=== PATIENT | female | born 1960 | race Caucasian/White ===

== ENCOUNTER 2018-05-24 06:18 | Day surgery (SDC) | payer OTHER ==
[2018-05-24] MEDS ORDERED: Ringers Lactate 1,000 ML IV ONE (06:52)
[2018-05-24] MEDS ORDERED: FENTANYL CITR 100 MCG/2 ML ONE (06:55)
[2018-05-24] MEDS ORDERED: LIDOCAINE 2% MPF 5 ML VIAL ONE (06:56)
[2018-05-24] MEDS ORDERED: MIDAZOLAM HCL 2 MG/2 ML INJ ONE (06:56)
[2018-05-24] MEDS ORDERED: PROPOFOL 200 MG/20 ML VIAL IV ONE (06:56)
[2018-05-24] MEDS ORDERED: NA CHLORIDE 0.9% 2,000 ML ONE (07:20)
[2018-05-24] MEDS ORDERED: LIDOCAINE 1% W/EPI 1:100,000 MDV 50 ML VIAL ONE (07:28)
[2018-05-24] MEDS ORDERED: KETOROLAC 30 MG/ML INJ ONE (08:12)
[2018-05-24 09:48] VITALS: BP 125/74; TEMP 97.8; O2SAT 99
--- NOTE | 2018-05-24 18:54 | OP ---
Date of Procedure: 05/24/2018 Surgeon: Debbie Garcia MD Preoperative Diagnoses: Postcoital bleeding and pelvic pain. Postoperative Diagnoses: Postcoital bleeding and pelvic pain, and stage II cystocele or anterior wal l prolapse with uterine prolapse. Anesthesia: LMA with paracervical block. Specimens: Endometrial curettings. Complications: None. Drains: None. Condition: The patient is stable. Findings: Uterine cavity empty, lining thin. POP-Q -1, 0, -2, 5, moderate, 7, -2, -2, -3. On recto vaginal exam, the posterior cul-de-sac appeared to be full and this is in between the uterus and the rectum. Description Of Procedure: After informed consent was verified, the patient was taken back to the OR, placed in a supine fashion on the operating table. After MAC was given, she was placed in a dorsal lithotomy position. Pelvic exam was performed. Uterus was found to be anteflexed, small. Please re tanner to the POP-Q above for the prolapse exam. Rectovaginal exam was performed. The anterior lip was grasped with 2 Allis clamps. A paracervical block was given in the usual fashion with 1% lidocaine mixed with 1:100,000 epinephrine, 5 cc at each location using a Betadine prep. The cervix was preppe d. Diagnostic SlimLine hysteroscope was used to enter the cervical canal. There was cervical stenos is, so I had to pull the scope back and dilate in order to get effective entry into the canal. After the canal was entered, the hysteroscope was directed into the uterine cavity. The cavity was e mpty. Both tubal ostia were well visualized. Lining was atrophic. The scope was pulled out. Endom etrial curettings were performed after dilating to a 15-[place]. A very scant amount of endometrium w as obtained, which was consistent with the findings on the exam. After the Allises were removed, ins trument, needle, and sponge counts were done and were correct at the end of the case. Then, a rectov aginal finger was done and exam as above. EBL was minimal. The patient was recovered from anesthesi a in the OR and taken to PACU in stable condition. She will follow up with me in 1 week and we will have a discussion on her further treatment plan. SHERIF Voice ID: [id number] Report ID: [id number]
== END 2018-05-24 09:12 | disposition home or self-care (01) ==
LOC: OR 06:18
PROVIDERS: ATTEND Obstetrics & Gynecology
PROC: 0UJD8ZZ Inspection of Uterus and Cervix, Via Natural or Artificial Opening Endoscopic (ICD-10-PCS; 2018-05-24)
PROC: 0UDB7ZX Extraction of Endometrium, Via Natural or Artificial Opening, Diagnostic (ICD-10-PCS; principal; 2018-05-24 07:30)
DX: N93.0 Postcoital and contact bleeding (principal); R10.2 Pelvic and perineal pain; N81.2 Incomplete uterovaginal prolapse; Z98.51 Tubal ligation status; Z83.3 Family history of diabetes mellitus; Z82.49 Family history of ischemic heart disease and other diseases of the circulatory system; Z82.3 Family history of stroke
CPT/HCPCS: 81025; 88305; J2250; J2704; J3010; J7030

== ENCOUNTER 2018-07-12 06:23 | Day surgery (SDC) | payer OTHER ==
[2018-07-06 12:08] LABS: Absolute Lymphocytes (CBC) 1.8 K/uL (0.7-4.9); Absolute Monocytes 0.4 K/uL (0.1-1.3); Absolute Neutrophil 2.8 K/uL (1.8-8.0); Basophils % 0.9 % (0-1.3); Hematocrit 37.5 % (36.0-45.0); Lymphocytes % 32.4 % (15.3-44.8); MPV 9.3 fL (7.6-11.3); Monocytes % 8.1 % (3.3-12.3); RBC Red Blood Cell Count 4.24 M/uL (3.86-4.86)
[2018-07-06 12:16] LABS: Urine Appearance CLEAR; Urine Bilirubin NEGATIVE (NEG); Urine Blood NEGATIVE (NEG); Urine Color YELLOW; Urine Glucose NEGATIVE (NEG); Urine Protein NEGATIVE (NEG); Urine Urobilinogen 0.2 mg/dL (0.2-1.0); Urine pH 6.5 (5.0-7.0)
[2018-07-06 12:18] LABS: Urine Microscopic Reflex NO UMIC
[2018-07-12] MEDS ORDERED: Ringers Lactate 1,000 ML IV ONE ×3 (06:49→11:25)
[2018-07-12] MEDS ORDERED: SCOPOLAMINE HYDROBROMIDE PATCH TD ONE (06:49)
[2018-07-12] MEDS ORDERED: PROPOFOL 200 MG/20 ML VIAL IV ONE (07:05)
[2018-07-12] MEDS ORDERED: ROCURONIUM 50 MG/5 ML VIAL IV ONE ×2 (07:06→09:01)
[2018-07-12] MEDS ORDERED: LIDOCAINE 2% MPF 5 ML VIAL ONE (07:07)
[2018-07-12] MEDS ORDERED: GLYCOPYRROLATE 0.2 MG/ML SYR ONE (07:07)
[2018-07-12] MEDS ORDERED: FENTANYL CITR 250 MCG/5 ML ONE (07:08)
[2018-07-12] MEDS ORDERED: MIDAZOLAM HCL 2 MG/2 ML INJ ONE (07:09)
[2018-07-12] MEDS ORDERED: ONDANSETRON 4 MG/2 ML VIAL ONE ×2 (07:10→10:53)
[2018-07-12] MEDS ORDERED: DEXAMETHASONE 10 MG/ML VIAL ONE (07:11)
[2018-07-12] MEDS: CEFAZOLIN 2GM (PREMIX IV) 2 GM/50 ML BAG ONE ×2 (07:17→08:00)
[2018-07-12] MEDS: NA CHLORIDE 0.9% 1,000 ML ONE ×2 (07:17→08:00)
[2018-07-12] MEDS ORDERED: FAMOTIDINE 20 MG/2 ML VIAL IV ONE (08:30)
[2018-07-12] MEDS ORDERED: EPHEDRINE SULF 50 MG/ML VIAL ONE (09:02)
--- NOTE | 2018-07-12 10:02 | P.OP ---
Sky Diver: Debbie Garcia (Intra-op consulte) Preoperative diagnosis: Small Bowel Adhesions Postoperative diagnosis: Small Bowel Adhesions Primary procedure: Laparoscopic Adhesiolysis <30 min Anesthesia: GETA Estimated blood loss: <1cc Specimen: None Findings: Thin and thick adhesions from small bowel to anterior abdominal wall Complications: None Transferred to: Other (Patient remained in OR for completion of Dr. Garcia case) Condition: Good
[2018-07-12] MEDS ORDERED: MORPHINE 10 MG/ML VIAL ONE (10:06)
[2018-07-12] MEDS ORDERED: FENTANYL CITR 100 MCG/2 ML ONE (10:13)
[2018-07-12] MEDS ORDERED: CEFAZOLIN 1GM (PREMIX IV) 1 GM/50 ML BAG ONE (10:48)
[2018-07-12] MEDS ORDERED: NEOSTIGMINE 1 MG/ML -5 ML SYRINGE ONE (10:53)
--- NOTE | 2018-07-12 12:04 | OP ---
Date of Procedure: 07/12/2018 Surgeon: Fercho Vera MD, This is an intraoperative consult from Dr. Debbie Garcia for intraabdominal adhesiolysis. Preoperative Diagnosis: Small bowel adhesions. Postoperative Diagnosis: Small bowel adhesions. Procedure Performed: Laparoscopic adhesiolysis, less than 30 minutes. Anesthesia: General endotracheal. Estimated Blood Loss: Less than 1 cc. Specimen: None. Findings: Thick and thin adhesions of the small bowel to the anterior abdominal wall predominantly i n the lower pelvic area. Complications: None. Disposition: The patient remained in the operating room for the completion of the case per Dr. Jensen lynn in good condition. Please see Dr. Garcia's note for full details regarding her operation as I am a simple intraoperative consultation. Procedure In Detail: Dr. Garcia was completing her aspect of the case when she noted significant t hick adhesions to the anterior abdominal wall concerning for either a hernia or significant adhesions to the anterior abdominal wall. Therefore, an intraoperative consult was obtained by myself per Dr. Garcia's request. I inspected the abdominal wall laparoscopically and found that there were thick adhesions from the mid to distal small bowel to the anterior abdominal wall. The thin alveolar adhe sions were taken down using both sharp dissection as well as LigaSure device with gentle traction. T he small bowel adhesions were taken down laparoscopically without any injury to small bowel evident, and the small bowel was inspected at the end of the procedure. I therefore completed my aspect of th e operation. Dr. Garcia assisted me for this portion. I then returned the control back to Dr. Ana zapata in its entirety and completed the this aspect of the case. Please see Dr. Garcia's note for full details regarding her aspect of the operation. All counts were correct at the end of my aspect of the operation. Thank for this consult. SANG/AMY Voice ID: [id number] Report ID: [id number]
[2018-07-12] MEDS ORDERED: KETOROLAC 30 MG/ML INJ ONE (12:11)
[2018-07-12] MEDS ORDERED: MEPERIDINE HCL 25 MG/0.5 ML ONE (12:28)
[2018-07-12] MEDS ORDERED: HYDROCODONE/APAP 5/325 MG TAB ONE (13:39)
[2018-07-12 14:27] VITALS: BP 119/81; TEMP 98; O2SAT 97
--- NOTE | 2018-07-23 03:14 | OP ---
Date of Procedure: 07/12/2018 Surgeon: Debbie Garcia MD Vapor Coater: Naima Thornton. Preoperative Diagnosis: Pelvic pain, deep dyspareunia, postcoital bleeding. Postoperative Diagnosis: Pelvic pain, deep dyspareunia, postcoital bleeding and intra-abdominal adhe sions of the left tube and ovary as well as small bowel, large bowel, and omentum. Procedures Performed: Diagnostic laparoscopy with extensive lysis of adhesions, which took more than 50% of the case, total laparoscopic hysterectomy, bilateral salpingo-oophorectomy, then uterosacral suspension, colpopexy, cystoscopy. Anesthesia: General endotracheal. Vapor Coater Consulting Surgeon: Fercho Vera MD. Please refer to his note for his part of the surgery and the procedure. Specimens: Uterus, bilateral tubes, and ovaries. Complications: No complications. Drains: No drains. Condition: Stable. Indications: The patient is a 58-year-old with presenting symptoms of pelvic pain, deep dyspareunia and postcoital bleeding. She was investigated. Ultrasound did not show any adnexal masses. Endomet rial sampling did not show any atypia or malignancy. Her Pap smear had. DICTATION ENDS HERE TONG/AMY Voice ID: [id number] Report ID: [id number]
--- NOTE | 2018-07-23 03:29 | OP ---
Date of Procedure: 07/12/2018 Surgeon: Debbie Garcia MD Assembler 1St Shift: Naima Thornton. Preoperative Diagnoses: 1.Pelvic pain. 2.Deep dyspareunia and postcoital bleeding, lateral cystocele, stage II. Postoperative Diagnoses: 1.Postcoital bleeding. 2.Pelvic pain. 3.Deep dyspareunia. 4.Uterine prolapse with anterior wall prolapse, which was mostly an apical defect and did not have a ny further anterior wall prolapse after fixing the apex. 5.Extensive bowel adhesions. Specimens: Uterus, bilateral tubes and ovaries. Procedures Performed: 1.Total laparoscopic hysterectomy and bilateral salpingo-oophorectomy. 2.Extensive lysis of small bowel, sigmoid, left tube and ovarian adhesions, which took more than 50% of the case. 3.Uterosacral ligament suspension, colpopexy and cystoscopy. 4.There was a periumbilical hernia possibly, which was also repaired. Estimated Blood Loss: Minimal. Complications: No complications. Drains: None. Condition: Stable. Findings: Extensive bowel adhesions of the small bowel to the anterior abdominal wall, especially in the right lower quadrant in the midline and to the left of the periumbilical area. The sigmoid adhe sions were significant to the left ovary and tube, completely masking the left lateral wall. Then, t here were sigmoid adhesions to the uterus. There is significant uterine prolapse, which after correc tion did not reveal any anterior wall defects. Indications For Procedure: The patient is a 58-year-old, who presented with pelvic pain and deep dys pareunia. She also reported postcoital bleeding. Her Pap smears were negative. Her transvaginal ul trasound did not show any adnexal masses and on endometrial sampling, there was no endometrial atypia or malignancy. I did discuss after negative GI workup and genitourinary symptoms, the patient was c omplaining of mostly vaginal vault symptoms and the pain symptoms. She is through menopause without any periods. Her POP-Q is as follows -1, -1, -4, 4 cm, moderate 7, -2, -2- 5. On examination, uterus was retroflexed with some nodularity in the posterior cul-de-sac. No adnexal masses were noted. So consented the patient for hysterectomy, bilateral salpingo-oophorectomy, possible endometriosis ex cision if found, cystoscopy and for the prolapse, uterosacral ligament suspension, colpopexy, and if there was still an anterior defect present, then I would do an anterior repair as well as a perineorr haphy as needed. She had an appendectomy in 1990 and abdominoplasty earlier this year. She also had a tubal ligation as the other intraabdominal surgery besides the above 2. So, anticipating this plan was to make a colon praumbilical incision to get into the abdominal cavity. Description Of Procedure: After informed consent was verified, 2 g of Ancef were given. The patient was taken back to the OR, placed in supine fashion on the operating table. After general anesthesia was given, she was placed in a dorsal lithotomy position. Arms were tucked by the side, positioning checked and pelvic exam performed. POP-Q as follows: -2, -1, -3, 4 cm moderate, 7, -2, -2 and -4. After replacing the uterus back in its place at the apex, there was not a significant anterior wall bulge and so plan was to perform an uterosacral suspension, colpopexy, then figure if there is any an terior pair or perineorrhaphy. Abdomen, vulva, vagina, and perineum were prepped and draped in a sterile fashion. Villar was placed to drain the bladder and attached to cysto tubing to an LR bag, emptied 300 for retrograde filling. This was left on the floor for drainage. VCare large was introduced into place and fixed. This area was draped. A 1 cm infra supraumbilical incision was made with a scalpel using the open laparoscopy technique. F ascia was incised, especially since there was an abdominoplasty. There was a curvilinear incision ma sami in the supraumbilical area and once the fascia was incised in the midline, the edges were tagged. Peritoneal cavity was entered. Peritoneum bluntly entered with the finger and then S retractors surendra alex to introduce the sound, the site of entry was checked and was unremarkable. However, just immedi ately inferior to the entry, there were several adhesions, especially there were dense adhesions of t he small bowel to the anterior abdominal wall in 1 particular location from the umbilicus to the righ t lower quadrant. These were plastered to the abdominal wall, possibly a hernia at some point becaus e I could not see a plane between this and the bowel. There were significant other adhesions, omental adhesions, small bowel adhesions and laterally sigmoi d adhesions. So, placed a 5 mm left lower quadrant port and then started to take down the adhesions just inferior to the umbilicus in a systematic fashion using sharp scissors. Then, once this was greg ar enough and using the suprapubic incision, the adhesions were also taken down using the technique t o make windows and taken down sharply, cauterizing with the bipolar as needed. If there was bleeding , but mostly this did not need to be done. The suprapubic area was cleaned up, then a 10 mm suprapub ic incision was made and by using the 10 mm scope through the suprapubic incision, the adhesions were taken down in the right lower quadrant as well. All the adhesions were taken down just leaving the small bowel loops to the anterior abdominal wall where they appeared to be adherent to the abdominal wall or possibly herniated through the abdominal wall defect due to the abdominoplasty that was done, could not recognize the site of the open appendectomy, incision or scar, so I decided to call Dr. Williams lara for consultation and he decided to take down the adhesions from [place] for the small bowel and I assisted him on this. Please refer to his dictation. Once these adhesions were taken down, I proce eded with the rest of my surgery. Then, attention was directed to the left lower quadrant where the sigmoid was adherent. I opened up the lateral wall. The natural attachment of the sigmoid was taken down working my way down towards the left tube and ovary. Once I got to the left tube and ovary and space was made here, the tube had to be dissected and pulled out of the adhesions. The lateral inci diego was made in the broad ligament to open up the structures here, then once opened up, the round li gament was distal. The medial leaf of the broad ligament was dissected; however, I could not see in the medial aspect of the broad ligament since the sigmoid colon was plastered to the left lateral wal l. So came down to the sigmoid, all the way down to the cul-de-sac, adhesions were here and started taking down the adhesions from the cul-de-sac all the way to the left uterosacral ligament. Once I g ot here with sharp dissection with scissors, then went back again to the IP ligament here. After devorah ing the natural attachment of the colon down, I was able to see the IP ligament. This was picked up and retracted laterally. The ovary was from the adhesions with sharp and cautery dissectio n. Once this was slit laterally, then the sigmoid colon was dissected from the medial leaf of the br oad ligament by creating small windows and taking adhesions down sharply carefully protecting the ure ter in the process by retracting and dissecting it laterally. Once all the way to the lateral wall w as dissected to the level of the left lateral aspect of the left uterosacral, then the entire sigmoid was retracted inferiorly and medially. The natural anatomy was restored by taking down these adhesi ons. There were omental adhesions that were present that were also taken down and this area to separ ate the sigmoid and the omentum was retracted superiorly. The small bowel was pushed up into the upp er abdominal cavity as well with the bag. Then, after all was done and setup, both ureters were visu alized from the pelvic brim to the ureteric tunnel and had no anatomic distortion. So, the plan was to use the LigaSure to start the hysterectomy. The round ligaments were taken down. The peritoneum in the anterior aspect was opened up to raise th e bladder flap all the way to the opposite side. Then, the round ligament on the right side was take n down. The utero-ovarian ligament was taken down. The dissected ovary was left alone. The posteri or broad ligament was taken down to the left uterosacral here. Dissection was performed to clearly s eparate the ureter from the lateral aspect of the uterosacral ligament, isolating the vessels. The b road ligament was taken down and the vessels were cleaned up. Then on the opposite side, similar dis section was performed to take down the tube. The utero-ovarian ligament, mesosalpinx, round ligament was taken down, anterior broad ligament was connected to complete the bladder flap and posteriorly t he broad ligament was taken down to the right uterosacral to open up the broad ligament. This was sk eletonized to isolate the vessels. Once this was done, the bladder flap was dissected. Attention was paid to the bladder flap. The cervix was large and there was cystic change, so I had t o make an incision on top of the VCare cup and sharp and cautery dissection were performed to retract about the bladder inferiorly about 3 cm from the area of the future colpotomy. Once this was done a nd the cup was cleared up, monopolar hook blade was used to create windows on the medial aspect of th e vessels on the right side. Then bipolar basket tip was used to cauterize the vessels, both ascendi ng and descending branches. Then, the LigaSure was used to cauterize and cut. Once this was done, t he vessels were . The cardinal ligaments were taken down as well all the way to the uterosa cral ligament on the right side. Then on the left side, similar dissection was performed. Everythin g was after cautery and cutting. Then, the cardinal ligaments were taken down. The suppor ts were taken down. The anterior midline vaginal wall was well exposed, about 4 cm. Then, once the colpotomy was performed, the monopolar hook blade in a circumferential fashion, the specimen was deta ched and this was pulled out through the vagina. A vaginal occluder bulb was placed here to retain t he pneumoperitoneum. Then, attention was directed to the adnexa and the left ovary and tube were dis sected, removed, and the right ovary and tube were removed as well. These were retrieved through the vagina as well as the suprapubic ports. Once they were all retrieved, thorough irrigation and sucti on were performed. There was excellent hemostasis at both sides. Then, vaginal closure was performe d with the help of a simple 0 Vicryl stitch at the left angle, then a simple 0 Vicryl suture placed a t the right angle, the tail of which was used to continuously run the vaginal cuff. Once this was cl osed, the suture was tied to the lateral left suture. Then, I took 0 PDS and the uterosacral ligamen t was plicated first on the left side from lateral to medial. Two sutures were taken running continu ous, then the posterior vaginal wall was taken and then the anterior vaginal wall and the suture was held on as hemostats. A similar suture was placed on the other side, did not go quite as high, but t he uterosacral ligament could be identified in its distal aspect. I started the suture and 2 sutures through the ligament, 1 through the rectovaginal septum, 1 through the anterior precervical fascia. All these were taken and the suture tied down without any similar lead. The other suture was also t ied down. There was excellent support at the apex. The camera was taken out. Cystoscopy was performed after removing the Villar with a 30-degree lens, n ormal saline and a 17-[place] sheath. There were normal strong jets of urine from both ureteric orifi ruth. No evidence of any trauma to the bladder. So at this point, the catheter was replaced. Vagina l exam was performed. There was excellent support. The point C was at -7 and point BA was -2 to -3, so vaginal occluder bulb was removed due to this exam and left out. Then back in, thoroughly examined all the pedicles. There was excellent hemostasis. After thorough irrigation and suction, the trocars were removed under direct vision. All the areas of dissection of the bowel, omentum were all checked and they were hemostatic. After all the trocars were removed, gas was deflated. Lois was removed. The fascia here was well exposed all the way down and sutures with 0 PDS were placed with 2 [id number] and these were ti ed down. Then the Villar was removed. Instrument, needle, and sponge counts were done and were corre ct at the end of the case. The suprapubic incision of the fascia was unable to be closed, but a deep stitch was placed. All the skin incisions were closed with the help of interrupted 4-0 Vicryl sutur es. The patient tolerated the procedure well. She will follow up with me in 1 week. SHERIF Voice ID: [id number] Report ID: [id number]
== END 2018-07-12 14:18 | disposition home or self-care (01) ==
LOC: OR 06:23
PROVIDERS: ATTEND Obstetrics & Gynecology
PROC: 0UT24ZZ Resection of Bilateral Ovaries, Percutaneous Endoscopic Approach (ICD-10-PCS; 2018-07-12)
PROC: 0UT74ZZ Resection of Bilateral Fallopian Tubes, Percutaneous Endoscopic Approach (ICD-10-PCS; 2018-07-12)
PROC: 0USG4ZZ Reposition Vagina, Percutaneous Endoscopic Approach (ICD-10-PCS; 2018-07-12)
PROC: 0DNN4ZZ Release Sigmoid Colon, Percutaneous Endoscopic Approach (ICD-10-PCS; 2018-07-12)
PROC: 0DN84ZZ Release Small Intestine, Percutaneous Endoscopic Approach (ICD-10-PCS; 2018-07-12)
PROC: 0DNW4ZZ Release Peritoneum, Percutaneous Endoscopic Approach (ICD-10-PCS; 2018-07-12)
PROC: 0UT94ZZ Resection of Uterus, Percutaneous Endoscopic Approach (ICD-10-PCS; principal; 2018-07-12 07:30)
DX: D25.9 Leiomyoma of uterus, unspecified (principal); N72 Inflammatory disease of cervix uteri; N94.6 Dysmenorrhea, unspecified; N93.0 Postcoital and contact bleeding; R10.2 Pelvic and perineal pain; N81.4 Uterovaginal prolapse, unspecified; K66.0 Peritoneal adhesions (postprocedural) (postinfection); K42.9 Umbilical hernia without obstruction or gangrene; N94.12 Deep dyspareunia; K44.9 Diaphragmatic hernia without obstruction or gangrene
CPT/HCPCS: 36415; 81003; 85025; 86850; 86900; 86901; 88305; 88307; J0690; J1100; J2175; J2250; J2405; J2704; J2710; J3010; J7030

== ENCOUNTER 2019-01-15 06:33 | Day surgery (SDC) | payer OTHER ==
[2019-01-14 13:57] LABS: Absolute Lymphocytes (CBC) 1.8 K/uL (0.7-4.9); Basophils % 1.1 % (0-1.3); Eosinophils % 6.8 % (0-4.4); Hematocrit 39.6 % (36.0-45.0); Lymphocytes % 32.3 % (15.3-44.8); MPV 8.8 fL (7.6-11.3); Monocytes % 6.9 % (3.3-12.3); RBC Red Blood Cell Count 4.48 M/uL (3.86-4.86)
[2019-01-14 14:11] LABS: Potassium 4.2 mmol/L (3.5-5.1)
--- NOTE | 2019-01-14 14:23 | RAD REPORT ---
EXAM DESCRIPTION: RAD - Chest Pa And Lat (2 Views) - 01/14/2019 1:49 pm CLINICAL HISTORY: Preop chest, pending cardiac catheterization COMPARISON: July 2013 TECHNIQUE: PA and lateral views of the chest were obtained. FINDINGS: The lungs are clear of failure, infiltrate or mass. Lung markings are mildly prominent but not clearly different from comparison. Heart size is normal and central vasculature is within norm al limits. No pleural effusion or pneumothorax seen. No acute bone finding. Degenerative and scolio tic changes to the spine are stable. No aortic abnormality. IMPRESSION: No acute cardiopulmonary process. No significant change from comparison.
[2019-01-14 14:55] LABS: Protime INR 0.94
--- OUTSIDE RECORDS SUMMARY | 2019-01-15 06:36 | XMS REPORT ---
:1960 [facility] Address [address] [place] [address] Dr. Sanchez [address] [place] [id number] Care Team Providers Name Role Phone Unavailable Unavailable Unavailable Problems This patient has no known problems. Allergies, Adverse Reactions, Alerts This patient has no known allergies or adverse reactions. Medications This patient has no known medications. Encounters Start End Encounter Admission Attending Care Care Encounter Date/Time Date/Time Type Type Clinicians Facility Department ID 2018-11-14 2018-11-14 Outpatient [id number] 07:40:00 07:40:00
[2019-01-15] MEDS ORDERED: HEPA 1000U/500MLS 1,000 UNIT/500 ML BAG IV ONE (06:52)
[2019-01-15] MEDS ORDERED: LIDOCAINE 1% MPF 30 ML VIAL ONE (06:52)
[2019-01-15] MEDS ORDERED: NA CHLORIDE 0.9% 500 ML ONE (06:57)
[2019-01-15] MEDS ORDERED: MIDAZOLAM HCL 2 MG/2 ML INJ ONE ×3 (07:35→07:56)
[2019-01-15] MEDS ORDERED: NITROGLYCERIN/D5W 0 MG/0 ML BTL IV ONE (07:36)
[2019-01-15] MEDS ORDERED: FENTANYL CITR 100 MCG/2 ML ONE (07:36)
[2019-01-15] MEDS ORDERED: ATROPINE SULF 1 MG/10 ML SYR IV ONE (07:36)
[2019-01-15] MEDS ORDERED: NITROGLYCERIN 100 MCG/ML SYR (for cath lab use only) IV ONE (07:36)
[2019-01-15] MEDS ORDERED: NA CHLORIDE 0.9% 0 ML ONE (07:36)
[2019-01-15] MEDS ORDERED: FLUMAZENIL 0.1 MG/ML (5 mL VIAL) IV ONE (07:55)
--- NOTE | 2019-01-15 12:16 | OP ---
Surgeon: Dwaine March MD Operator Bearer Systems: Dolores Reynolds. The patient was admitted for heart catheterization as an outpatient today, 01/15/2019. Procedure: Left heart catheterization. Selective coronary arteriogram. Indication: Unstable angina. Procedure In Detail: The patient received a total of 4 mg of Versed and 25 of fentanyl for sedation. She was prepped and draped in the routine sterile fashion. A 6-Angolan sheath introduced in the rig ht common femoral artery successfully. Angio-Seal was used to close the case. Coronary arteriograph y was done using 6-Angolan Balta catheter, left and right respectively. She had about a 30% stenosi s in the LAD right at the diagonal takeoff. The diagonal OM circumflex and RCA were normal. She was right dominant. There were no complications. Blood Loss: 5 cc. Final Diagnoses: Mild coronary artery disease. Plan: Plan is for medical therapy including statins. Anesthesia: Total conscious sedation was 30 minutes. RIAN/AMY Voice ID: [id number] Report ID: [id number]
[2019-01-16 18:42] VITALS: BP 110/72; TEMP 97.2; O2SAT 98
== END 2019-01-15 10:10 | disposition home health service (06) ==
LOC: CCL 06:33
PROC: B201YZZ Plain Radiography of Multiple Coronary Arteries using Other Contrast (ICD-10-PCS; principal; 2019-01-15)
DX: I25.110 Atherosclerotic heart disease of native coronary artery with unstable angina pectoris (principal); I10 Essential (primary) hypertension; E78.6 Lipoprotein deficiency; G47.30 Sleep apnea, unspecified; Z87.891 Personal history of nicotine dependence; Z82.49 Family history of ischemic heart disease and other diseases of the circulatory system
CPT/HCPCS: 36415; 71046; 80048; 85025; 85610; 85730; 93454; C1760; C1893; J0583; J2250; J3010

== ENCOUNTER 2019-03-17 14:58 | Emergency (ER) | payer OTHER ==
--- OUTSIDE RECORDS SUMMARY | 2019-03-17 15:02 | XMS REPORT ---
:1960 [facility] [address] [place] [address] Dr. Sanchez [address] [place] [id number] Care Team Providers Name Role Phone Unavailable Unavailable Unavailable Problems This patient has no known problems. Allergies, Adverse Reactions, Alerts This patient has no known allergies or adverse reactions. Medications This patient has no known medications. Encounters Start End Encounter Admission Attending Care Care Encounter Date/Time Date/Time Type Type Clinicians Facility Department ID 2018-11-14 2018-11-14 Outpatient [facility] [id number] 07:40:00 07:40:00
--- OUTSIDE RECORDS SUMMARY | 2019-03-17 15:02 | XMS REPORT | Summary of Care ---
:1960 Author Organization [facility] Address [address] [place] [id number]- Encounter HQ Mamadou(FIN) [id number] Date(s): 11/14/18 - 11/14/[address] [address]- Discharge Disposition: Home or Self Care Attending Physician: Rashi Franklin MD Referring Physician: Rashi Franklin MD Vital Signs Most recent to oldest 1 2 3 [Reference Range]: Height 162.56 cm 162.56 cm (11/14/18 8:09 AM) (10/26/18 10:57 AM) Blood Pressure [90-140/60-90 119/84 mmHg 117/82 mmHg 121/82 mmHg mmHg] (11/14/18 1:00 PM) (11/14/18 12:45 PM) (11/14/18 12:30 PM) Respiratory Rate [14-20 BRMIN] 16 BRMIN 13 BRMIN 20 BRMIN (11/14/18 1:00 PM) *LOW* (11/14/18 12:30 PM) (11/14/18 12:45 PM) Weight 77.004 kg 79.091 kg (11/14/18 8:09 AM) (10/26/18 10:57 AM) Body Mass Index 29.14 m2 29.93 m2 (11/14/18 8:09 AM) (10/26/18 10:57 AM) Problem List Condition Effective Dates Status Health Status Informant GERD (gastroesophageal reflux Active disease)(Confirmed) Sleep apnea(Confirmed) Active Allergies, Adverse Reactions, Alerts No Known Medication Allergies Medications acetaminophen (ANES) Route: IV, Drug form: INJ, ONCE, Stop date: 11/14/18 11:01:00 CDT Start Date: 11/14/18 Stop Date: 11/14/18 Status: CompletedAdrenevive Adrenevive, 2 capsules, PO, Daily, Refill(s) 0 Start Date: 10/26/18 Status: OrderedANES albuterol 0.083% inhalation solution 2.49 mg, 3 mL, Route: NEB, Drug form: SOLN, Q20Min, Dosing Weight 77.004, kg, PRN Wheezing, Priority: STAT, Start date: 11/14/18 11:53:00 CDT, Duration: 30 day, Stop date: 12/14/18 11:52:00 CDT Notes: SEE RT DOCUMENTATION (Same as: Proventil) Start Date: 11/14/18 Stop Date: 11/14/18 Status: DiscontinuedANES diphenhydrAMINE 12.5 mg, 0.25 mL, Route: IVP, Drug form: INJ, Q6H, Dosing Weight 77.004, kg, PRN Itching, Start date: 11/14/18 11:53:00 CDT, Duration: 30 day, Stop date: 11:52:00 CDT Notes: (Same as: Benadryl) Start Date: 11/14/18 Stop Date: 11/14/18 Status: DiscontinuedANES flumazenil 0.2 mg, 2 mL, Route: IVP, Drug form: INJ, PRN, Dosing Weight 77.004, kg, PRN Benzodiazepine Reversal, Initial dose, Start date: 11/14/18 11:53:00 CDT, Duration: 30 day, Stop date: 12/14/18 11:52:00 CDT Notes: (Same as: Romazicon) Start Date: 11/14/18 Stop Date: 11/14/18 Status: DiscontinuedANES hydrALAZINE 10 mg, 0.5 mL, Route: IVP, Drug form: INJ, Q20Min, Dosing Weight 77.004, kg, PRN Elevated BP, Start date: 11/14/18 11:53:00 CDT, Duration: 2 doses or times, Stop date: Limited # of times Notes: (Same as: Apresoline)Push over 5 minutes Start Date: 11/14/18 Stop Date: 11/14/18 Status: DiscontinuedANES HYDROmorphone 0.5 mg, 0.25 mL, Route: IVP, Drug form: INJ, Q5Min, Dosing Weight 77.004, kg, PRN Pain Score 7-10, Start date: 11/14/18 11:53:00 CDT, Duration: 4 doses or times, Stop date: Limited # of times Notes: Same as Dilaudid Start Date: 11/14/18 Stop Date: 11/14/18 Status: DiscontinuedANES morphine Sulfate 2 mg, 0.5 mL, Route: IVP, Drug form: SOLN, Q5Min, Dosing Weight 77.004, kg, PRN Pain Score 4-6, Start date: 11/14/18 11:53:00 CDT, Duration: 5 doses or times, Stop date: Limited # of times Notes: (Same as:MORPhine Sulfate) Start Date: 11/14/18 Stop Date: 11/14/18 Status: DiscontinuedANES naloxone 0.4 mg, 1 mL, Route: IVP, Drug form: INJ, Q2MIN, Dosing Weight 77.004, kg, PRN Narcotic Reversal, Start date: 11/14/18 11:53:00 CDT, Duration: 8 doses or times , Stop date: Limited # of times Notes: Same as Narcan Start Date: 11/14/18 Stop Date: 11/14/18 Status: DiscontinuedANES ondansetron 4 mg, 2 mL, Route: IVP, Drug form: INJ, ONCE, Dosing Weight 77.004, kg, PRN Nausea & Vomiting, Start date: 11/14/18 11:53:00 CDT Notes: (Same as: Anne) MEDICATION WASTE Product Size: 4 mgProduct Wasted: ___ mg Start Date: 11/14/18 Stop Date: 11/14/18 Status: DiscontinuedANES racepinephrine 11.25 mg, 0.5 mL, Route: NEB, Drug Form: SOLN, Dosing Weight 77.004, kg, PRN, PRN Shortness of breath, Start date: 11/14/18 11:53:00 CDT, Duration: 30 day, Stop date: 12/14/18 11:52:00 CDT Notes: (racepinephrine *2.25% inh 0.5ml SOLN) (Same as:S2) Start Date: 11/14/18 Stop Date: 11/14/18 Status: DiscontinuedcefOXitin (ANES) Route: IV, Drug form: INJ, ONCE, Stop date: 11/14/18 10:56:00 CDT Start Date: 11/14/18 Stop Date: 11/14/18 Status: CompletedEstrol pellets Estrol pellets, 4 mg=, frequency unknown, Refill(s) 0 Start Date: 10/26/18 Status: OrderedfentaNYL (ANES) Route: IV, Drug form: INJ, ONCE, Stop date: 11/14/18 10:56:00 CDT Start Date: 11/14/18 Stop Date: 11/14/18 Status: CompletedFerrochel Ferrochel, one tablet, PO, Daily, Refill(s) 0 Start Date: 10/26/18 Status: Orderedglycopyrrolate (ANES) Route: IV, Drug form: INJ, ONCE, Stop date: 11/14/18 12:00:00 CDT Start Date: 11/14/18 Stop Date: 11/14/18 Status: Completedheparin 5,000 unit, 1 mL, Route: SUB-Q, Drug form: INJ, ONCALL, Start date: 11/14/18 6: 00:00 CDT, Duration: 1 doses or times Notes: porcine heparin Start Date: 11/14/18 Stop Date: 11/14/18 Status: CompletedK-force K-force, one capsule, PO, Daily, Refill(s) 0 Start Date: 10/26/18 Status: OrderedketOROLAC (ANES) IV, ONCE Start Date: 11/14/18 Stop Date: 11/14/18 Status: CompletedLactated Ringers Injection IV (ANES) 1000 mL Route: IV, Total Volume: 1,000, Start date: 11/14/18 10:12:00 CDT, Stop date: 11:12:00 CDT Start Date: 11/14/18 Stop Date: 11/14/18 Status: Completedlidocaine (ANES) Route: IV, Drug form: INJ, ONCE, Stop date: 11/14/18 10:56:00 CDT Start Date: 11/14/18 Stop Date: 11/14/18 Status: CompletedMagnesium Magnesium, one tablet, PO, Daily, Refill(s) 0 Start Date: 10/26/18 Status: OrderedMefoxin + Sodium Chloride 0.9% IV 100 mL 2 gm, Route: IVPB, ONCALL, Start date: 11/14/18 6:00:00 CDT, Duration: 1 doses or times, ABX Indication: Surgical Prophylaxis Notes: (Same As: Mefoxin) MEDICATION WASTE Product Size: 2000 mgProduct Wasted: ___ mg Start Date: 11/14/18 Stop Date: 11/14/18 Status: Discontinuedmidazolam (ANES) Route: IV, Drug form: SOLN, ONCE, Stop date: 11/14/18 11:01:00 CDT Start Date: 11/14/18 Stop Date: 11/14/18 Status: Completedmultivitamin one tablet, PO, Daily, 0 Refill(s) Start Date: 10/26/18 Stop Date: 11/14/18 Status: Discontinuedneostigmine (ANES) Route: IV, Drug form: INJ, ONCE, Stop date: 11/14/18 12:00:00 CDT Start Date: 11/14/18 Stop Date: 11/14/18 Status: Completedondansetron (ANES) Route: IV, Drug form: INJ, ONCE, Stop date: 11/14/18 11:57:00 CDT Start Date: 11/14/18 Stop Date: 11/14/18 Status: CompletedPepcid 20 mg, Route: IV, ONCE, Dosing Weight 77.004, kg, Start date: 11/14/18 9:35:00 CDT, Stop date: 11/14/18 9:35:00 CDT Start Date: 11/14/18 Stop Date: 11/14/18 Status: CompletedPrilosec 40 mg oral delayed release capsule 40 mg=1 cap, PO, Daily, # 30 cap, 0 Refill(s) Start Date: 10/26/18 Stop Date: 11/14/18 Status: Discontinuedprogesterone 150 mg, PO, Daily, 0 Refill(s) Start Date: 10/26/18 Status: Orderedpropofol (ANES) Route: IV, Drug form: INJ, ONCE, Stop date: 11/14/18 10:56:00 CDT Start Date: 11/14/18 Stop Date: 11/14/18 Status: CompletedReglan 10 mg, Route: IV, ONCE, Dosing Weight 77.004, kg, Start date: 11/14/18 9:36:00 CDT, Stop date: 11/14/18 9:36:00 CDT Start Date: 11/14/18 Stop Date: 11/14/18 Status: Completedrocuronium (ANES) Route: IV, Drug form: INJ, ONCE, Stop date: 11/14/18 11:06:00 CDT Start Date: 11/14/18 Stop Date: 11/14/18 Status: Completedscopolamine 1 patch, Route: TOP, Drug form: ERFILM, ONCALL, Start date: 11/14/18 6:00:00 CDT , Duration: 1 doses or times Notes: "Remove old patch before application of new patch" Change patch every 72 hours (Same as: Transderm-Scop) Start Date: 11/14/18 Stop Date: 11/14/18 Status: Completedsuccinylcholine (ANES) Route: IV, Drug form: INJ, ONCE, Stop date: 11/14/18 10:56:00 CDT Start Date: 11/14/18 Stop Date: 11/14/18 Status: Completedtestosterone 100 mg, frequency unknown, 0 Refill(s) Start Date: 10/26/18 Status: Ordered Results Most recent to oldest [Reference Range]: 1 Neutrophils # [1.5-8.1 K/CMM] 2.7 K/CMM (10/26/18 11:20 AM) Lymphocytes # [1.0-5.5 K/CMM] 1.6 K/CMM (10/26/18 11:20 AM) Monocytes # [0.0-0.8 K/CMM] 0.4 K/CMM (10/26/18 11:20 AM) Eosinophils # [0.0-0.5 K/CMM] 0.5 K/CMM (10/26/18 11:20 AM) Basophils # [0.0-0.2 K/CMM] 0.1 K/CMM (10/26/18 11:20 AM) Vitamin B1 [66.5-200.0 nMol/L] 74.5 nMol/L 1 *NA* (10/26/18 AM) eGFR 88 mL/min/1.73m2 2 *NA* (10/26/18 AM) A/G Ratio [0.7-1.6] 1.1 (10/26/18 AM) Albumin Lvl [3.5-5.0 g/dL] 3.8 g/dL (10/26/18 AM) Alk Phos [39-136 unit/L] 99 unit/L (10/26/18 AM) ALT [0-65 unit/L] 25 unit/L (10/26/18 AM) AGAP [10.0-20.0 mEq/L] 11.7 mEq/L (10/26/18 AM) AST [0-37 unit/L] 17 unit/L (10/26/18 AM) B/C Ratio [6-25] 17 (10/26/18 AM) Basophils [0.0-1.0 %] 1.2 % *HI* (10/26/18 AM) BUN [7-22 mg/dL] 13 mg/dL (10/26/18 AM) Calcium Lvl [8.5-10.5 mg/dL] 9.2 mg/dL (10/26/18 AM) Chloride Lvl [95-109 mEq/L] 107 mEq/L (10/26/18 AM) CO2 [24-32 mEq/L] 28 mEq/L (10/26/18 AM) Creatinine Lvl [0.50-1.40 mg/dL] 0.76 mg/dL (10/26/18 AM) Eosinophils [0.0-4.0 %] 8.8 % *HI* (10/26/18) Globulin [2.7-4.2 g/dL] 3.6 g/dL (10/26/18 AM) Glucose Lvl [70-99 mg/dL] 90 mg/dL (10/26/18 AM) Hct [36.0-48.0 %] 39.8 % (4/12/19 11:20 AM) Hgb [12.0-16.0 g/dL] 13.2 g/dL (10/26/18 AM) Potassium Lvl [3.5-5.1 mEq/L] 4.7 mEq/L (10/26/18 AM) Lymphocytes [20.0-40.0 %] 30.7 % (10/26/18 AM) MCH [27.0-31.0 pg] 29.1 pg (10/26/18 AM) MCHC [32.0-36.0 g/dL] 33.3 g/dL (10/26/18 AM) MCV [80.0-98.0 fL] 87.5 fL (10/26/18 AM) Monocytes [2.0-12.0 %] 8.4 % (10/26/18 AM) MPV [7.4-10.4 fL] 8.5 fL (10/26/18 AM) Sodium Lvl [135-145 mEq/L] 142 mEq/L (10/26/18 AM) Platelet [133-450 K/CMM] 263 K/CMM (10/26/18 AM) Segs [45.0-75.0 %] 50.9 % (10/26/18 AM) Total Protein [6.4-8.4 g/dL] 7.4 g/dL (10/26/18 AM) RBC [4.20-5.40 M/CMM] 4.55 M/CMM (10/26/18 AM) RDW [11.5-14.5 %] 14.7 % *HI* (10/26/18 AM) Bili Total [0.2-1.3 mg/dL] 0.5 mg/dL (10/26/18 AM) WBC [3.7-10.4 K/CMM] 5.3 K/CMM (10/26/18 AM) 1Result Comment: This test was developed and its performance characteristics determined by [facility]. It has not been cleared or approved by the Food and Drug Administration. Performed At: [facility] [address] [id number] Adams Cannon MD Ph:[phone] Comment: The eGFR is calculated using the CKD-EPI formula. In most young, healthy individualsthe eGFR will be >90 mL/min/1.73m2. The eGFR declines with age. An eGFR of 60-89 may be normal insome populations, particularly the elderly, for whom the CKD-EPI formula has not been extensively validated. Use of the eGFR is not recommended in the following populations: Individuals with unstable creatinine concentrations, including patients and those with serious co-morbid conditions. Patients with extremes in muscle mass or diet. The data above are obtained from the National Kid[employer] Disease Education Program ( NKDEP) which additionally recommends that when the eGFR is used in patients with extremes of body mass index for purposesof drug dosing, the eGFR should be multiplied by the estimated BMI. Immunizations No data available for this section Procedures Procedure Date Related Diagnosis Body Site Status Appendectomy Completed Breast augmentation Completed Facelift operation Completed Miscellaneous operations1 Completed Total hysterectomy Completed 1heart cath 2016, neck surgery 2014, back surgery 2016 Social History Social History Type Response Smoking Status Former smoker; Type: Cigarettes; Exposure to Tobacco Smoke None ; Cigarette Smoking Last 365 Days No; Reg Smoking Cessation Counseling Yes entered on: 10/26/18 Assessment and Plan No data available for this section
--- OUTSIDE RECORDS SUMMARY | 2019-03-17 15:02 | XMS REPORT | Continuity of Care Document ---
:1960 Author Organization [facility] Information [place] Care Team Providers Name Role Phone [facility] Information iPowow Unavailable Unavailable Problems Problem Status Onset Classification Date Comments Source Date Reported K44.9,DIAPHRAGMATIC Active 10/10/19 [facility] HERNIA WITHOUT 19 [place] OBSTR Acute maxillary Resolved Problem 06/11/2018 [place] sinusitis [facility] Cervical adenopathy Resolved Problem 06/11/2018 [facility] Gastroesophageal Active Problem 11/16/2018 [facility] reflux disease [facility] (disorder) Sleep apnea Active Problem 11/16/2018 [facility] (finding) [facility] Medications Medication Details Route Status Patient Ordering Order Source Instructions Provider Date neostigmine Route: IV, Inactive 11/14[facility] (ANES) Drug form: 2018 [facility] INJ, ONCE, Stop date: 11/14/18 12:00:00 CDT glycopyrrolate Route: IV, Inactive 11/14[facility] (ANES) Drug form: 2018 [facility] INJ, ONCE, Stop date: 11/14/18 12:00:00 CDT ketOROLAC (ANES) IV, ONCE Inactive [facility] 2018 [facility] ondansetron Route: IV, Inactive 11/14[facility] (ANES) Drug form: 2018 [facility] INJ, ONCE, Stop date: 11/14/18 11:57:00 CDT Ondansetron 4 mg, 2 mL, Inactive 11/14[facility] Route: IVP2018 [facility] Drug form: INJ, ONCE, Dosing Weight 77.004, kg, PRN Nausea & Vomiting, Start date: 11/14/18 11:53:00 CDTNotes: (Same as: Anne) MEDICATION WASTE Product Size: 4 mg Product Wasted: ___ mg Morphine 2 mg, 0.5 mL, Inactive [facility] Route: IVP, 2018 [facility] Drug form: SOLN, Q5Min, Dosing Weight 77.004, kg, PRN Pain Score 4-6, Start date: 11/14/18 11:53:00 CDT, Duration: 5 doses or times, Stop date: Limited # of timesNotes: (Same as:MORPhine Sulfate) Hydromorphone 0.5 mg, 0.25 Inactive 11/14[facility], Route: [address] [place] [address] IVP, Drug form: INJ, Q5Min, Dosing Weight 77.004, kg, PRN Pain Score 7-10, Start date: 11/14/18 11:53:00 CDT, Duration: 4 doses or times, Stop date: Limited # of timesNotes: Same as Dilaudid Flumazenil 0.2 mg, 2 mL, Inactive 11/14[facility] Route: IVP, 2018 [facility] Drug form: INJ, PRN, Dosing Weight 77.004, kg, PRN Benzodiazepin e Reversal, Initial dose, Start date: 11/14/18 11:53:00 CDT, Duration: 30 day, Stop date: 12/14/18 11:52:00 CDTNotes: (Same as: Romazicon) Naloxone 0.4 mg, 1 mL, Inactive 11/14[facility] Route: IVP, 2018 [facility] Drug form: INJ, Q2MIN, Dosing Weight 77.004, kg, PRN Narcotic Reversal, Start date: 11/14/18 11:53:00 CDT, Duration: 8 doses or times, Stop date: Limited # of timesNotes: Same as Narcan Racepinephrine 11.25 mg, 0.5 Inactive 11/14[facility], Route: [address] [place] [address], Drug Form: SOLN, Dosing Weight 77.004, kg, PRN, PRN Shortness of breath, Start date: 11/14/18 11:53:00 CDT, Duration: 30 day, Stop date: 12/14/18 11:52:00 CDTNotes: (racepinephri ne *2.25% inh 0.5ml SOLN) (Same as:S2) Diphenhydramine 12.5 mg, 0.25 Inactive 11/14[facility] mL, Route: [address] [place] [address] IVP, Drug form: INJ, Q6H, Dosing Weight 77.004, kg, PRN Itching, Start date: 11/14/18 11:53:00 CDT, Duration: 30 day, Stop date: 12/14/18 11:52:00 CDTNotes: (Same as: Benadryl) Albuterol 0.83 2.49 mg, 3 Inactive [facility] MG/ML Inhalant mL, Route: 2018 [facility] Solution NEB, Drug form: SOLN, Q20Min, Dosing Weight 77.004, kg, PRN Wheezing, Priority: STAT, Start date: 11/14/18 11:53:00 CDT, Duration: 30 day, Stop date: 12/14/18 11:52:00 CDTNotes: SEE RT DOCUMENTATION (Same as: Proventil) Hydralazine 10 mg, 0.5 Inactive [facility] mL, Route: 2018 [facility] IVP, Drug form: INJ, Q20Min, Dosing Weight 77.004, kg, PRN Elevated BP, Start date: 11/14/18 11:53:00 CDT, Duration: 2 doses or times, Stop date: Limited # of timesNotes: (Same as: Apresoline) Push over 5 minutes rocuronium Route: IV, Inactive 11/14[facility] (ANES) Drug form: 2018 [facility] INJ, ONCE, Stop date: 11/14/18 11:06:00 CDT midazolam (ANES) Route: IV, Inactive 11/14[facility] Drug form: 2018 [facility] SOLN, ONCE, Stop date: 11/14/18 11:01:00 CDT acetaminophen Route: IV, Inactive 11/14[facility] (ANES) Drug form: 2018 [facility] INJ, ONCE, Stop date: 11/14/18 11:01:00 CDT cefOXitin (ANES) Route: IV, Inactive 11/14[facility] Drug form: 2018 [facility] INJ, ONCE, Stop date: 11/14/18 10:56:00 CDT succinylcholine Route: IV, Inactive 11/14[facility] (ANES) Drug form: 2018 [facility] INJ, ONCE, Stop date: 11/14/18 10:56:00 CDT propofol (ANES) Route: IV, Inactive 11/14[facility] Drug form: 2018 [facility] INJ, ONCE, Stop date: 11/14/18 10:56:00 CDT lidocaine (ANES) Route: IV, Inactive 11/14[facility] Drug form: 2018 [facility] INJ, ONCE, Stop date: 11/14/18 10:56:00 CDT fentaNYL (ANES) Route: IV, Inactive [facility] Drug form: [address] [place] [address] INJ, ONCE, Stop date: 11/14/18 10:56:00 CDT Lactated Ringers Route: IV, Inactive 11/14[facility] Injection IV Total Volume: [address] [place] [address] (ANES) 1000 mL 1,000, Start date: 11/14/18 10:12:00 CDT, Stop date: 11/14/18 11:12:00 CDT Reglan 10 mg, Route: Inactive 11/14[facility] IV, ONCE, 2018 [facility] Dosing Weight 77.004, kg, Start date: 11/14/18 9:36:00 CDT, Stop date: 11/14/18 9:36:00 CDT Pepcid 20 mg, Route: Inactive 11/14[facility] IV, ONCE, 2018 [facility] Dosing Weight 77.004, kg, Start date: 11/14/18 9:35:00 CDT, Stop date: 11/14/18 9:35:00 CDT heparin 5,000 unit, 1 Inactive [facility] mL, Route: [address] [place] [address] SUB-Q, Drug form: INJ, ONCALL, Start date: 11/14/18 6:00:00 CDT, Duration: 1 doses or timesNotes: porcine heparin scopolamine 1 patch, Inactive [facility] Route: TOP, 2018 [facility] Drug form: ERFILM, ONCALL, Start date: 11/14/18 6:00:00 CDT, Duration: 1 doses or timesNotes: "Remove old patch before application of new patch" Change patch every 72 hours (Same as: Transderm-Sco p) Mefoxin + Sodium 2 gm, Route: Inactive [facility] Chloride 0.9% IV IVPB, ONCALL, [address] [place] [address] 100 mL Start date: 11/14/18 6:00:00 CDT, Duration: 1 doses or times, ABX Indication: Surgical ProphylaxisNo juliocesar: (Same As: Mefoxin) MEDICATION WASTE Product Size: 2000 mg Product Wasted: ___ mg Estrol pellets Estrol Active 10/26[facility] pellets, 4 2018 mg=, frequency unknown, Refill(s) 0 Testosterone 100 mg, Active [facility] frequency 2019 [place] unknown, 0 Refill(s) multivitamin one tablet, No Longer [facility] PO, Daily, 0 Active 2018 [facility] Refill(s) Progesterone 150 mg, PO, Active [facility] Daily, 0 2019 [facility] Refill(s) Magnesium Magnesium, Active [facility] one tablet, 2018 [facility] PO, Daily, Refill(s) 0 Ferrochel Ferrochel, Active [facility] one tablet, 2018 [facility] PO, Daily, Refill(s) 0 Adrenevive Adrenevive, 2 Active [facility] capsules, PO, 2018 [facility] Daily, Refill(s) 0 K-force K-force, one Active [facility] capsule, PO, 2018 [facility] Daily, Refill(s) 0 Omeprazole 40 MG 40 mg=1 cap, No Longer [facility] Enteric Coated PO, Daily, # Active 2018 [facility] Capsule 30 cap, 0 [Prilosec] Refill(s) Bismuth TWICE DAILY ORAL Active [facility] St. Subsalicylate 2018 [facility] Docusate Sodium DAILY ORAL Active [facility] St. 2018 [facility] Doxycycline TWICE DAILY ORAL Active [facility] St. Hyclate 2018 [facility] [place] Metronidazole TWICE DAILY ORAL Active [facility] . 2018 [facility] [place] Psyllium TWICE DAILY ORAL Active [facility] St. 2018 [facility] [place] Polyethylene TWICE DAILY ORAL Active [facility]. Glycol 3350 2017 [facility] Estrogens,Conj EVERY THIRD VAGINAL Active [facility] St. Cream DAY 2018 [facility] [place] Pantoprazole TWICE DAILY ORAL Active [facility] St. 2018 [facility] [place] Allergies, Adverse Reactions, Alerts Substance Category Reaction Severity Reaction Status Date Comments Source type Reported No Known Unknown Allergy to Active [facility] Drug Substance 9 [facility] All[facility]ies [place] No Known Assertion Drug [facility] Medication allergy [facility] Allergies Immunizations No Data Provided for This Section Results Order Name Results Value Reference Date Interpretation Comments Source Range Laboratory Prothrombin 11.1 9.5 - 12.5 01/14 [facility] [address] Studies Time /2018 [facility] [place] Laboratory INR 0.94 01/14 [facility] [address] Studies International /2018 [facility] Normalized [place] Ratio Laboratory Activated 29.6 24.3 - 01/14 [facility] [address] Studies Partial 36.9 [facility] Thromboplast [place] Time Laboratory Sodium Level 142 136 - 145 01/14 [facility]. Studies [facility] [place] Laboratory Potassium 4.2 3.5 - 5.1 01/14 [facility]. Studies Level /2018 [facility] [place] Laboratory Glucose Level 90 74 - 106 01/14 [facility] [address] Studies /2018 [facility] [place] Laboratory Estimat 69 90 01/14 [facility]. Studies Glomerular /2018 [facility] Filtration [place] Rate Laboratory Creatinine 0.85 0.55 - 1.3 01/14 [facility]. Studies [facility] [place] Laboratory Chloride Level 108 98 - 107 01/14 [facility]. Studies [facility] [place] Laboratory Carbon Dioxide 30 21 - 32 01/14 [facility]. Studies Level /2018 [facility] [place] Laboratory Calcium Level 8.8 8.5 - 10.1 01/14 [facility]. Studies [facility] [place] Laboratory Blood Urea 12 7 - 18 01/14 [facility]. Studies Nitrogen /2018 [facility] [place] Laboratory White Blood 5.5 4.3 - 10.9 01/14 [facility]. Studies Count /2018 [facility] [place] Laboratory Red Cell 14.7 12.1 - 01/14 [facility]. Studies Distribution 15.2 [facility] Width [place] Laboratory Red Blood 4.48 3.86 - 01/14 [facility]. Studies Count 4.86 [facility] [place] Laboratory Platelet Count 249 152 - 406 01/14 [facility]. Studies /2018 [facility] [place] Laboratory Neutrophils % 52.9 41.7 - 07 [facility] [address] Studies 73.7 /2019 [facility] [place] Laboratory Monocytes % 6.9 3.3 - 12.3 01/14 [facility]. Studies [facility] [place] Laboratory Mean Platelet 8.8 7.6 - 11.3 01/14 [facility]. Studies Volume /2018 [facility] [place] Laboratory Mean 88.4 80 - 100 01/14 [facility]. Studies Corpuscular /2018 [facility] Volume [place] Laboratory Mean 32.8 32.0 - [address] [facility] [address] Studies Corpuscular 36.0 /2018 [facility] Hemoglobin [place] Concent Laboratory Mean 29.0 27.0 - 01/14 [facility] [address] Studies Corpuscular 35.0 /2018 [facility] Hemoglobin [place] Laboratory Lymphocytes % 32.3 15.3 - 01/14 [facility] St[facility] Studies 44.8 /2018 [facility] [place] Laboratory Hemoglobin 13.0 12.0 - 01/14 [facility] [address] Studies 15.0 /2018 [facility] [place] Laboratory Hematocrit 39.6 36.0 - 01/14 [facility] [address] Studies 45.0 /2018 [facility] [place] Laboratory Eosinophils % 6.8 0 - 4.4 01/14 [facility] [address] Studies /2018 [facility] [place] Laboratory Basophils % 1.1 0 - 1.3 01/14 [facility] [address] Studies [facility] [place] Laboratory Absolute 2.9 1.8 - 8.0 01/14 [facility] [address] Studies Neutrophil /2018 [facility] [place] Laboratory Absolute 0.4 0.1 - 1.3 01/14 [facility] [address] Studies Monocytes /2018 [facility] (CBC) [place] Laboratory Absolute 1.8 0.7 - 4.9 01/14 [facility] [address] Studies Lymphocytes /2018 [facility] (CBC) [place] Laboratory Absolute 0.4 0 - 0.5 01/14 [facility] [address] Studies Eosinophils /2018 [facility] (CBC) [place] Laboratory Absolute 0.1 0 - 0.5 01/14 [facility] [address] Studies Basophils [facility] (CBC) [place] CHEM PANEL eGFR 88 10/26 Result Comment: The [place] eGFR is calculated using the CKD-EPI formula. In most young, healthy individuals the eGFR will be >90 mL/min/1.73m2 . The eGFR declines with age. An eGFR of 60-89 may be normal in some populations, particularly the elderly, for whom the CKD-EPI formula has not been extensively validated. Use of the eGFR is not recommended in the following populations:< br/>
Shelby viduals with unstable creatinine concentration s, including patients and those with serious co-morbid conditions.<b r/>
Patie nts with extremes in muscle mass or diet.

The data above are obtained from the National Kidney Disease Education Program (NKDEP) which additionally recommends that when the eGFR is used in patients with extremes of body mass index for purposes of drug dosing, the eGFR should be multiplied by the estimated BMI. CHEM PANEL AST 17 0 - 37 04 [facility] CHEM PANEL ALT 25 0 - 65 10/26 [facility] CHEM PANEL Creatinine Lvl 0.76 0.50 - 04 [facility] 1.40 /2018 [facility] CHEM PANEL Total Protein 7.4 6.4 - 8.4 10/26 [facility] CHEM PANEL Bili Total 0.5 0.2 - 1.3 10/26 [facility] CHEM PANEL Sodium Lvl 142 135 - 145 10/26 [facility] CHEM PANEL Chloride Lvl 107 95 - 109 10/26 [facility] CHEM PANEL Potassium Lvl 4.7 3.5 - 5.1 10/26 [facility] CHEM PANEL Alk Phos 99 39 - 136 10/26 [facility] CHEM PANEL Albumin Lvl 3.8 3.5 - 5.0 10/26 [facility] CHEM PANEL Calcium Lvl 9.2 8.5 - 10.5 10/26 [facility] CHEM PANEL Glucose Lvl 90 70 - 99 10/26 [facility] CHEM PANEL BUN 13 7 - 22 10/26 [facility] CHEM PANEL CO2 28 24 - 32 10/26 [facility] CHEM PANEL B/C Ratio 17 6 - 25 10/26 [facility] CHEM PANEL A/G Ratio 1.1 0.7 - 1.6 10/26 [facility] CHEM PANEL Globulin 3.6 2.7 - 4.2 10/26 [facility] CHEM PANEL AGAP 11.7 10.0 - 04 [facility] 20.0 [facility] CHEM PANEL VITAMIN B1 74.5 66.5 - 10/26 Result [facility] (THIAMINE) 200.0 /2019 Comment: This [facility] WHOLE BLOOD test was developed and its performance characteristi cs
determ ined by [facility]. It has not been cleared or
approv ed by the Food and Drug Administratio n.
Perfor med At: [facility] [place]
[address] [place], [place] [id number]<br/ >Adams Cannon MD Ph:[phone] HEMATOLOGY MCHC 33.3 32.0 - 10/26 [facility] 36.0 /2019 [facility] HEMATOLOGY RDW 14.7 11.5 - 10/26 [facility] 14.5 [facility] HEMATOLOGY MCH 29.1 27.0 - 10/26 [facility] 31.0 [facility] HEMATOLOGY Platelet 263 133 - 450 10/26 [facility] HEMATOLOGY MPV 8.5 7.4 - 10.4 10/26 [facility] HEMATOLOGY Hgb 13.2 12.0 - 10/26 [facility] 16.0 [facility] HEMATOLOGY Hct 39.8 36.0 - 10/26 [facility] 48.0 /2018 [facility] HEMATOLOGY MCV 87.5 80.0 - 10/26 [facility] 98.0 [facility] HEMATOLOGY WBC 5.3 3.7 - 10.4 10/26 [facility] RBC 4.55 4.20 - 10/26 [facility] 5.40 /2018 [facility] HEMATOLOGY Basophils # 0.1 0.0 - 0.2 10/26 [facility] HEMATOLOGY Eosinophils # 0.5 0.0 - 0.5 10/26 [facility] Monocytes # 0.4 0.0 - 0.8 10/26 [facility] Monocytes 8.4 2.0 - 12.0 10/26 [facility] Lymphocytes 30.7 20.0 - 10/26 [facility] 40.0 [facility] HEMATOLOGY Segs 50.9 45.0 - 10/26 [facility] 75.0 /2019 [facility] Basophils 1.2 0.0 - 1.0 10/26 [facility] Lymphocytes # 1.6 1.0 - 5.5 10/26 [facility] Neutrophils # 2.7 1.5 - 8.1 10/26 [facility] Eosinophils 8.8 0.0 - 4.0 10/26 [facility] [address] [place] [address] Pathology Reports No Data Provided for This Section Diagnostic Reports Report Value Date Source Chest 2 views DX HISTORY: Coughing 10/26/2018 [facility] TECHNIQUE: PA and lateral views of the chest. COMPARISON: None available. FINDINGS: The lungs are well-inflated and clear. The aorta is partially calcified. The cardiomediastinal silhouette and pulmonary vasculature are within normal limits. 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 Minimal thoracic spondylosis is present. IMPRESSION: No radiographic evidence of acute cardiopulmonary disease. [id number] Consultation Notes No Data Provided for This Section Discharge Summaries No Data Provided for This Section History and Physicals No Data Provided for This Section Vital Signs Vital Sign Value Date Comments Source Temperature Oral (F) 97.2 F 01/15/2019 [facility] Heart Rate 72 01/15/[address] [facility] Respitory Rate 16 01/15/[address] [facility] Systolic (mm Hg) 110 01/15/[address] [facility] [place] Diastolic (mm Hg) 72 01/15/[address] [facility] Height 64 01/14/[address] [facility] [place] Weight 170.00 01/14/2019 [facility] [address] [place] Systolic (mm Hg) 119 11/14/2018 [facility] Diastolic (mm Hg) 84 11/14/2018 [facility] Respitory Rate 16 11/14/2018 [facility] Respitory Rate 13 11/14/2018 [facility] Systolic (mm Hg) 117 11/14/2018 [facility] Diastolic (mm Hg) 82 11/14/2018 [facility] Systolic (mm Hg) 121 11/14/2018 [facility] Diastolic (mm Hg) 82 11/14/2018 [facility] Respitory Rate 20 11/14/2018 [facility] BMI Calculated 29.14 11/14/2018 [facility] Weight 77.004 11/14/2018 [facility] Height 162.56 cm 11/14/2018 [facility] Height 162.56 cm 10/26/2018 [facility] BMI Calculated 29.93 10/26/2018 [facility] Weight 79.091 10/26/2018 [facility] Encounters Location Location Encounter Encounter Reason Attending ADM DC Status Source Details Type Number For Provider Date Date Visit Departed [id number] BOBBY 06/11 06/11 [facility] /2017 [facility] [id number] Rashi 11/14 11/14 [facility] /2018 [facility] [address] Departed [id number] 01/15 01/[address] [facility]2018 [facility] [place] [facility] [id number] Anthony 03/20 Active [facility] Procedures Procedure Code Date Perfomer Comments Source Chest Pa And Lat ([id number] 01/14/2019 [facility] [place]) [place] Appendectomy [id number] [facility] Breast augmentation [id number] [facility] Facelift operation [id number] [facility] Miscellaneous [id number] heart cath [facility] operations<sup>1</s 2016, neck [place] up> surgery 2014, back surgery 2017 Total hysterectomy [id number] [facility] Assessment and Plan No Data Provided for This Section Plan of Care Plan of Care Date Source No known plan of care. 01/15/2019 [facility] [place] No known plan of care. 01/15/[address] [facility] [address] Jorden Chowdhury Discharge Date 06/11/18 6:11am 06/11/2018 [facility] Instructions/Education Provided Sinusitis, Adult, [id number] Forms Provided Portal Welcome Letter Prescriptions See Medication Section Referrals LINA DRIVER M.D. Address: [address] [place] [phone] Additional Instructions/Education TAKE MEDS DIRECTED. Social History Social History Date Source No known social history. 01/15/[address] [facility] [place] Social History TypeResponse 10/26/2018 [facility] Smoking Status Former smoker; Type: Cigarettes; Exposure to Tobacco Smoke None; Cigarette Smoking Last 365 Days No; Reg Smoking Cessation Counseling Yes entered on: 10/26/18 Social History Problem Response Recorded Date/Time Onset Date Status [facility] No 06/11/2018 5:38am Not Applicable Not Applicable Smoking Status Start Date Stop Date Former smoker Family History No Data Provided for This Section Advance Directives Order Name Results Value Date Source Advance Directives Advance Directives Advance Directive Response Recorded Date/Time 01/15/2019 [facility] - Does Patient Have Living Will [place] No September 01, 2012 10:38pm Durable Power of Child Development Teacher for Health Care No September 01, 2012 10:38pm Advance Directives Advance Directives Directive Response Recorded Date/ Time 06/11/2018 [facility] Advance Directive on File [facility] No 06/11/18 5:38am Patient/Family Given Education Material R/T Directives? Y - 06/11/18...MK 06/11/18 5:51am Functional Status No Data Provided for This Section
[2019-03-17] MEDS ORDERED: DIAZEPAM 5 MG TABLET ONE (15:38)
[2019-03-17] MEDS ORDERED: FENTANYL CITR 100 MCG/2 ML ONE (15:39)
--- NOTE | 2019-03-17 15:40 | ER ---
Nurse's Notes [facility] Name: Armida Yan Age: 59 yrs Sex: Female : 1960 Arrival Date: 03/17/2019 Time: 15:01 Bed 12 Private MD: Diagnosis: Pain in right knee;Internal derangement of knee Presentation: 03/17 15:05 Presenting complaint: Patient states: A week ago I was bowling and felt something pop la1 in my right knee. Transition of care: patient was not received from another setting of care. Onset of symptoms was March 17, 2019. Risk Assessment: Do you want to hurt yourself or someone else? Patient reports no desire to harm self or others. Initial Sepsis Screen: Does the patient meet any 2 criteria? No. Patient's initial sepsis screen is negative. Does the patient have a suspected source of infection? No. Patient's initial sepsis screen is negative. Care prior to arrival: None. 15:05 Method Of Arrival: Ambulatory la1 15:05 Acuity: AKIN 4 la1 Historical: - Allergies: 15:06 No Known Allergies; la1 - PMHx: 15:06 Migraines; la1 - PSHx: 15:06 Hysterectomy; neck and back sx; Appendectomy; Tubal ligation; tummy tuck; breast la1 augmentation; Hernia repair; - Immunization history:: Adult Immunizations up to date. - Social history:: Smoking status: Patient/guardian denies using tobacco. - Ebola Screening: : No symptoms or risks identified at this time. Screenin:42 Abuse screen: Denies threats or abuse. Nutritional screening: No deficits noted. la1 Tuberculosis screening: No symptoms or risk factors identified. Fall Risk None identified. Assessment: 15:42 General: Appears in no apparent distress. Behavior is calm, cooperative. Pain: la1 Complains of pain in right knee. Neuro: Level of Consciousness is awake, alert, obeys commands. Cardiovascular: Capillary refill < 3 seconds Patient's skin is warm and dry. Respiratory: Airway is patent Respiratory effort is even, unlabored, Respiratory pattern is regular, symmetrical. Musculoskeletal: Circulation, motion, and sensation intact. Range of motion: limited in right knee. Vital Signs: 15:06 BP 125 / 81; Pulse 82; Resp 14; Temp 98.1; Pulse Ox 100% on R/A; Weight 72.57 kg; la1 Height 5 ft. 4 in. (162.56 cm); 15:06 Body Mass Index 27.46 (72.57 kg, 162.56 cm) la1 ED Course: 15:01 Patient arrived in ED. mr 15:06 Triage completed. la1 15:06 Arm band placed on left wrist. la1 15:13 Leanna Wilkins FNP-C [facility]. snw 15:14 Regino Eugene MD is Attending Physician. snw 15:27 Knee Right 3 View XRAY In Process Unspecified. EDMS 15:41 Contreras Hilton, RN is Primary Nurse. la1 15:42 Patient has correct armband on for positive identification. la1 15:59 No provider procedures requiring assistance completed. Patient did not have IV access la1 during this emergency room visit. Administered Medications: 15:41 Drug: fentaNYL (PF) 50 mcg {Note: RASS=0.} Route: IM; Site: right gluteus; la1 15:59 Follow up: Response: No adverse reaction; RASS: Alert and Calm (0) la1 15:41 Drug: Valium 5 mg Route: PO; la1 15:59 Follow up: Response: No adverse reaction la1 Outcome: 15:39 Discharge ordered by . snw 15:59 Discharged to home ambulatory. la1 15:59 Condition: stable 15:59 Discharge instructions given to patient, family, Instructed on discharge instructions, follow up and referral plans. medication usage, Demonstrated understanding of instructions, follow-up care, medications, Prescriptions given X 2. 15:59 Patient left the ED. la1 Signatures: Dispatcher [employer] EDKS Leanna Wilkins FNP-C FNP-Fiona Marline Duarte mr Contreras Hilton, RN RN la1
--- NOTE | 2019-03-17 15:41 | EDPHYS ---
Physician Documentation [facility] Name: rAmida Yan Age: 59 yrs Sex: Female : 1960 Arrival Date: 03/17/2019 Time: 15:01 Bed 12 Private MD: ED Physician Regino Eugene HPI: 03/17 15:34 This 59 yrs old Female presents to ER via Ambulatory with complaints of Knee snw Pain. 15:34 Onset: The symptoms/episode began/occurred suddenly, last week. hx of previous meniscal snw tear to right knee. The patient has not recently seen a physician. Historical: - Allergies: 15:06 No Known Allergies; la1 - PMHx: 15:06 Migraines; la1 - PSHx: 15:06 Hysterectomy; neck and back sx; Appendectomy; Tubal ligation; tummy tuck; breast la1 augmentation; Hernia repair; - Immunization history:: Adult Immunizations up to date. - Social history:: Smoking status: Patient/guardian denies using tobacco. - Ebola Screening: : No symptoms or risks identified at this time. ROS: 15:33 Constitutional: Negative for fever, chills, and weight loss, Eyes: Negative for injury, snw pain, redness, and discharge, ENT: Negative for injury, pain, and discharge, Neck: Negative for injury, pain, and swelling, Cardiovascular: Negative for chest pain, palpitations, and edema, Respiratory: Negative for shortness of breath, cough, wheezing, and pleuritic chest pain, Abdomen/GI: Negative for abdominal pain, nausea, vomiting, diarrhea, and constipation, Back: Negative for injury and pain, : Negative for injury, bleeding, discharge, and swelling, Skin: Negative for injury, rash, and discoloration, Neuro: Negative for headache, weakness, numbness, tingling, and seizure, Psych: Negative for depression, anxiety, suicide ideation, homicidal ideation, and hallucinations. 15:33 MS/extremity: Positive for injury or acute deformity, pain, feels like right knee locks and gives out intermittently. Pain radiates to ankle and hip. Exam: 15:32 Constitutional: This is a well developed, well nourished patient who is awake, alert, snw and in no acute distress. Head/Face: Normocephalic, atraumatic. Eyes: Pupils equal round and reactive to light, extra-ocular motions intact. Lids and lashes normal. Conjunctiva and sclera are non-icteric and not injected. Cornea within normal limits. Periorbital areas with no swelling, redness, or edema. ENT: Nares patent. No nasal discharge, no septal abnormalities noted. Tympanic membranes are normal and external auditory canals are clear. Oropharynx with no redness, swelling, or masses, exudates, or evidence of obstruction, uvula midline. Mucous membranes moist. Neck: Trachea midline, no thyromegaly or masses palpated, and no cervical lymphadenopathy. Supple, full range of motion without nuchal rigidity, or vertebral point tenderness. No Meningismus. Chest/axilla: Normal chest wall appearance and motion. Nontender with no deformity. No lesions are appreciated. Cardiovascular: Regular rate and rhythm with a normal S1 and S2. No gallops, murmurs, or rubs. Normal PMI, no JVD. No pulse deficits. Respiratory: Lungs have equal breath sounds bilaterally, clear to auscultation and percussion. No rales, rhonchi or wheezes noted. No increased work of breathing, no retractions or nasal flaring. Abdomen/GI: Soft, non-tender, with normal bowel sounds. No distension or tympany. No guarding or rebound. No evidence of tenderness throughout. Back: No spinal tenderness. No costovertebral tenderness. Full range of motion. Skin: Warm, dry with normal turgor. Normal color with no rashes, no lesions, and no evidence of cellulitis. Neuro: Awake and alert, GCS 15, oriented to person, place, time, and situation. Cranial nerves II-XII grossly intact. Motor strength 5/5 in all extremities. Sensory grossly intact. Cerebellar exam normal. Normal gait. Psych: Awake, alert, with orientation to person, place and time. Behavior, mood, and affect are within normal limits. 15:32 Musculoskeletal/extremity: Extremities: grossly normal except: noted in the right knee: pain, swelling, tenderness, ROM: no acute changes, Circulation is intact in all extremities. Sensation intact. Weight bearing: able to fully bear weight, feels like it gives out and locks at intervals. Vital Signs: 15:06 BP 125 / 81; Pulse 82; Resp 14; Temp 98.1; Pulse Ox 100% on R/A; Weight 72.57 kg; la1 Height 5 ft. 4 in. (162.56 cm); 15:06 Body Mass Index 27.46 (72.57 kg, 162.56 cm) la1 MDM: 15:14 Patient medically screened. snw 15:44 Data reviewed: vital signs, nurses notes. Data interpreted: Pulse oximetry: on room air snw is 100 %. Interpretation: normal. Counseling: I had a detailed discussion with the patient and/or guardian regarding: the historical points, exam findings, and any diagnostic results supporting the discharge/admit diagnosis, radiology results, the need for outpatient follow up, to return to the emergency department if symptoms worsen or persist or if there are any questions or concerns that arise at home. Special discussion: I have referred the patient to see his PCP for further evaluation of high blood pressure. Based on the history and exam findings, there is no indication for further emergent testing or inpatient evaluation. I discussed with the patient/guardian the need to see the orthopedic surgeon for further evaluation of the symptoms. I discussed with the patient/guardian the need to see the primary care provider for further evaluation of the symptoms. 03/17 15:07 Order name: Knee Right 3 View XRAY la1 03/17 15:30 Order name: Knee Immobilizer; Complete Time: 16:00 snw Administered Medications: 15:41 Drug: fentaNYL (PF) 50 mcg {Note: RASS=0.} Route: IM; Site: right gluteus; la1 15:59 Follow up: Response: No adverse reaction; RASS: Alert and Calm (0) la1 15:41 Drug: Valium 5 mg Route: PO; la1 15:59 Follow up: Response: No adverse reaction la1 Disposition: 03/18 09:23 Co-signature as Attending Physician, Regino Eugene MD I agree with the assessment and alia plan of care. Disposition: 03/17/19 15:39 Discharged to Home. Impression: Pain in right knee, Internal derangement of knee. - Condition is Stable. - Discharge Instructions: Joint Pain, How to Use a Knee Brace, Musculoskeletal Pain, Knee Pain, Cryotherapy, Heat Therapy. - Prescriptions for Tylenol- Codeine #3 300-30 mg Oral Tablet - take 2 tablets by ORAL route every 6 hours As needed; 12 tablet. orphenadrine citrate 100 mg Oral Tablet Sustained Release - take 1 tablet by ORAL route 2 times per day As needed; 20 tablet. - Medication Reconciliation Form, Thank You Letter, Antibiotic Education, Prescription Opioid Use form. - Follow up: Emergency Department; When: As needed; Reason: Worsening of condition. Follow up: Private Physician; When: As needed; Reason: Recheck today's complaints, Continuance of care, Re-evaluation by your physician. Signatures: Dispatcher [employer] EDRegino Brunson MD MD cha Therrien, Shelly, [employer]-C C[employer]-Csnw Contreras Hilton RN RN la1 Corrections: (The following items were deleted from the chart) 03/17 15:39 15:39 03/17/2019 15:39 Discharged to Home. Impression: Pain in right knee. Condition is snw Stable. Forms are Medication Reconciliation Form, Thank You Letter, Antibiotic Education, Prescription Opioid Use. Follow up: Emergency Department; When: As needed; Reason: Worsening of condition. Follow up: Private Physician; When: As needed; Reason: Recheck today's complaints, Continuance of care, Re-evaluation by your physician. snw 15:59 15:39 03/17/2019 15:39 Discharged to Home. Impression: Pain in right knee; Internal la1 derangement of knee. Condition is Stable. Forms are Medication Reconciliation Form, Thank You Letter, Antibiotic Education, Prescription Opioid Use. Follow up: Emergency Department; When: As needed; Reason: Worsening of condition. Follow up: Private Physician; When: As needed; Reason: Recheck today's complaints, Continuance of care, Re-evaluation by your physician. snw
[2019-03-17 16:27] VITALS: BP 125/81; TEMP 98.1; O2SAT 100
--- NOTE | 2019-03-17 16:45 | RAD REPORT ---
EXAM DESCRIPTION: RAD - Knee Right 3 View - 03/17/2019 3:26 pm CLINICAL HISTORY: Right knee pain status post injury FINDINGS: No dislocation. Borderline mild depression of the medial tibial plateau. Given that there does not appear to be joint effusion present this probably is not significant. However, a subtle fracture can have this appearan ce. If the patient has clinical symptoms to suggest a fracture, ligamentous or meniscal injury then M RI would be recommended
== END 2019-03-17 15:59 | disposition home or self-care (01) ==
LOC: ER 14:58
DX: M23.91 Unspecified internal derangement of right knee (principal)
CPT/HCPCS: 73562; 96372; 99283; J3010

== ENCOUNTER 2020-07-27 04:37 | Observation (INO) | payer BC ==
--- OUTSIDE RECORDS SUMMARY | 2020-07-27 04:40 | XMS REPORT | Continuity of Care Document ---
:1960 Author Organization [facility] [place] Information [employer] Care Team Providers Name Role Phone [facility] Information [employer] Unavailable Un available Problems Problem Status Onset Classification Date Comments Sourc e Date Reported K44.9,DIAPHRAGMATIC Active 10/10/19 HERNIA WITHOUT 19 [facility] Cervical Active Problem 05/25/2019 [facility] spondylosis Neuro (disorder) Gastroesophageal Active Problem 05/25/2019 [facility] reflux disease Neuro , (disorder) [facility] History of cervical Active Problem 05/25/2019 [facility] spine fusion Neuro (situation) Migraine with aura Active Problem 05/25/2019 [facility] (disorder) Neuro Sleep apnea Active Problem 05/25/2019 [facility] (finding) [facility] Thiamin deficiency Active Problem 05/25/2019 [facility] (disorder) Neuro Medications Medication Details Route Status Patient Ordering Order Source Instructions Provider Date 24 HR Divalproex 500 mg = 1 tab, Active 03/20/ [facility] Sodium 500 MG PO, Daily, # 30 2019 Ne uro Extended Release tab, 3 Tablet [Depakote] Refill(s), Pharmacy: [facility] #[id number] neostigmine Route: IV, Drug Inactive (ANES) form: INJ, 2018 [facility], Stop date: 11/14/18 12:00:00 CDT glycopyrrolate Route: IV, Drug Inactive (ANES) form: INJ, 2018 [facility] , Stop date: 11/14/18 12:00:00 CDT ketOROLAC (ANES) IV, ONCE Inactive 2018 [facility] ondansetron Route: IV, Drug Inactive (ANES) form: INJ, 2018 [facility] , Stop date: 11/14/18 11:57:00 CDT Ondansetron Notes: (Same Inactive as: Zofran) 2018 [facility] MEDICATION City WASTE Product Size: 4 mg Product Wasted: ___ mg Morphine Notes: (Same Inactive as:MORPhine 2019 [facility]drom[facility] Notes: Same as Inactive Dilaudid 2018 [facility] Flumazenil Notes: (Same Inactive as: Romazicon) 2018 [facility] Naloxone Notes: Same as Inactive Narcan 2018 [facility] Racepinephrine Notes: Inactive (racepinephrine 2018 [facility] *2.25% [facility] 0.5ml SOLN) (Same as:S2) Diphenhydramine Notes: (Same Inactive as: Benadryl) 2018 [facility] Albuterol 0.83 Notes: SEE RT Inactive MG/ML Inhalant DOCUMENTATION 2019 [facility] orial Solution (Same as: [facility] Proventil) Hydralazine Notes: (Same Inactive as: Apresoline) 2019 [facility] Push over 5 [facility] minutes rocuronium (ANES) Route: IV, Drug Inactive 11/14 form: INJ, 2018 [facility] date: 11/14/18 11:06:00 CDT midazolam (ANES) Route: IV, Drug Inactive form: SOLN, 2018 [facility] date: 11/14/18 11:01:00 CDT acetaminophen Route: IV, Drug Inactive 11/14/ M H (ANES) form: INJ, 2018 [facility] date: 11/14/18 11:01:00 CDT cefOXitin (ANES) Route: IV, Drug Inactive form: INJ, 2018 [facility] date: 11/14/18 10:56:00 CDT succinylcholine Route: IV, Drug Inactive MH (ANES) form: INJ, 2018 [facility] date: 11/14/18 10:56:00 CDT propofol (ANES) Route: IV, Drug Inactive form: INJ, 2018 [facility] date: 11/14/18 10:56:00 CDT lidocaine (ANES) Route: IV, Drug Inactive form: INJ, 2018 [facility] date: 11/14/18 10:56:00 CDT fentaNYL (ANES) Route: IV, Drug Inactive form: INJ, 2018 [facility] ONCE, Stop City date: 11/14/18 10:56:00 CDT Lactated Ringers Route: IV, Inactive Injection IV Total Volume: 2018 [facility] (ANES) 1000 mL 1,000, Start [facility] date: 11/14/18 10:12:00 CDT, Stop date: 11/14/18 11:12:00 CDT Reglan 10 mg, Route: Inactive IV, ONCE, 2018 [facility] Dosing Weight [facility] 77.004, kg, Start date: 11/14/18 9:36:00 CDT, Stop date: 11/14/18 9:36:00 CDT Pepcid 20 mg, Route: Inactive IV, ONCE, 2018 [facility] Dosing Weight [facility] 77.004, kg, Start date: 11/14/18 9:35:00 CDT, Stop date: 11/14/18 9:35:00 CDT heparin Notes: porcine Inactive heparin 2018 [facility] scopolamine Notes: "Remove Inactive old patch 2018 [facility] application of new patch" Change patch every 72 hours (Same as: Transderm-Scop) Mefoxin + Sodium Notes: (Same Inactive H Chloride 0.9% IV As: Mefoxin) 2018 [facility] 100 mL MEDICATION City WASTE Product Size: 2000 mg Product Wasted: ___ mg Estrol pellets Estrol pellets, Active M H 4 mg =, 2018 [facility] frequency [facility] unknown, Refill(s) 0 Testosterone 100 mg, Active frequency 2018 [facility] unknown, 0 [facility] Refill(s) multivitamin one tablet, PO, No Longer 04/12/ M H Daily, 0 Active 2018 [facility] Refill(s) [facility] Progesterone 150 mg, PO, Active Daily, 0 2018 [facility] Refill(s) [facility] Magnesium Magnesium, one Active tablet, PO, 2018 [facility] Daily, [facility] Refill(s) 0 Ferrochel Ferrochel, one Active tablet, PO, 2018 [facility] Daily, [facility] Refill(s) 0 Adrenevive Adrenevive, 2 Active capsules, PO, 2018 [facility] Daily, City Refill(s) 0 K-force K-force, one Active capsule, PO, 2019 [facility] Daily, City Refill(s) 0 Omeprazole 40 MG 40 mg = 1 cap, No Longer Enteric Coated PO, Daily, # 30 Active [facility] C[facility] cap, 0 [place] [Prilosec] Refill(s) Allergies, Adverse Reactions, Alerts Substance Category Reaction Severity Reaction Status Date Comments S ource type Reported No Known Assertion Drug Misch er Medication allergy Neuro Allergies Immunizations No Data Provided for This Section Results Order Name Results Value Reference Date Interpretation Comments Rebecca rce Range CHEM PANEL eGFR 88 10/26 Result Comment: The [facility] eGFR is City calculated using the CKD-EPI formula. In most [...] CHEM PANEL AST 17 0 - 37 10/26 [facility] CHEM PANEL ALT 25 0 - 65 10/26 [facility] CHEM PANEL Creatinine 0.76 0.50 - 1.40 10/26 MH Lvl [facility] CHEM PANEL Total Protein 7.4 6.4 - 8.4 10/26 [facility] CHEM PANEL Bili Total 0.5 0.2 - 1.3 10/26 [facility] CHEM PANEL Sodium Lvl 142 135 - 145 10/26 [facility] CHEM PANEL Chloride Lvl 107 95 - 109 10/26 [facility] CHEM PANEL Potassium Lvl 4.7 3.5 - 5.1 10/26 [facility] CHEM PANEL Alk Phos 99 39 - 136 10/26 [facility] CHEM PANEL Albumin Lvl 3.8 3.5 - 5.0 10/26 [facility] CHEM PANEL Calcium Lvl 9.2 8.5 - 10.5 10/26 [facility] CHEM PANEL Glucose Lvl 90 70 - 99 10/26 [facility] CHEM PANEL BUN 13 7 - 22 10/26 [facility] CHEM PANEL CO2 28 24 - 32 10/26 [facility] CHEM PANEL B/C Ratio 17 6 - 25 10/26 [facility] CHEM PANEL A/G Ratio 1.1 0.7 - 1.6 10/26 [facility] CHEM PANEL Globulin 3.6 2.7 - 4.2 10/26 [facility] CHEM PANEL AGAP 11.7 10.0 - 20.0 10/26 [facility] CHEM PANEL VITAMIN B1 74.5 66.5 - 10/26 Result (THIAMINE) 200.0 /2019 Comment: [facility] was City developed and its performance characteristi cs
determ ined by [facility]. It has not been cleared or
approv ed by the Food and Drug Administratio n.
Perfor med At: [facility] [place]
[address], [place] [id number]<br/ >Adams Cannon MD Ph:[phone] HEMATOLOGY MCHC 33.3 32.0 - 36.0 10/26 [facility] HEMATOLOGY RDW 14.7 11.5 - 14.5 10/26 [facility] HEMATOLOGY MCH 29.1 27.0 - 31.0 10/26 [facility] HEMATOLOGY Platelet 263 133 - 450 10/26 [facility] HEMATOLOGY MPV 8.5 7.4 - 10.4 10/26 [facility] HEMATOLOGY Hgb 13.2 12.0 - 16.0 10/26 [facility] HEMATOLOGY Hct 39.8 36.0 - 48.0 10/26 [facility] HEMATOLOGY MCV 87.5 80.0 - 98.0 10/26 [facility] HEMATOLOGY WBC 5.3 3.7 - 10.4 10/26 [facility] HEMATOLOGY RBC 4.55 4.20 - 5.40 10/26 [facility] HEMATOLOGY Basophils # 0.1 0.0 - 0.2 10/26 [facility] HEMATOLOGY Eosinophils # 0.5 0.0 - 0.5 10/26 [facility] HEMATOLOGY Monocytes # 0.4 0.0 - 0.8 10/26 [facility] HEMATOLOGY Monocytes 8.4 2.0 - 12.0 10/26 [facility] HEMATOLOGY Lymphocytes 30.7 20.0 - 40.0 10/26 [facility] HEMATOLOGY Segs 50.9 45.0 - 75.0 10/26 [facility] HEMATOLOGY Basophils 1.2 0.0 - 1.0 10/26 [facility] HEMATOLOGY Lymphocytes # 1.6 1.0 - 5.5 10/26 [facility] HEMATOLOGY Neutrophils # 2.7 1.5 - 8.1 10/26 [facility] HEMATOLOGY Eosinophils 8.8 0.0 - 4.0 10/26 [facility] Pathology Reports No Data Provided for This Section Diagnostic Reports Report Value Date Source Chest 2 views DX HISTORY: Coughing 10/26/2018 [facility] TECHNIQUE: PA and lateral views of the chest. COMPARISON: None available. FINDINGS: The lungs are well -inflated and clear. The aorta is partially calcified. The cardiomediastinal silhouette and pulmonary vasculature are within normal limits. 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 Minimal thoracic spondylosis is pres ent. IMPRESSION: No radiographic evidence of acute ca rdiopulmonary disease. [id number] Consultation Notes No Data Provided for This Section Discharge Summaries No Data Provided for This Section History and Physicals No Data Provided for This Section Vital Signs Vital Sign Value Date Comments Source Systolic (mm Hg) 148 04/11/2019 [facility] Kirsten ro Diastolic (mm Hg) 86 04/11/2019 [facility] Ne uro Heart Rate 68 04/11/2019 [facility] Neuro Respitory Rate 16 04/11/2019 [facility] Neuro Height 160.02 cm 04/11/2019 [facility] Neuro Weight 74.545 04/11/2019 [facility] Neuro BMI Calculated 29.11 04/11/2019 [facility] Neuro Systolic (mm Hg) 131 03/20/2019 [facility] Kirsten ro Diastolic (mm Hg) 85 03/20/2019 [facility] Ne uro Heart Rate 67 03/20/2019 [facility] Neuro Respitory Rate 16 03/20/2019 [facility] Neuro Height 162.56 cm 03/20/2019 [facility] Neuro Weight 72.727 03/20/2019 [facility] Neuro BMI Calculated 27.52 03/20/2019 [facility] Neuro Systolic (mm Hg) 119 11/14/2018 [facility] Diastolic (mm Hg) 84 11/14/2018 [facility] City Respitory Rate 16 11/14/[address] [facility] C ity Respitory Rate 13 11/14/[address] [facility]y Systolic (mm Hg) 117 11/14/2018 [facility] Diastolic (mm Hg) 82 11/14/2018 [facility] Systolic (mm Hg) 121 11/14/2018 [facility] Diastolic (mm Hg) 82 11/14/2018 [facility] Respitory Rate 20 11/14/[address] [facility]y BMI Calculated 29.14 11/14/[address] [facility] C ity Weight 77.004 11/14/[address] [facility] y Height 162.56 cm 11/14/[address] [facility] y Height 162.56 cm 10/26/[address] [facility] y BMI Calculated 29.93 10/26/[address] [facility] C ity Weight 79.091 10/26/[address] [facility] Cit y Encounters Location Location Encounter Encounter Reason Attending ADM DC Stat us Source Details Type Number For Provider Date Date Visit [facility] [id number] Rashi 11/14 11/14 [place] /2018 [facility] Outpatient [id number] Anthony 03/20 [facility] [place] [facility] Outpatient [id number] Anthony 03/20 03/21 [facility] Neurology [facility] /2018 [facility] [place] [facility] Outside [id number] 03/27 03/29 [facility] Neurology Medical /2018 [facility] [place] [facility] Outpatient [id number] Anthony 04/11 [facility] [place] [facility] Outpatient [id number] Anthony 04/11 04/12 [facility] Neurology [facility] [place] Outpatient [id number] Anthony 05/23 [facility] [place] [facility] Ambulatory [id number] Jorge 05/23 05/23 [facility] Neurology Pre-Reg [place] /2018 [facility] [place] Procedures Procedure Code Date Perfomer Comments Source Appendectomy [id number] [facility] Neuro[facility] [place] [id number] [facility] Facelift operation [id number] [facility] r Neuro,[facility] Miscellaneous [id number] heart cath [facility] operations<sup>1</s 2017, neck Neuro , up> surgery 2014, [facility] back surgery 2017 Total hysterectomy [id number] [facility] r Neuro,[facility] Assessment and Plan No Data Provided for This Section Plan of Care No Data Provided for This Section Social History Social History Date Source Social History TypeResponse 03/20/2019 [facility] Neur o Employment/School Status: Employed.1 Smoking Status Former smoker; Type: Cigarettes; Exposur e to Tobacco Smoke None; Cigarette Smoking Last 365 Days No; Reg Smoking Cessation Counseling Yes entered on: 04/11/19 1Can release Medical information Nyla Rodriguez-Spouse Social History TypeResponse 10/26/2018 [facility] Smoking Status Former smoker; Type: Cigarettes; Exposur e to Tobacco Smoke None; Cigarette Smoking Last 365 Days No; Reg Smoking Cessation Counseling Yes entered on: 10/26/18 Family History No Data Provided for This Section Advance Directives No Data Provided for This Section Functional Status No Data Provided for This Section
--- OUTSIDE RECORDS SUMMARY | 2020-07-27 04:40 | XMS REPORT | Continuity of Care Document ---
:[address] [facility] [place], [place] t Address [address] [place] [address] Care Team Providers Name Role Phone Blanco Cisneros Attending Clinician Mark Franklin Attending Clinician Problems Condition Condition Condition Status Onset Resolution Last Treating Co mments Source Name Details Category Date Date Treatment Clinician Date K44.9,DIAP Diagnosis Active 2018-11-14 Memoria HRAGMATIC 3-26 07:40:00 l HERNIA 00:00: [place] WITHOUT K44.9,DIAP 00 OBSTR HRAGMATIC HERNIA WITHOUT OBSTR Active 10/09/2018 [facility] Cervical Problem Active 2019-05-25 Mem oria spondylosi 22:52:02 l s Cervical Vicente n (disorder) spondylosi s (disorder) [facility] Active 2019-05-25 M emoria hageal 22:52:02 l reflux Ellis disease Gastroesop (disorder) hageal reflux disease (disorder) Active Problem 05/25/2019 [facility] History of Problem Active 2019-05-25 M emoria cervical 22:52:02 l spine History [place] fusion of (situation cervical ) spine fusion (situation ) Active Problem 05/25/2019 [facility] Migraine Problem Active 2019-05-25 Mem oria with aura 22:52:02 l (disorder) Migraine He rmann with aura (disorder) Active Problem 05/25/2019 [facility] Sleep Problem Active 2019-05-25 Memor ia apnea 22:52:02 l (finding) Sleep Vicente n apnea (finding) Active Problem 05/25/2019 [facility] Thiamin Problem Active 2019-05-25 Daren zain deficiency 22:52:02 l (disorder) Thiamin Her saunders deficiency (disorder) Active Problem 05/25/2019 [facility] Allergies, Adverse Reactions, Alerts Allergy Allergy Status Severity Reaction(s) Onset Inactive Treating Comm ents Source Name Type Date Date Clinician No Known No Known Active Memori a Medicati Medicati l on on Ellis Allergie Allergie s s Social History Social Habit Start Date Stop Date Quantity Comments Source Social History 2019-03-20 2019-03-20 [facility] mayte 17:10:07 17:10:07 Smoking Status Start Date Stop Date Source Social History 2018-10-26 16:15:40 2018-10-26 16:15:40 [facility] Medications Ordered Filled Start Stop Current Ordering Indication Dosage Frequency Signature Comments Components Source Medication Medication Date Date Medication? Clinician (SIG) Name Name 24 HR Yes 500 mg = 1 Memori a Divalproex 9-04 tab, PO, l Sodium 500 17:15: Daily, # Her saunders MG Extended 00 30 tab, 3 Release Refill(s), Tablet Pharmacy: [[facility]] [id number] neostigmine No Route: IV, Memoria (ANES) 11-14 Drug form: l 17:00: INJ, ONCE, Stop date: 11/14/18 12:00:00 CDT glycopyrrol No Route: IV, Memoria ate (ANES) 11-14 Drug form: l 17:00: INJ, ONCE, Stop date: 11/14/18 12:00:00 CDT ketOROLAC 2018- No IV, ONCE Daren zain (ANES) 11-14 l 16:57: ondansetron No Route: IV, Memoria (ANES) 11-14 Drug form: l 16:57: INJ, ONCE, Stop date: 11/14/18 11:57:00 CDT Ondansetron No Notes: Daren zain - (Same as: l 16:53: Zofran) MEDICATION WASTE Product Size: 4 mg Product Wasted: ___ mg Morphine No Notes: Memoria 11-14 (Same l 16:53: as:MORPhin e Sulfate) Hydromorpho No Notes: Daren zain ne 11-14 Same as l 16:53: Dilaudid Flumazenil No Notes: Memor ia 11-14 (Same as: l 16:53: Romazicon) Naloxone No Notes: Memoria 11-14 Same as l 16:53: Narcan Racepinephr No Notes: Daren zain ine 11-14 (racepinep l 16:53: hrine *2.25% inh 0.5ml SOLN) (Same as:S2) Diphenhydra No Notes: Daren zain mine 11-14 (Same as: l 16:53: Benadryl) Albuterol No Notes: SEE Me moria 0.83 MG/ML 11-14 RT l Inhalant 16:53: DOCUMENTAT Her saunders Solution 00 ION (Same as: Proventil) Hydralazine No Notes: Daren zain 11-14 (Same as: l 16:53: Apresoline ) Push over 5 minutes rocuronium No Route: IV, M emoria (ANES) 11-14 Drug form: l 16:06: INJ, ONCE, Ellis Stop date: 11/14/18 11:06:00 CDT midazolam No Route: IV, Me moria (ANES) 11-14 Drug form: l 16:01: SOLN, Ellis 00 ONCE, Stop date: 11/14/18 11:01:00 CDT acetaminoph No Route: IV, Memoria en (ANES) 11-14 Drug form: l 16:01: INJ, ONCE, [place] Stop date: 11/14/18 11:01:00 CDT cefOXitin 2019-0 No Route: IV, Me moria (ANES) - Drug form: l 15:56: INJ, ONCE, Stop date: 11/14/18 10:56:00 CDT succinylcho 2018-0 No Route: IV, Memoria line (ANES) - Drug form: l 15:56: INJ, ONCE, Stop date: 11/14/18 10:56:00 CDT propofol 2019-0 No Route: IV, Mem oria (ANES) - Drug form: l 15:56: INJ, ONCE, Stop date: 11/14/18 10:56:00 CDT lidocaine 2018-0 No Route: IV, Me moria (ANES) - Drug form: l 15:56: INJ, ONCE, Stop date: 11/14/18 10:56:00 CDT fentaNYL 2018-0 No Route: IV, Mem oria (ANES) - Drug form: l 15:56: INJ, ONCE, Stop date: 11/14/18 10:56:00 CDT Lactated 2018-0 No Route: IV, Mem oria Ringers 11-14 Total l Injection 15:12: Volume: Belle nn IV (ANES) 00 1,000, 1000 mL Start date: 11/14/18 10:12:00 CDT, Stop date: 11/14/18 11:12:00 CDT Reglan 0 No 10 mg, Memoria 11-14 Route: IV, l 14:36: ONCE, Dosing Weight 77.004, kg, Start date: 11/14/18 9:36:00 CDT, Stop date: 11/14/18 9:36:00 CDT Pepcid 2018-0 No 20 mg, Memoria - Route: IV, l 14:35: ONCE, Dosing Weight 77.004, kg, Start date: 11/14/18 9:35:00 CDT, Stop date: 11/14/18 9:35:00 CDT heparin 2018-0 No Notes: Memoria 11-14 porcine l 11:00: heparin scopolamine 2018-0 No Notes: Daren zain 11-14 "Remove l 11:00: old patch Ellis 00 before applicatio n of new patch" Change patch every 72 hours (Same as: Transderm- Scop) Mefoxin + 2019- No Notes: Memori a Sodium 5-01 (Same As: l Chloride 11:00: Mefoxin) Belle nn 0.9% IV 100 00 mL MEDICATION WASTE Product Size: 2000 mg Product Wasted: ___ mg Estrol 2019- Yes Estrol Memoria pellets 4-12 pellets, 4 l 16:22: mg =, [place] 00 frequency unknown, Refill(s) 0 Testosteron 2018- Yes 100 mg, Mem oria e 4-12 frequency l 16:21: unknown, 0 Ellis 00 Refill(s) multivitami 2018- No one Memori a n 4-12 tablet, l 16:20: PO, Daily, Elils 00 0 Refill(s) Progesteron Yes 150 mg, Mem oria e 4-12 PO, Daily, l 16:20: 0 Ellis 00 Refill(s) Magnesium 2018- Yes Magnesium, Me moria 4-12 one l 16:19: tablet, Ellis 00 PO, Daily, Refill(s) 0 Ferrochel 2018- Yes Ferrochel, Me moria 4-12 one l 16:18: tablet, [place] 00 PO, Daily, Refill(s) 0 Adrenevive 2018-0 Yes Adrenevive M emoria 4-12 , 2 l 16:18: capsules, [place] 00 PO, Daily, Refill(s) 0 K-force 2018- Yes K-force, Memori a 4-12 one l 16:17: capsule, [place] 00 PO, Daily, Refill(s) 0 Omeprazole 2018- No 40 mg = 1 Me moria 40 MG 4-12 cap, PO, l Enteric 16:17: Daily, # Vicente n Coated 00 30 cap, 0 Capsule Refill(s) [Prilosec] Vital Signs Vital Name Observation Time Observation Value Comments Source Systolic (mm Hg) 2019-04-11 15:03:00 Daren Corral Diastolic (mm Hg) 2019-04-11 15:03:00 [facility] sedrick Corral Heart Rate 2019-04-11 15:03:00 [facility] Ellis Respitory Rate 2019-04-11 15:03:00 Memori al [place] Height 2019-04-11 15:03:00 160.02 cm [facility] Weight 2019-04-11 15:03:00 [facility] [place] BMI Calculated 2019-04-11 15:03:00 Memori al Ellis Systolic (mm Hg) 2019-03-20 16:49:00 Daren rial Ellis Diastolic (mm Hg) 2019-03-20 16:49:00 Mem orial [place] Heart Rate 2019-03-20 16:49:00 [facility] Respitory Rate 2019-03-20 16:49:00 Memori al [place] Height 2019-03-20 16:49:00 162.56 cm [facility] Weight 2019-03-20 16:49:00 [facility] BMI Calculated 2019-03-20 16:49:00 Memori al Ellis Systolic (mm Hg) 2018-11-14 18:00:00 Daren rial [place] Diastolic (mm Hg) 2018-11-14 18:00:00 Mem orial [place] Respitory Rate 2018-11-14 18:00:00 Memori al [place] Respitory Rate 2018-11-14 17:45:00 Memori al Ellis Systolic (mm Hg) 2018-11-14 17:45:00 Daren rial Ellis Diastolic (mm Hg) 2018-11-14 17:45:00 Mem orial Ellis Systolic (mm Hg) 2018-11-14 17:30:00 Daern rial Ellis Diastolic (mm Hg) 2018-11-14 17:30:00 Mem orial [place] Respitory Rate 2018-11-14 17:30:00 Memori al Ellis BMI Calculated 2018-11-14 13:09:00 Memori al [place] Weight 2018-11-14 13:09:00 [facility] [place] Height 2018-11-14 13:09:00 162.56 cm [facility] [place] Height 2018-10-26 15:57:00 162.56 cm [facility] [place] BMI Calculated 2018-10-26 15:57:00 Memori al [place] Weight 2018-10-26 15:57:00 [facility] Procedures Procedure Date / Time Performed Performing Clinician [facility] e Appendectomy [facility] Breast augmentation [facility] Facelift operation [facility] Miscellaneous [facility] operations<sup>1</sup> Total hysterectomy [facility] Encounters Start End Encounter Admission Attending Care Care Encounter Source Date/Time Date/Time Type Type Clinicians Facility Department ID 2019-05-23 2019-05-23 Outpatient JEAN PAUL CisnerosSCHER [id number] 14:15:00 14:15:00 Anthony 02 Blanco 2019-04-11 2019-04-11 Outpatient JEAN PAUL Cisneros [id number] 09:45:00 23:59:59 Anthony Blanco 2019-03-27 2019-03-28 Outpatient JEAN PAUL CAMACHOSCHER [id number] 15:12:44 23:59:59 2019-03-20 2019-03-20 Outpatient JEAN PAUL CisnerosSCHER [id number] 11:30:00 23:59:59 Anthony Blanco 2018-11-14 2018-11-14 [facility] [id number] 07:40:00 13:26:00 Rashi 00 Mark 2018-11-14 2018-11-14 Outpatient [facility] [id number] Memoria 07:40:00 07:40:00 l [place] Memoria l [facility] l Results Test Description Test Time Test Comments Results Result Comments Source CHEM PANEL 2018-10-26 88 [facility] Belle nn 16:20:00 CHEM PANEL 2018-10-26 17 [facility] nn 16:20:00 CHEM PANEL 2018-10-26 25 [facility] nn 16:20:00 CHEM PANEL 2018-10-26 0.76 [facility] nn 16:20:00 CHEM PANEL 2018-10-26 7.4 [facility] [place] nn 16:20:00 CHEM PANEL 2018-10-26 0.5 [facility] [place] nn 16:20:00 CHEM PANEL 2018-10-26 142 [facility] [place] nn 16:20:00 CHEM PANEL 2018-10-26 107 [facility] [place] nn 16:20:00 CHEM PANEL 2018-10-26 4.7 [facility] [place] nn 16:20:00 CHEM PANEL 2018-10-26 99 [facility] [place] nn 16:20:00 CHEM PANEL 2018-10-26 3.8 [facility] nn 16:20:00 CHEM PANEL 2018-10-26 9.2 [facility] nn 16:20:00 CHEM PANEL 2018-10-26 90 [facility] [place] nn 16:20:00 CHEM PANEL 2018-10-26 13 [facility] [place] nn 16:20:00 CHEM PANEL 2018-10-26 28 [facility] [place] nn 16:20:00 CHEM PANEL 2018-10-26 16:20:00 Test Item Value Reference Range Interpretation Comme nts B/C Ratio (test code = B/C Ratio) 17 1 6-25 [facility] [id number] 16:20:00 Test Item Value Reference Range Interpretation Comments A/G Ratio (test code = A/G Ratio) 1.1 1 0.7-1.6 [facility]annCHE[facility] [id number] 16:20:003.6[facility] HermannCHEM PANEL 2018-10-26 16:20:0011.7[facility] HermannCHEM [id number] 16:20:0074.5[facility] OsraqgvNFMSSSTQZP4484-33-93 16:20:0033.3[facility] TlbojsrSDQTOSQHOC1286-83-34 16:20:0014.7[facility] [id number] 16:20:00 Test Item Value Reference Range Interpretation Comments MCH (test code = MCH) 29.1 pg 27.0-31.0 Memorial [id number] 16:20:16901Rcdlmblj HermannHEMATOLOGY 2018-10-26 16:20:008.5[facility] OwctetpLWUIYUFGJC3493-61-06 16:20:0013.2[facility] MaxzlzsMAMZKYMSRY9310-17-15 16:20:0039.8[facility]orial [id number] 16:20:0087.5[facility] OaqxexvFSURZFAJHJ6912-12-01 16:20:005.3[facility] Ellis [id number] 16:20:004.55[facility] SqugirfAJIFDDYZLA6130-47-45 16:20:00 0.1[facility] AmmxoewPMAIETROEF6041-92-26 16:20:000.5[facility] HermannHEMATOLOGY 2018-10-26 16:20:000.4[facility] [id number] 16:20:008.4[facility] [id number] 16:20:0030.7[facility] CfvechfWVMEVHGFWL4423-88-77 16:20:0050.9[facility] [id number] 16:20:001.2[facility] [place] [id number] 16:20:001.6[facility] IpxvqxvVDSMPWJWMN9465-15-24 16:20:002.7 Memorial [id number] 16:20:008.8[facility] Ellis
[2020-07-27 05:21] LABS: Basophils % 1.2 % (0-1.3); Hematocrit 42.4 % (36.0-45.0); Lymphocytes % 30.6 % (15.3-44.8); MPV 9.1 fL (7.6-11.3); RBC Red Blood Cell Count 4.57 M/uL (3.86-4.86)
[2020-07-27 05:31] LABS: Protime INR 0.89
[2020-07-27] MEDS ORDERED: MORPHINE 2 MG/ML SYR ONE (05:31)
[2020-07-27] MEDS ORDERED: ASPIRIN 81 MG CHEWABLE TABLET ONE ×2 (05:31→06:49)
[2020-07-27] MEDS ORDERED: ONDANSETRON 4 MG/2 ML VIAL ONE (05:31)
[2020-07-27 05:34] LABS: ALT/SGPT 23 U/L (12-78); AST/SGOT 19 U/L (15-37); Albumin 3.7 g/dL (3.4-5.0); Alkaline Phosphatase 70 U/L (45-117); BUN Blood Urea Nitrogen 21 mg/dL (7-18); Bicarbonate 27 mmol/L (21-32); Bilirubin Direct < 0.1 mg/dL (0-0.2); Bilirubin Total 0.2 mg/dL (0.2-1.0); Glucose Level 99 mg/dL (74-106); Magnesium 2.4 mg/dL (1.8-2.4); NT PRO-BNP 21 pg/mL (<125); Potassium 4.1 mmol/L (3.5-5.1); Protein, Total 7.2 g/dL (6.4-8.2); Sodium Level 138 mmol/L (136-145); Troponin (Emerg Dept Use Only) < 0.02 ng/mL (0.0-0.045)
--- NOTE | 2020-07-27 06:02 | EDPHYS ---
Physician Documentation [facility] Name: Armida Yan Age: 60 yrs Sex: Female : 1960 Arrival Date: 07/27/2020 Time: 04:40 Bed 6 Private MD: ED Physician Chad Arredondo HPI: 07/27 05:09 This 60 yrs old Female presents to ER via Ambulatory with complaints of Chest mh7 Pain > 30 y/o. 05:09 The patient or guardian reports chest pain that is located primarily in the substernal mh7 area. Onset: today. The pain radiates to right neck. 05:10 Associated signs and symptoms: Pertinent negatives: abdominal pain, cough, diaphoresis, mh7 dizziness, headache, lower extremity pain, lower extremity swelling, lightheadedness, nausea, near syncope, palpitations, recent travel, shortness of breath, syncope, vomiting. The chest pain is described as a pressure. Duration: The patient or guardian reports multiple episodes, that are intermittent, that wax and wane, with no pattern. Modifying factors: The symptoms are alleviated by nothing. the symptoms are aggravated by nothing. Severity of pain: At its worst the pain was moderate today, in the emergency department the pain is unchanged. Historical: - Allergies: 04:57 No Known Allergies; ea - Home Meds: 04:57 None [Active]; ea - PMHx: 04:57 Migraines; ea - PSHx: 04:57 Appendectomy; Tubal ligation; neck, back, knee, cosmetic sx; ea - Immunization history:: Adult Immunizations up to date. - Social history:: Smoking status: Patient denies any tobacco usage or history of. Patient/guardian denies using alcohol, street drugs. ROS: 05:10 Constitutional: Negative for fever, chills, and weight loss, Eyes: Negative for injury, mh7 pain, redness, and discharge, ENT: Negative for injury, pain, and discharge, Respiratory: Negative for shortness of breath, cough, wheezing, and pleuritic chest pain, Abdomen/GI: Negative for abdominal pain, nausea, vomiting, diarrhea, and constipation, Back: Negative for injury and pain, : Negative for injury, bleeding, discharge, and swelling, MS/Extremity: Negative for injury and deformity, Skin: Negative for injury, rash, and discoloration, Neuro: Negative for headache, weakness, numbness, tingling, and seizure, Psych: Negative for depression, anxiety, suicide ideation, homicidal ideation, and hallucinations, Allergy/Immunology: Negative for hives, rash, and allergies, Endocrine: Negative for neck swelling, polydipsia, polyuria, polyphagia, and marked weight changes, Hematologic/Lymphatic: Negative for swollen nodes, abnormal bleeding, and unusual bruising. Exam: 05:10 Constitutional: This is a well developed, well nourished patient who is awake, alert, mh7 and in no acute distress. Head/Face: Normocephalic, atraumatic. Eyes: Pupils equal round and reactive to light, extra-ocular motions intact. Lids and lashes normal. Conjunctiva and sclera are non-icteric and not injected. Cornea within normal limits. Periorbital areas with no swelling, redness, or edema. Neck: Trachea midline, no thyromegaly or masses palpated, and no cervical lymphadenopathy. Supple, full range of motion without nuchal rigidity, or vertebral point tenderness. No Meningismus. Chest/axilla: Normal chest wall appearance and motion. Nontender with no deformity. No lesions are appreciated. Cardiovascular: Regular rate and rhythm with a normal S1 and S2. No gallops, murmurs, or rubs. Normal PMI, no JVD. No pulse deficits. Respiratory: Lungs have equal breath sounds bilaterally, clear to auscultation and percussion. No rales, rhonchi or wheezes noted. No increased work of breathing, no retractions or nasal flaring. Abdomen/GI: Soft, non-tender, with normal bowel sounds. No distension or tympany. No guarding or rebound. No evidence of tenderness throughout. Back: No spinal tenderness. No costovertebral tenderness. Full range of motion. Skin: Warm, dry with normal turgor. Normal color with no rashes, no lesions, and no evidence of cellulitis. MS/ Extremity: Pulses equal, no cyanosis. Neurovascular intact. Full, normal range of motion. Neuro: Awake and alert, GCS 15, oriented to person, place, time, and situation. Cranial nerves II-XII grossly intact. Motor strength 5/5 in all extremities. Sensory grossly intact. Cerebellar exam normal. Normal gait. Psych: Awake, alert, with orientation to person, place and time. Behavior, mood, and affect are within normal limits. Vital Signs: 04:55 Weight 73.94 kg; Height 5 ft. 4 in. (162.56 cm); ea 04:56 BP 147 / 84; Pulse 74; Resp 16; Temp 98.2; Pulse Ox 97% on R/A; rv 04:55 Body Mass Index 27.98 (73.94 kg, 162.56 cm) ea MDM: 05:59 Differential diagnosis: acute myocardial infarction, acute pericarditis, anxiety, mh7 coronary artery disease chest wall pain, congestive heart failure myocarditis, pericarditis, pneumonia. HEART Score: History: Moderately Suspicious (1), ECG: Normal (0), Age: > or = 65 years (2), Risk Factors: 1 or 2 risk factors (1), [+ Family HX] Troponin: < or = 1 x Normal Limit (0), Total Score = 4. The patient was given aspirin in the Emergency Department. Data reviewed: vital signs, nurses notes, lab test result(s), cardiac enzymes, CBC, electrolytes, urinalysis, EKG, radiologic studies, plain films. Data interpreted: Pulse oximetry: on room air is 97 %. Interpretation: normal. Counseling: I had a detailed discussion with the patient and/or guardian regarding: the historical points, exam findings, and any diagnostic results supporting the discharge/admit diagnosis, the presence of at least one elevated blood pressure reading (>120/80) during this emergency department visit, lab results, radiology results, the need for further work-up and treatment in the hospital. Response to treatment: the patient's symptoms have mildly improved after treatment. 06:01 Patient medically screened. 07/27 05:08 Order name: Basic Metabolic Panel; Complete Time: 05:42 07/27 05:08 Order name: CBC with Diff; Complete Time: 05:42 07/27 05:08 Order name: LFT's; Complete Time: 05:42 07/27 05:08 Order name: Magnesium; Complete Time: 05:42 07/27 05:08 Order name: NT PRO-BNP; Complete Time: 05:42 07/27 05:08 Order name: PT-INR; Complete Time: 05:51 mh7 01/11 05:08 Order name: Troponin (emerg Dept Use Only); Complete Time: 05:42 07/27 05:08 Order name: XRAY Chest (1 view) [facility] 07/27 05:08 Order name: EKG; Complete Time: 05:10 07/27 05:08 Order name: Cardiac monitoring; Complete Time: 05:13 07/27 05:08 Order name: EKG - Nurse/Tech; Complete Time: 05:13 07/27 05:08 Order name: IV Saline Lock; Complete Time: 05:14 [facility] 07/27 05:08 Order name: Labs collected and sent; Complete Time: 05:14 07/27 05:08 Order name: O2 Per Protocol; Complete Time: 05:14 [facility] 07/27 05:08 Order name: O2 Sat Monitoring; Complete Time: 05:14 [facility] Administered Medications: 05:08 CANCELLED (wrong order): Aspirin 325 mg PO once [facility] 05:20 Drug: Aspirin Chewable Tablet 324 mg Route: PO; rv 05:20 Drug: morphine 2 mg Route: IVP; Site: right forearm; rv 05:20 Drug: Zofran (Ondansetron) 4 mg Route: IVP; Site: right forearm; rv Disposition: 07/27/20 06:01 Hospitalization ordered by Eliseo Fulton for Observation. Preliminary diagnosis is Chest pain, unspecified. - Bed requested for Telemetry/MedSurg (observation). - Status is Observation. em - Condition is Stable. - Problem is new. - Symptoms have improved. Signatures: Dispatcher [employer] EDRaphael Ferraro RN Grace Díaz RN Vito Livingston ea RN Chad Hutchison MD MD 7 Corrections: (The following items were deleted from the chart) 05:08 05:08 Aspirin 325 mg PO once ordered. [place] [id number] 10:39 06:01 Hospitalization Ordered by Eliseo Fulton MD for Observation. Preliminary em diagnosis is Chest pain, unspecified. Bed requested for Telemetry/MedSurg (observation). Status is Observation. Condition is Stable. Problem is new. Symptoms have improved. [facility]
--- NOTE | 2020-07-27 06:02 | ER ---
Nurse's Notes [facility] Name: Armida Yan Age: 60 yrs Sex: Female : 1960 Arrival Date: 07/27/2020 Time: 04:40 Bed 6 Private MD: Diagnosis: Chest pain, unspecified Presentation: 07/27 04:55 Chief complaint: Patient states: I have had chest pain on and off for about a week, ea worse last night and it wont go away, pain radiates to my neck. Coronavirus screen: Client denies travel out of the [place] in the last 14 days. At this time, the client does not indicate any symptoms associated with coronavirus-19. Ebola Screen: No symptoms or risks identified at this time. Initial Sepsis Screen: Does the patient meet any 2 criteria? No. Patient's initial sepsis screen is negative. Does the patient have a suspected source of infection? No. Patient's initial sepsis screen is negative. Risk Assessment: Do you want to hurt yourself or someone else? Patient reports no desire to harm self or others. Onset of symptoms was July 27, 2020. 04:55 Method Of Arrival: Ambulatory ea 04:55 Acuity: AKIN 3 ea Historical: - Allergies: 04:57 No Known Allergies; ea - Home Meds: 04:57 None [Active]; ea - PMHx: 04:57 Migraines; ea - PSHx: 04:57 Appendectomy; Tubal ligation; neck, back, knee, cosmetic sx; ea - Immunization history:: Adult Immunizations up to date. - Social history:: Smoking status: Patient denies any tobacco usage or history of. Patient/guardian denies using alcohol, street drugs. Screenin:58 Abuse screen: Denies threats or abuse. Denies injuries from another. Nutritional rv screening: No deficits noted. Tuberculosis screening: No symptoms or risk factors identified. Fall Risk None identified. Assessment: 04:57 General: Appears comfortable, Behavior is calm, cooperative. Pain: Complains of pain in rv chest Pain radiates to right cheek and right jaw Pain began suddenly. Neuro: Level of Consciousness is awake, alert, obeys commands, Oriented to person, place, time, situation. Cardiovascular: Patient's skin is warm and dry. Rhythm is regular. Respiratory: Airway is patent Respiratory effort is even, unlabored, Breath sounds are clear bilaterally. Derm: Skin is intact. Vital Signs: 04:55 Weight 73.94 kg; Height 5 ft. 4 in. (162.56 cm); ea 04:56 BP 147 / 84; Pulse 74; Resp 16; Temp 98.2; Pulse Ox 97% on R/A; rv 04:55 Body Mass Index 27.98 (73.94 kg, 162.56 cm) ea ED Course: 04:40 Patient arrived in ED. bp1 04:54 Chad Arredondo MD is Attending Physician. mh7 04:56 Triage completed. ea 04:56 Vito Serrato, ROXANA is Primary Nurse. rv 04:58 Arm band placed on left wrist. EKG completed in triage. Results shown to MD. ea 04:58 Patient has correct armband on for positive identification. teletypesetter monitor on. Pulse rv ox on. NIBP on. 04:58 Patient maintains SpO2 saturation greater than 95% on room air. rv 05:10 Inserted saline lock: 20 gauge in right forearm, using aseptic technique. Blood rv collected. 05:10 Initial lab(s) drawn, by ct, sent to lab. rv 05:32 XRAY Chest (1 view) In Process Unspecified. EDMS 06:01 Eliseo Fulton MD is Hospitalizing Provider. mh7 10:38 No provider procedures requiring assistance completed. Patient admitted, IV remains in em place. Administered Medications: 05:08 CANCELLED (wrong order): Aspirin 325 mg PO once mh7 05:20 Drug: Aspirin Chewable Tablet 324 mg Route: PO; rv 05:20 Drug: morphine 2 mg Route: IVP; Site: right forearm; rv 05:20 Drug: Zofran (Ondansetron) 4 mg Route: IVP; Site: right forearm; rv Outcome: 06:01 Decision to Hospitalize by Provider. mh7 10:38 Admitted to [facility] accompanied by nurse, via stretcher, with chart. em 10:38 Condition: stable 10:38 Instructed on the need for admit, Demonstrated understanding of instructions. 10:39 Patient left the ED. em Signatures: Dispatcher [employer] EDOH Raphael Parkinson RN RN Grace Guajardo RN RN Vito Serrato, ROXANA SCHMIDT rv Berta Rios Maurice, MD PÉREZ mh7
[2020-07-27] MEDS ORDERED: ACETAMINOPHEN 500 MG TAB PO PRN (07:14)
[2020-07-27] MEDS ORDERED: METOPROLOL TAR 25 MG TAB PO SCH (07:14)
[2020-07-27] MEDS ORDERED: MORPHINE 2 MG/ML SYR IV PRN (07:14)
[2020-07-27] MEDS ORDERED: ONDANSETRON 4 MG/2 ML VIAL IV PRN (07:14)
[2020-07-27] MEDS ORDERED: ASPIRIN EC 81 MG TAB PO ONE (08:07)
[2020-07-27] MEDS ORDERED: ATORVASTATIN 20 MG TAB ONE (08:37)
[2020-07-27] MEDS ORDERED: METOPROLOL TAR 25 MG TAB ONE (08:37)
--- NOTE | 2020-07-27 09:02 | CON ---
Date of Consultation: 07/27/2020 Admitted on 07/27/2020 through the emergency room. Reason For Consultation: Unstable angina. History Of Present Illness: Ms. Yan is a 60-year-old woman. She is known to me from previous offic e visit and heart catheterization. She has mild coronary artery disease by catheterization in 2016 a nd 2018. Have a very strong family history of heart disease. She came in with chest pain, midsterna l, radiating to the right neck and drawn with and without exertion. No nausea, vomiting, diaphoresis , PND, orthopnea, pedal edema, palpitation, or syncope. EKG was nonspecific. Troponin was negative. BNP was negative. Chest x-ray was negative. Past Medical History: As stated above and also includes history of migraine headache and gastroesoph ageal reflux disease. Allergies: NONE. Medications: At home include Protonix. Review of Systems: Negative. Social History: Negative. Family History: Very strong for heart disease and all family members have had stent or bypasses. Physical Examination: Vital Signs: Stable, afebrile. HEENT: Negative. Neck: Supple without any bruit, lymphadenopathy, JVD or thyromegaly. Chest: Clear to auscultation and percussion. Cardiac: Revealed a regular rhythm and rate. No murmurs, gallops, or rubs. Abdomen: Benign. Extremities: Reveal no clubbing, cyanosis, or edema. Diagnostic Data: As stated above. Impression And Plan: Patient with strong family history of heart disease, mild; coronary artery dise ase, severe. Symptoms are very consistent with unstable angina. We will plan a heart catheterization today. The patient understands the risk and the benefits of the procedure and agreed to proceed. RIAN/AMY Voice ID: [id number] Report ID: [id number]
[2020-07-27] MEDS ORDERED: NA CHLORIDE 0.9% 500 ML ONE ×2 (09:28→16:01)
--- NOTE | 2020-07-27 10:48 | RAD REPORT ---
EXAM DESCRIPTION: RAD - Chest Single View - 07/27/2020 5:31 am CLINICAL HISTORY: CHEST PAIN COMPARISON: None. FINDINGS: Single frontal radiograph view of the chest. Cardiomediastinal silhouette: Normal size and contour. Lungs: No consolidation, pneumothorax, or pleural effusion. Bones: No acute osseous abnormality. Leads overlie the chest. Upper abdomen: No abnormality identified. IMPRESSION: 1. No acute pulmonary process identified. Electronically signed by: Elder Green 07/27/2020 5:47 AM LEAD HANDLER Due to temporary technical issues with the PACS/Fluency reporting system, reports are being signed by the in house radiologists without review as a courtesy to insure prompt reporting. The interpreting radiologist is fully responsible for the content of the report.
[2020-07-27 11:52] LABS: HDL Cholesterol 67 mg/dL (40-60); LDL Cholesterol, Calculated 169 (<130); Troponin I < 0.02 ng/mL (0.0-0.045)
[2020-07-27] MEDS ORDERED: HEPA 1000U/500MLS 2,000 UNIT/1,000 ML BAG IV ONE (11:57)
[2020-07-27] MEDS ORDERED: VERAPAMIL HCL 10 MG/4 ML VIAL IV ONE (12:23)
[2020-07-27] MEDS ORDERED: MIDAZOLAM HCL 2 MG/2 ML INJ ONE (12:23)
[2020-07-27] MEDS ORDERED: HEPARIN 10,000 UNIT/10 ML VIAL IV ONE (12:23)
[2020-07-27] MEDS ORDERED: FENTANYL CITR 100 MCG/2 ML ONE (12:23)
[2020-07-27] MEDS ORDERED: NITROGLYCERIN 100 MCG/ML SYR (for cath lab use only) IV ONE (12:23)
[2020-07-27] MEDS ORDERED: ATROPINE SULF 1 MG/10 ML SYR IV ONE (12:24)
[2020-07-27] MEDS ORDERED: NITROGLYCERIN/D5W 25 MG/250 ML BTL IV ONE (12:24)
--- NOTE | 2020-07-27 12:29 | P.HP ---
Certification for Inpatient Patient admitted to: Observation With expected LOS: <2 Midnights Patient will require the following post-hospital care: None Practitioner: I am a practitioner with admitting privileges, knowledge of patient current condition, hospital course, and medical plan of care. Services: Services provided to patient in accordance with Admission requirements found in Title 42 Section 412.3 of the Code of Federal Regulations Patient History Date of Service: 07/27/20 Reason for admission: Chest pain rule out acute coronary syndrome/unstable angina History of Present Illness: Patient is a 60-year-old female with a history of Coronary artery disease. She has had a cardiac catheterization a couple of years ago with mild coronary toshia ry disease. She has a very strong family history of heart disease. She came in with chest pain, midsternal, radiating to the right neck and arm. Patient states that the chest pain occurs at rest. It does get worse with exertion. Patient also denies any nausea, vomiting, diaphoresis, palpitation, or syncope. EKG was nonspecific. Troponin was negative. BNP was negative. Chest x-ray was negative. Patient was seen by Cardiology and decision was made to proceed with a heart catheterization with a prior medical history. Allergies No Known Drug Allergies Allergy (Verified 01/14/19 13:34) Unknown Home Medications: Bismuth Subsalicylate [Pepto-Bismol] 262 mg PO BID 07/06/18 Docusate Sodium [Stool Softener] 100 mg PO DAILY 07/06/18 Doxycycline Hyclate 100 mg PO BID 07/06/18 Estrogens,Conj Cream [Premarin 0.625MG/Gm*] 1 appl VAG EVERY 3RD DAY 07/06/18 Pantoprazole [Protonix Tab*] 40 mg PO BID 07/06/18 Polyethylene Glycol 3350 [Miralax] 17 gm PO BID 07/06/18 Psyllium [Metamucil (Hydrocil)*] 1 pkt PO BID 07/06/18 metroNIDAZOLE [Flagyl*] 1 tab PO BID 07/06/18 Aspirin [Ecotrin 81 MG] 81 mg PO DAILY #30 tablet. 07/27/20 Atorvastatin Calcium [Lipitor] 40 mg PO BEDTIME #30 tab 07/27/20 Clopidogrel Bisulfate [Plavix] 75 mg PO DAILY #1 tablet 07/27/20 Metoprolol Tartrate [Lopressor*] 25 mg PO BID 6AM 6PM #60 tab 07/27/20 - Past Medical/Surgical History -: Coronary artery disease -: Hypertension -: Cardiac catheterization - Family History Father Family History: Reviewed- Non-Contributory - Social History Smoking Status: Never smoker Alcohol use: No CD- Drugs: No Review of Systems 10-point ROS is otherwise unremarkable Physical Examination - Vital Signs Temperature: 98.2 F Blood Pressure: 122/80 Pulse: 70 Respirations: 18 Pulse Ox (%): 100 - Physical Exam General: Alert, In no apparent distress, Oriented x3 HEENT: Atraumatic, PERRLA, Mucous membr. moist/pink, EOMI, Sclerae nonicteric Neck: Supple, 2+ carotid pulse no bruit, No LAD, Without JVD or thyroid abnormality Respiratory: Clear to auscultation bilaterally, Normal air movement Cardiovascular: Regular rate/rhythm, Normal S1 S2, No murmurs Gastrointestinal: Normal bowel sounds, Soft and benign, Non-distended, No tenderness Musculoskeletal: No clubbing, No swelling, No tenderness Integumentary: No rashes Neurological: Normal gait, Normal speech, Normal strength at 5/5 x4 extr, Normal tone, Sensation intact, Cranial nerves 3-12 intact, Normal affect Lymphatics: No axilla or inguinal lymphadenopathy - Studies Laboratory Data (last 24 hrs) 07/27/20 05:04: PT 10.5, INR 0.89 07/27/20 05:04: WBC 6.4, Hgb 13.7, Hct 42.4, Plt Count 242 07/27/20 05:04: Sodium 138, Potassium 4.1, BUN 21 H, Creatinine 0.76, Glucose 99, Magnesium 2.4, Total Bilirubin 0.2, AST 19, ALT 23, Alkaline Phosphatase 70 Assessment & Plan - Problems (Diagnosis) (1) Unstable angina Status: Acute (2) Hyperlipidemia Status: Acute (3) Coronary artery disease Status: Acute (4) Hypertension Status: Acute - Plan 1. Serial troponins and EKG 2. Appreciate Cardiology consultation 3. Patient is to proceed with heart catheterization 4. Anti-platelet therapy, anti coagulation, beta-brayan, statin, and O2 as needed 5. IV morphine for pain 6. Nitro p.r.n. 7. GI and DVT prophylaxis Patient heart catheterization did not reveal any significant abnormalities, and patient did not need any intervention. At this time, patient is stable for discharge home with outpatient follow up. Discharge Plan: Home Plan to discharge in: Greater than 2 days - Advance Directives Does patient have a Living Will: No Does patient have a Durable POA for Healthcare: No - Code Status/Comfort Care Code Status Assessed: Yes Code Status: Full Code Critical Care: No Time Spent Managing PTS Care (In Minutes): 45 Home Medications: Bismuth Subsalicylate [Pepto-Bismol] 262 mg PO BID 07/06/18 Docusate Sodium [Stool Softener] 100 mg PO DAILY 07/06/18 Doxycycline Hyclate 100 mg PO BID 07/06/18 Estrogens,Conj Cream [Premarin 0.625MG/Gm*] 1 appl VAG EVERY 3RD DAY 07/06/18 Pantoprazole [Protonix Tab*] 40 mg PO BID 07/06/18 Polyethylene Glycol 3350 [Miralax] 17 gm PO BID 07/06/18 Psyllium [Metamucil (Hydrocil)*] 1 pkt PO BID 07/06/18 metroNIDAZOLE [Flagyl*] 1 tab PO BID 07/06/18 Aspirin [Ecotrin 81 MG] 81 mg PO DAILY #30 tablet. 07/27/20 Atorvastatin Calcium [Lipitor] 40 mg PO BEDTIME #30 tab 07/27/20 Clopidogrel Bisulfate [Plavix] 75 mg PO DAILY #1 tablet 07/27/20 Metoprolol Tartrate [Lopressor*] 25 mg PO BID 6AM 6PM #60 tab 07/27/20 Patient Discharge Instructions: OK TO DC IV AND DC HOME. FOLLOW-UP WITH PRIMARY CARE PROVIDER IN 1-2 WEEKS. FOLLOW-UP WITH CARDIOLOGY IN 1-2 WEEKS. RETURN TO THE ER IF symptoms worsen. CALL or TEXT DR. GOLDSMITH AT [phone] IF ANY QUESTIONS REGARDING HOSPITAL STAY. PLEASE CALL THE FLOOR AT [phone] IF ANY MEDICATION OR NURSING QUESTIONS. Diet: AHA Activity: Fall precautions Time spent managing pt's care (in minutes): 45
[2020-07-27] MEDS ORDERED: REGADENOSON 0.4 MG/5 ML SYR IV ONE (12:40)
[2020-07-27 17:11] VITALS: O2SAT 97
[2020-07-27] MEDS ORDERED: ATORVASTATIN 40 MG TAB PO SCH (21:00)
[2020-07-28] MEDS ORDERED: ASPIRIN EC 81 MG TAB PO SCH (09:00)
--- NOTE | 2020-07-29 06:13 | EKG ---
Test Date: 2020-07-27 Test Time: 04:59:20 Clinical Laboratory Technologist: JIL MEASUREMENT RESULTS: Intervals: Rate: 74 PA: 136 QRSD: 92 QT: 384 QTc: 426 [place]: P: 65 PA: 136 QRS: 82 T: 57 INTERPRETIVE STATEMENTS: Normal sinus rhythm Normal ECG No previous ECG available for comparison Electronically Signed On 07-29-20 06:09:30 INK MAKER by Dwaine March
[2020-08-05 00:56] VITALS: BP 122/80; TEMP 98.2
== END 2020-07-27 17:07 | disposition home or self-care (01) ==
LOC: ER 04:37 → ERHOLD 06:05
PROVIDERS: ADMIT Hospitalist; ATTEND Hospitalist
DX: I25.110 Atherosclerotic heart disease of native coronary artery with unstable angina pectoris (principal); Z82.49 Family history of ischemic heart disease and other diseases of the circulatory system; K21.9 Gastro-esophageal reflux disease without esophagitis; I10 Essential (primary) hypertension; E78.5 Hyperlipidemia, unspecified
CPT/HCPCS: 93005; 85025; 80048; 36415; 83735; 85610; 80061; 80076; 84443; 84484 ×2; 84439; 83880; 71045; 93458; 96375; 96374; 99285; C1893; J2250; J3010; J2270; J1644 ×2; J7040 ×2; J2405; G0378 ×2; 85347; J2785

== ENCOUNTER 2021-02-02 07:14 | Day surgery (SDC) | payer BC ==
[2021-01-29 14:02] LABS: Urine Appearance CLEAR (Clear); Urine Bilirubin NEGATIVE (Negative); Urine Blood NEGATIVE (Negative); Urine Color YELLOW (Yellow); Urine Glucose NEGATIVE (Negative); Urine Protein NEGATIVE (Negative); Urine Specific Gravity 1.025 (1.005-1.030); Urine pH 7.5 (5.0-7.0)
[2021-01-29 14:10] LABS: Urine Microscopic Reflex NO UMIC
[2021-01-29 14:11] LABS: Potassium 3.8 mmol/L (3.5-5.1)
[2021-01-29 14:12] LABS: Absolute Lymphocytes (CBC) 1.2 K/uL (0.7-4.9); Hematocrit 39.1 % (36.0-45.0); Lymphocytes % 23.5 % (15.3-44.8); MPV 8.7 fL (7.6-11.3); RBC Red Blood Cell Count 4.27 M/uL (3.86-4.86)
[2021-01-29 14:14] LABS: Protime INR 0.91
[2021-02-02] MEDS ORDERED: KETAMINE HCL 500 MG/5 ML VIAL ONE (07:36)
[2021-02-02] MEDS ORDERED: dexAMETHasone 10 MG/ML VIAL ONE (07:36)
[2021-02-02] MEDS ORDERED: LIDOCAINE 2% MPF 5 ML VIAL ONE (07:36)
[2021-02-02] MEDS ORDERED: ROCURONIUM 50 MG/5 ML VIAL IV ONE (07:36)
[2021-02-02] MEDS ORDERED: propofoL 200 MG/20 ML VIAL IV ONE (07:36)
[2021-02-02] MEDS ORDERED: ONDANSETRON 4 MG/2 ML VIAL ONE (07:37)
[2021-02-02] MEDS ORDERED: FENTANYL CITR 250 MCG/5 ML ONE (07:37)
[2021-02-02] MEDS ORDERED: NS 0.9% VIAL 10 ML ONE (07:37)
[2021-02-02] MEDS ORDERED: MIDAZOLAM HCL 2 MG/2 ML INJ ONE (07:37)
[2021-02-02] MEDS ORDERED: SCOPOLAMINE HYDROBROMIDE PATCH TD ONE (07:48)
[2021-02-02] MEDS ORDERED: Ringers Lactate 1,000 ML IV ONE ×3 (07:49→13:09)
[2021-02-02] MEDS: CEFAZOLIN/SWI 2gm 2 GM/20 ML SYR ONE ×3 (08:59→10:00)
[2021-02-02] MEDS ORDERED: LIDOCAINE 1% W/EPI 1:100,000 MDV 20 ML VIAL ONE (09:42)
[2021-02-02] MEDS ORDERED: NA CHLORIDE 0.9% 100 ML IV ONE (09:42)
[2021-02-02] MEDS: BUPIVACAINE 0.25% PF 30 ML VIAL ONE ×2 (09:45→10:19)
[2021-02-02] MEDS ORDERED: Phenylephrine HCl 10 MG/ML 1 ML VIAL ONE (10:17)
[2021-02-02] MEDS ORDERED: EPHEDRINE SULF 50 MG/ML VIAL ONE (10:34)
[2021-02-02] MEDS ORDERED: CEFAZOLIN/SWI 1gm 1 GM/10 ML SYR ONE (11:08)
[2021-02-02] MEDS: VASOPRESSIN 20 UNIT/ML VIAL ONE ×2 (11:12→14:35)
[2021-02-02] MEDS ORDERED: ONDANSETRON 4 MG/2 ML VIAL IV PRN (15:40)
[2021-02-02] MEDS ORDERED: ACETAMINOPHEN 500 MG TAB PO PRN (15:40)
[2021-02-02] MEDS ORDERED: PROMETHAZINE INJ 25 MG/ML AMP IV PRN (15:40)
[2021-02-02] MEDS ORDERED: HYDROMORPHONE HCL 1 MG/ML INJ IV PRN (15:40)
[2021-02-02] MEDS ORDERED: KETOROLAC 30 MG/ML INJ ONE (15:41)
--- NOTE | 2021-02-02 15:47 | P.BOP ---
Preoperative diagnosis: stage 2 anterior/ apical prolapse recurrent/ post wall prolapse JULIANN Postoperative diagnosis: same and extensive Sb and omental adhesions Primary procedure: Lapsc extensive FELICIANO 1hr (sb and omentum) LSCP Secondary procedure: post wall and enterocele repairs, MUS TO cystoscopy Other procedure(s): perineocele and perineal body reconstruction Outside Deliverer: Naima Thornton Estimated blood loss: 50 Specimen: none Findings: -1/+1/-2/4/thin/8 Anesthesia: General Complications: None Drain(s): Urinary catheter Implants: upsylon and TVT-O Transferred to: Recovery Room Condition: Good
[2021-02-02] MEDS ORDERED: IBUPROFEN 600 MG TAB PO PRN (16:14)
[2021-02-02] MEDS: Ringers Lactate 1,000 ML IV SCH (18:11)
[2021-02-02] MEDS: CEFAZOLIN/SWI 1gm 1 GM/10 ML SYR IVP SCH (18:11)
[2021-02-03] MEDS: Ringers Lactate 1,000 ML IV SCH (02:00)
[2021-02-03] MEDS: CEFAZOLIN/SWI 1gm 1 GM/10 ML SYR IVP SCH (02:10)
[2021-02-03 06:11] LABS: Absolute Lymphocytes (CBC) 1.3 K/uL (0.7-4.9); Basophils % 0.3 % (0-1.3); Hematocrit 32.2 % (36.0-45.0); Lymphocytes % 13.6 % (15.3-44.8); MPV 8.3 fL (7.6-11.3); RBC Red Blood Cell Count 3.51 M/uL (3.86-4.86)
[2021-02-03 07:46] VITALS: BP 104/61; TEMP 97.9; O2SAT 97
--- NOTE | 2021-02-03 09:45 | OP ---
Date of Procedure: 02/02/2021 Surgeon: Debbie Garcia MD Truck Repair Supervisor: Naima Thornton. 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 Postoperative Diagnoses: Stage II anterior apical prolapse that is recurrent, posterior wall prolaps e, stress urinary incontinence, posterior enterocele, small bowel and omental adhesions to the anteri or abdominal wall, perineocele. Procedures Performed: 1.Diagnostic laparoscopy, extensive lysis of adhesions at least 1 hour to take the small bowel and o mentum off the anterior abdominal wall and other adhesions, left sigmoid off the vaginal cuff. 2.Sacral colpopexy with Upsylon Y mesh. 3.Distal posterior wall repair, posterior enterocele repair done vaginally. 4.Mid urethral sling transobturator (TVTO). 5.Cystoscopy. 6.Lysis of adhesions at the level of the bladder was also significant due to the past history of [place] rosacral suspension to the vaginal apex. 7.Perineocele repair and perineal body reconstruction .. Anesthesia: General endotracheal. Sopecimens: No specimens. Compications: No complications. Drains: Villar catheter. Implants: Upsylon Y mesh and TVTO. Findings: POP-Q with -1, +1, - 2, 4, thin, 8, 0, 0, NA. and PERINEOCELE was significant on doing a v aginal exam. The tone of the levators was also extremely low. The sphincter tone low as well. The distal posterior wall connective tissue and the rectovaginal septum were intact, however, just very s tretched out. The repair was done from the area below the level of the sacral colpopexy distal arm f ixation all the way down to the perineal body once the perineal body was reconstructed in a side-to-s sachi technique. There seemed to be excellent support of the posterior wall as well as the perineal lashonda dy. Indications: The patient is a 61-year-old female with a prolapse. She had uterosacral suspension be cause apical prolapse was the most significant one for her 2 years ago. Hysterectomy was performed a t that time. She came back with recurrent prolapse, difficulty to empty her bladder and bladder infe ctions. She was evaluated in the office. Also had significant fecal incontinence. She was referred to Colorectal Surgery for this and they recommended how to get her prolapse fixed. Due to the signi ficant posterior wall laxity, there were bowel evacuation issues could be leading to her fecal leakag e. So, after considering all the different alternatives, recommended to have a laparoscopic sacral c olpopexy to fix the both, anterior and posterior pérez as well as the apex where the recurrence is. At this time, the anterior wall was the most significant defect on objective examination. She also h as occult JULIANN, so proceeded with consenting her for mid urethral sling. The patient understood all t he risks and complications and recurrence rate, postoperative care compared to vaginal repair with a biologic graft augmented anterior repair. Proceed with a sacrocolpopexy. Warned the patient about a ll the time that it took for lysis of adhesions at her hysterectomy and that this could be likely the case again. She was consented appropriately. Description Of Procedure: After informed consent was re-verified, 2 g of Ancef were given. She was taken back to the OR, placed in a supine fashion on the operating table. General anesthesia was give n, placed in a dorsal lithotomy position. Pelvic exam was performed and POP-Q as dictated above. Gi willi her abdominoplasty scar and the fact that she has had multiple other surgeries, planned to make a supraumbilical incision for entry. Abdomen, vulva, vagina, and perineum were prepped and draped in a sterile fashion. Villar was placed to drain the bladder and attached for retrograde filling. A vaginal Colpassist was introduced into t he vagina on the abdominal wall. Supraumbilical curvilinear incision was made with a scalpel. Fasci a was incised with a 15 blade and the peritoneum was entered bluntly with the finger and then S-retra ctors were placed. Lois was introduced. Site of entry was checked, unremarkable. There were dens e significant adhesions around the entry point, small bowel to the anterior abdominal wall at the inf raumbilical area. Zero Vicryl sutures were placed to tag the fascial edges before the Lois was introduced. A left lower quadrant incision and an 8 port was placed and a right lower quadrant 8 port as well. H owever, it was difficult after doing some dissection to take the omental adhesions off. It was diffi cult to access and retract, so placed a 5 left upper quadrant port under direct visualization. Maryam ine was injected at all skin sites in the fascia before the incision was made for the trocar. The omental adhesions were taken down systematically with the help of the LigaSure. Windows were mad e and careful dissection was done, then carefully the bowel adhesions were taken down, creating a surendra ne taking down. All the dissection was performed with sharp scissors. Then, on the anterior abdomin al wall, the posterior wall of the rectus fascia was attached significantly to this and in 1 small ar ea there was an incision on the rectus fascia to be safely taking down the bowel adhesions. Once the entire bowel was dropped down here, attention was directed to placing the suprapubic 10 port and aft er this was done, then left sigmoid adhesions were taken down from the vaginal cuff. They were still significantly adhered to the left lateral wall and these were left alone as this helped the retracti on and there was no need to look at the left lateral wall. Once the adhesions were taken down from t he top, the vaginal apex was visualized. There were significant adhesions of the bladder to the vagi nal cuff as well. This was from the uterosacral suspension. So, the next task was with the help of the Colpassist. This was raised and was able to take down. Opened peritoneum at the level of the cu ff and carefully dissect the bladder off. Once this was done, in the center, there were significant dense adhesions. Once the windows were made and anterior vaginal wall was visualized without getting into the connective tissue just between the flap of the perivesical fat and the wall. Dissection wa s performed on both sides of this very dense adhesion with the Joseph. Once this was done, then the adh esion in the middle was taken down carefully with the help of sharp scissors and dissection was perfo rmed to 3.5 cm distal to the cuff. Once passed this on an 8 cm vaginal length, the urethra was about 3 cm in a cm and half for the trigone. Then, pretty close to 4 cm was my target and so since there were significant adhesions below that, I did not dissect it any further. Good lateral dissection was obtained and exposure. Posteriorly, the peritoneum was taken down with the help of sharp scissors. Dissection was carried a ll the way down to 6 to 7 cm on the posterior wall from the apex. Once this was done, the rectum was dropped down. The posterior wall of the vagina was well visualized and the peritoneal dissection wa s carried from all the way here to the presacral space. The presacral space was well identified once the window was made initially here with the help of sharp scissors and dissection was taken down. T he presacral nerves and vessels were dissected appropriately and then the incision connected. The rig ht ureter and iliacs were identified internal-external. Carefully dissection was performed between t he sigmoid and the ureter. After the completion of this dissection, the Y mesh was tailored 8 cm on the posterior wall length an d 6 on the anterior. Anterior leaf sutured to the Y arm going to the sacrum. V-Loc placed in the ce nter, distal arm and this was fixated to the posterior vaginal wall with a [id number] with the V -Loc suture. This was cut, then 2 Prolene sutures 2-0 were placed, 1 on each side for the distal fix ation of the posterior arm. A [id number] was taken here carefully making sure did not go throug h the vaginal epithelium. Once this was complete here, the posterior arm was fixed at least 2 cm dis oanh from the apex to keep it flat on both sides with V-Loc, total 5 sutures posteriorly. Then, the a nterior arm was released, the wide arm at least 5 to 6 cm from the bifurcation was fixed to the anter ior longitudinal ligament, which was clearly dissected and a ProTack gun was used to pin down this to the ligament related, 3 pins in each layer. The mesh was folded over and the second layer was done. The extra mesh was trimmed and removed. The anterior arm was fixed to the anterior vaginal wall wi th 2 Prolenes in the distal and lateral aspects of the arm and then in the center with a V-Loc and th en 2 lateral V-Loc sutures on the anterior wall about half a cm away from the distal most aspect of t he cuff. Once there was adequate mesh suspension, then anterior vaginal wall exam was performed. There was sl ight drop in the point V-A. This was very insignificant. There was good suspension apically and ant eriorly and the wall was nicely flattened out. Posterior suspension was adequate as well. The peritoneal closure was done from the sacral area to the cuff and the peritoneum on top of the prosper dder. The mesh was retroperitonealized with the help of a 2-0 V-Loc continuous running suture. Good irrigation and suction were performed. Excellent hemostasis. No evidence of any injury to the ureter or the vessels. All the trocars were removed and injected with Marcaine and fascia and skin c losed with the help of the 0 Vicryl sutures on the fascia, suprapubic and umbilical sites and skin cl osed with interrupted 4-0 Vicryl. Vaginally, a mid urethral sling was performed first. Mid urethral area was picked up with 2 Allis cl amps, injected with dilute vasopressin. 1 cm incision made in the mid urethral area with the help of 15 blade. Dissection was performed under the fascial layer going to the ipsilateral obturator space . Perforated the obturator membrane and enlarged the tract. This was done on both sides. Then, the wing guide was placed. Scot was passed appropriately hugging inferior pubic ramus and exiting at a point marked for the exit point, 2 cm lateral to the groin fold and 1 cm above the horizontal line, dropped at the level of the external meatus staying away from the adductor longus tendon. Same on th e left side. Similar pass was performed on the left side without any problems. Mesh was tensioned a ppropriately with the help of Raymond and the vaginal epithelial closure was done after irrigating with antibiotic solution using 3-0 Vicryl in a continuous running fashion. The groin incisions were sealed with the help of skin glue vaginally. There was excellent closure. The Villar was removed and cystoscopy was performed. Excellent jets of urine from both ureteric orifi ruth. No evidence of any trauma or foreign body in the bladder. The entire trigone, area above the t rigone, dome of the bladder, lateral pérez were all carefully visualized and bladder was drained and Villar was replaced. Posterior repair was then performed. Attention was directed to it. Allis clamps placed at the level of the hymen. Rectovaginal exam was performed to identify the length of the perineum and the laxity of the perineum for perineal body reconstruction. There was a clear perineocele here that was much more visible as the patient strained for defecation which implied a significant perineal body descent . Posterior wall was injected as well as the perineum with dilute vasopressin. Then, a oskar-shaped incision was made on the vaginal epithelium in the distal 1/4 and the vaginal epithelium was skinned off. Then, rectovaginal septum was from the help of the vaginal epithelium and sub-epithel ium and dissection was carried all the way to the level of the distal attachment of the Y mesh. Late rally it was dissected all the way to the levators and then the perineal body was opened up in a vert ical fashion. Dissection was performed the perineal skin from the scar and the connective tissue. The lateral aspects of the perineal body were picked up with Allis clamps and then suture w as performed with the help of interrupted 2-0 Vicryl to reconstruct the perineal body. Then, the pos terior enterocele that was seen was closed with the help of a 3-0 Monocryl in a pursestring fashion a nd then the rectovaginal septum was connected to the Y mesh. So here, there was no room for any reat tachment, however, there was significant laxity, so a plication was performed from [id number] with 2-0 PDS imbricating the rectovaginal septum and once this was done and reattached to the perineal bod y, there was excellent support and the suture was placed. The knot was tied well inside the vaginal canal . Then, vaginal epithelium was slightly trimmed, placing a Monie, making sure the diameter was not comp romised and then 2 continuous running horizontal mattress sutures were used to close the vaginal epit helium. The perineum was closed with the help of 3-0 Vicryl in a continuous running horizontal mattr ess fashion. There was excellent perineal body thickness and laxity was still present, but much bett er. Levatorplasty was now performed to avoid dyspareunia. The vaginal packing was placed. The Villar was left in place and attached to a drainage bag. She was recovered from anesthesia and taken to PACU in stable condition. Ebl: 50. Urine Output: 300. She will remain on Ancef 1 g q.8 hours. At home, she will continue her antibiotic for prevention of urinary tract infection. TONG/AMY Voice ID: [id number] Report ID: [id number]
== END 2021-02-03 10:04 | disposition home or self-care (01) ==
LOC: OR 07:14 → 2ND-WC 15:49 → OR 02-03 10:04
PROVIDERS: ATTEND Obstetrics & Gynecology
PROC: 0DN84ZZ Release Small Intestine, Percutaneous Endoscopic Approach (ICD-10-PCS; 2021-02-02)
PROC: 0TNB4ZZ Release Bladder, Percutaneous Endoscopic Approach (ICD-10-PCS; 2021-02-02)
PROC: 0USG7ZZ Reposition Vagina, Via Natural or Artificial Opening (ICD-10-PCS; 2021-02-02)
PROC: 0TSD0ZZ Reposition Urethra, Open Approach (ICD-10-PCS; 2021-02-02)
PROC: 0HQ9XZZ Repair Perineum Skin, External Approach (ICD-10-PCS; 2021-02-02)
PROC: 0UQF7ZZ Repair Cul-de-sac, Via Natural or Artificial Opening (ICD-10-PCS; 2021-02-02)
PROC: 0DNN4ZZ Release Sigmoid Colon, Percutaneous Endoscopic Approach (ICD-10-PCS; principal; 2021-02-02 09:00)
DX: N32.81 Overactive bladder (principal); N81.2 Incomplete uterovaginal prolapse; N39.3 Stress incontinence (female) (male); N95.2 Postmenopausal atrophic vaginitis; K59.00 Constipation, unspecified; I25.10 Atherosclerotic heart disease of native coronary artery without angina pectoris
CPT/HCPCS: 85025 ×2; 80048; 36415 ×2; 86900; 86850; 85610; 86901; 85730; 81003; 44180; 57282; 57288; 56810; 57268; U0003; J2704; J2370; J2250; J3010; J1100; J0690 ×4; J7120 ×5; J2405

== ENCOUNTER 2023-08-09 15:50 | Observation (INO) | payer BC ==
[2023-08-09] MEDS ORDERED: ONDANSETRON 4 MG/2 ML VIAL ONE (16:29)
[2023-08-09] MEDS ORDERED: NA CHLORIDE 0.9% 1,000 ML ONE (16:29)
[2023-08-09] MEDS ORDERED: MORPHINE 4 MG/ML SYR ONE (16:29)
[2023-08-09] MEDS ORDERED: FAMOTIDINE 20 MG/2 ML VIAL IV ONE (16:29)
--- NOTE | 2023-08-09 16:43 | RAD REPORT ---
EXAM DESCRIPTION: RAD - Chest Single View - 08/09/2023 4:38 pm CLINICAL HISTORY: CHEST PAIN Chest pain. COMPARISON: Chest Pa And Lat (2 Views) dated 01/27/2022; Chest Single View dated 07/27/2020; Chest Pa And Lat (2 Views) dated 01/14/2019; Abdomen 1 View (KUB) dated 11/02/2016 FINDINGS: Portable technique limits examination quality. The lungs are grossly clear. The heart is normal in size. No displaced fractures. IMPRESSION: No acute intrathoracic process suspected.
[2023-08-09 17:02] LABS: Absolute Lymphocytes (CBC) 1.2 K/uL (0.7-4.9); Hematocrit 41.9 % (36.0-45.0); Lymphocytes % 29.5 % (15.3-44.8); MCV 90.2 fL (80-100); MPV 8.5 fL (7.6-11.3); Platelets 229 thou/uL (152-406); RBC Red Blood Cell Count 4.65 M/uL (3.86-4.86)
[2023-08-09 17:09] LABS: Protime INR 1.02
[2023-08-09] MEDS ORDERED: ASPIRIN 81 MG CHEWABLE TABLET ONE (17:11)
[2023-08-09 17:21] LABS: Specific Gravity 1.019 (1.005-1.030); Urine Bacteria <20 /HPF (<20); Urine Bilirubin NEGATIVE (Negative); Urine Blood 1+ (Negative); Urine Clarity Extremely Turbid (Clear); Urine Color Yellow (Yellow); Urine Crystals Unidentified Few /HPF (None Seen); Urine Glucose NEGATIVE (Negative); Urine Mucus 3+ /HPF (None Seen); Urine Protein TRACE (Negative); Urine Urobilinogen Normal (Normal)
[2023-08-09 17:27] LABS: Albumin 3.3 g/dL (3.4-5.0); Bilirubin Direct 0.1 mg/dL (0-0.2); Bilirubin Indirect, Calculated 0.2 mg/dL (0.2-0.8); Bilirubin Total 0.3 mg/dL (0.2-1.0); Magnesium 2.1 mg/dL (1.6-2.4); Potassium 3.7 mEq/L (3.5-5.1); Protein, Total 7.2 g/dL (6.4-8.2); Troponin High Sensitivity 3.6 pg/mL (<58.9)
[2023-08-09] MEDS ORDERED: NA CHLORIDE 0.9% 50 ML ONE (17:27)
[2023-08-09] MEDS ORDERED: CEFTRIAXONE 1000 MG/VIAL ONE (17:27)
--- NOTE | 2023-08-09 17:40 | RAD REPORT ---
EXAM DESCRIPTION: US - Abdomen Exam Limited - 08/09/2023 5:02 pm CLINICAL HISTORY: ABD PAIN COMPARISON: ABDOMINAL EXAM LIMITED dated 09/24/2015 FINDINGS: The gallbladder demonstrates no gallstones. No pericholecystic fluid or gallbladder wall t hickening. The common bile duct is upper limit of normal measuring 6 mm. The liver demonstrates no findings of intrahepatic biliary dilatation. IMPRESSION: Unremarkable examination.
--- NOTE | 2023-08-09 17:45 | ER ---
Nurse's Notes [facility] Name: Armida Yan Age: 63 yrs Sex: Female : 1960 Arrival Date: 08/09/2023 Time: 15:50 Bed 14 Private MD: Diagnosis: Chest pain, unspecified;Epigastric abdominal tenderness;Headache;Nausea with vomiting, unspecified;UTI/ Urinary tract infection, site not specified;Diverticulosis of large intestine without perforation or abscess without bleeding Presentation: 08/09 16:03 Chief complaint: Patient states: she has been having abdominal pain, nausea and ap3 headache since Monday08/06/2023. Patient currently rates her pain as a 6/10 on the pain scale. Patient reports her pain increases when eating. Coronavirus screen: At this time, the client does not indicate any symptoms associated with coronavirus-19. Ebola Screen: No symptoms or risks identified at this time. Initial Sepsis Screen: Does the patient meet any 2 criteria? No. Patient's initial sepsis screen is negative. Does the patient have a suspected source of infection? Yes: Acute abdominal pain. Risk Assessment: Do you want to hurt yourself or someone else? Patient reports no desire to harm self or others. Onset of symptoms was August 06, 2023. 16:03 Method Of Arrival: Ambulatory ap3 16:03 Acuity: AKIN 3 ap3 Triage Assessment: 16:05 General: Appears in no apparent distress. Behavior is calm, cooperative, appropriate ap3 for age. Pain: Complains of pain in mid/upper abdomen Pain currently is 6 out of 10 on a pain scale. Pain began gradually, 2-3 days ago. Neuro: Level of Consciousness is awake, alert, obeys commands, Oriented to person, place, time, situation, Appropriate for age. Cardiovascular: Patient's skin is warm and dry. Respiratory: Airway is patent Respiratory effort is even, unlabored, Respiratory pattern is regular, symmetrical. GI: Reports upper abdominal pain, nausea. Historical: - Allergies: 16:04 No Known Allergies; ap3 - PMHx: 16:04 Migraines; 50% blockage "in the widowmaker"; ap3 - PSHx: 16:04 fundoplication (Migraines); Appendectomy; ap3 - Immunization history:: Client reports receiving the 2nd dose of the Covid vaccine, Flu vaccine is not up to date. - Social history:: Smoking status: Patient denies any tobacco usage or history of. Screenin:06 [facility] ED Fall Risk Assessment (Adult) History of falling in the last 3 months, ap3 including since admission No falls in past 3 months (0 pts). Abuse screen: Denies threats or abuse. Nutritional screening: No deficits noted. Tuberculosis screening: No symptoms or risk factors identified. Assessment: 16:52 General: Appears in no apparent distress. Behavior is calm, cooperative. Pain: mb9 Complains of pain in abdomen and head Pain does not radiate. Pain currently is 6 out of 10 on a pain scale. Quality of pain is described as throbbing, Pain began 2-3 days ago. Neuro: Vu Agitation-Sedation Scale (RASS): 0 - Alert and Calm Level of Consciousness is awake, alert, obeys commands, Oriented to person, place, time, situation, Appropriate for age Reports headache. Cardiovascular: Heart tones S1 S2 present Patient's skin is warm and dry. Respiratory: Airway is patent Respiratory effort is even, unlabored, Respiratory pattern is regular, symmetrical, Breath sounds are clear bilaterally. GI: Abdomen is round non-distended, Bowel sounds present X 4 quads. Abd is soft Abdomen is tender to palpation in right upper quadrant, left upper quadrant and left lower quadrant. : No signs and/or symptoms were reported regarding the genitourinary system. EENT: No signs and/or symptoms were reported regarding the EENT system. Derm: Skin is pink, warm \\T\\ dry. Musculoskeletal: Range of motion: intact in all extremities. 16:54 Reassessment: ultrasound at bedside. mb9 18:35 Reassessment: No changes from previously documented assessment. Patient and/or family mb9 updated on plan of care and expected duration. Pain level reassessed. Patient is alert, oriented x 3, equal unlabored respirations, skin warm/dry/pink. Vital Signs: 16:03 BP 147 / 98; Pulse 85; Resp 17; Temp 98.6; Pulse Ox 100% ; Weight 77.11 kg; Height 5 ap3 ft. 4 in. ; Pain 7/10; 16:53 BP 131 / 91; Pulse 83; Resp 18; Pulse Ox 100% on R/A; mb9 18:35 BP 146 / 100; Pulse 93; Resp 18; Pulse Ox 97% on R/A; mb9 16:03 Body Mass Index 29.18 (77.11 kg, 162.56 cm) ap3 16:03 Pain Scale: Adult ap3 Rao Coma Score: 17:01 Eye Response: spontaneous(4). Motor Response: obeys commands(6). Verbal Response: alia oriented(5). Total: 15. ED Course: 15:54 Patient arrived in ED. gm2 16:01 Regino Eugene MD is Attending Physician. alia 16:04 Triage completed. ap3 16:06 Arm band placed on left wrist. ap3 16:25 Marline Appiah, ROXANA is Primary Nurse. mb9 16:40 XRAY Chest (1 view) In Process Unspecified. EDMS 16:50 Lipase Sent. mb9 16:50 Urinalysis w/ reflexes Sent. mb9 16:50 CBC with Diff Sent. mb9 16:50 Basic Metabolic Panel Sent. mb9 16:50 LFT's Sent. mb9 16:52 EKG done, by ED staff, reviewed by Regino Eugene MD. Inserted saline lock: 20 gauge in mb9 right antecubital area, using aseptic technique. 16:54 Placed in gown. Bed in low position. Call light in reach. Side rails up X 1. Client mb9 placed on continuous cardiac and pulse oximetry monitoring. NIBP monitoring applied. parking worker on. Door closed. Noise minimized. Warm blanket given. 16:54 No provider procedures requiring assistance completed. mb9 17:03 US Abdomen Limited In Process Unspecified. EDMS 17:39 Eliseo Fulton MD is Hospitalizing Provider. alia 17:57 CT Head Brain wo Cont In Process Unspecified. EDMS 17:58 CT Abd/Pelvis - IV Contrast Only In Process Unspecified. EDMS 19:02 Report given to ROXANA Comer. mb9 Administered Medications: 16:42 Drug: NS 0.9% IV 1000 ml IV at 1 bolus Per protocol; 1000 mL bolus Route: IV; Rate: 1 mb9 bolus; Site: right antecubital; 17:57 Follow up: Response: No adverse reaction; IV Status: Completed infusion mb9 16:42 Drug: Ondansetron IVP 4 mg IVP once; over 2 minutes Route: IVP; Site: right antecubital;mb9 17:57 Follow up: Response: No adverse reaction mb9 16:45 Drug: morphine IVP or IV 4 mg IVP once over 4 mins Route: IVP; Infused Over: 4 mins; mb9 Site: right antecubital; 17:57 Follow up: Response: No adverse reaction mb9 16:50 Drug: Famotidine IVP 20 mg IVP once; dilute with 10 mL 0.9% NaCl; give over 2 minutes mb9 Route: IVP; Site: right antecubital; 17:56 Follow up: Response: No adverse reaction mb9 17:13 Drug: Aspirin PO Chewable Tablet 81 mg PO once Route: PO; mb9 17:56 Follow up: Response: (VIS) Vaccine information sheet provided today. Questions and/or mb9 concerns addressed. VIS edition date: Feb 19, 2021. 18:53 Follow up: Response: No adverse reaction mb9 17:31 Drug: Rocephin IV 1 grams IV at per protocol once; Given slow IV push per pharmacy mb9 instructions Route: IV; Rate: per protocol; Site: right antecubital; 17:56 Follow up: Response: No adverse reaction; IV Status: Completed infusion mb9 18:57 Drug: Enoxaparin Sub-Q 1 mg/kg Sub-Q once Route: Sub-Q; Site: right lower abdomen; mb9 Medication: 16:54 VIS not applicable for this client. mb9 Outcome: 17:45 Decision to Hospitalize by Provider. [facility] 08/10 13:38 Patient left the ED. aa5 Signatures: Dispatcher [employer] EDRegino Brunson MD MD cha Calderon, Audri RN RN aa5 Alya García RN RN ap3 Marline Appiah RN RN mb9 Mag Sarabia 2
--- NOTE | 2023-08-09 17:46 | EDPHYS ---
Physician Documentation [facility] Name: Armida Yan Age: 63 yrs Sex: Female : 1960 Arrival Date: 08/09/2023 Time: 15:50 Bed 14 Private MD: Regino Lester HPI: 08/09 16:56 This 63 yrs old Female presents to ER via Ambulatory with complaints of alia Abdominal Pain, Headache, Nausea. 16:56 The patient complains of pain to the forehead, left frontal area and right frontal alia area. The patient describes the headache as aching. Historical: - Allergies: 16:04 No Known Allergies; ap3 - PMHx: 16:04 Migraines; 50% blockage "in the widowmaker"; ap3 - PSHx: 16:04 fundoplication (Migraines); Appendectomy; ap3 - Immunization history:: Client reports receiving the 2nd dose of the Covid vaccine, Flu vaccine is not up to date. - Social history:: Smoking status: Patient denies any tobacco usage or history of. ROS: 16:56 Constitutional: Negative for fever, chills, and weight loss, Eyes: Negative for injury, alia pain, redness, and discharge, ENT: Negative for injury, pain, and discharge, Neck: Negative for injury, pain, and swelling, Respiratory: Negative for shortness of breath, cough, wheezing, and pleuritic chest pain, Back: Negative for injury and pain, : Negative for injury, bleeding, discharge, and swelling, MS/Extremity: Negative for injury and deformity, Skin: Negative for injury, rash, and discoloration, Psych: Negative for depression, anxiety, suicide ideation, homicidal ideation, and hallucinations, Allergy/Immunology: Negative for hives, rash, and allergies, Endocrine: Negative for neck swelling, polydipsia, polyuria, polyphagia, and marked weight changes, Hematologic/Lymphatic: Negative for swollen nodes, abnormal bleeding, and unusual bruising, 16:56 Cardiovascular: Positive for chest pain, 16:56 Abdomen/GI: Positive for abdominal pain, nausea, vomiting, and diarrhea, nausea, vomiting, abdominal cramps, of the epigastric area, right upper quadrant and left upper quadrant, 16:56 Neuro: Positive for headache, Exam: 16:57 Constitutional: This is a well developed, well nourished patient who is awake, alert, alia and in no acute distress. Head/Face: Normocephalic, atraumatic. Eyes: Pupils equal round and reactive to light, extra-ocular motions intact. Lids and lashes normal. Conjunctiva and sclera are non-icteric and not injected. Cornea within normal limits. Periorbital areas with no swelling, redness, or edema. ENT: Nares patent. No nasal discharge, no septal abnormalities noted. Tympanic membranes are normal and external auditory canals are clear. Oropharynx with no redness, swelling, or masses, exudates, or evidence of obstruction, uvula midline. Mucous membranes moist. Neck: Trachea midline, no thyromegaly or masses palpated, and no cervical lymphadenopathy. Supple, full range of motion without nuchal rigidity, or vertebral point tenderness. No Meningismus. Chest/axilla: Normal chest wall appearance and motion. Nontender with no deformity. No lesions are appreciated. Cardiovascular: Regular rate and rhythm with a normal S1 and S2. No gallops, murmurs, or rubs. Normal PMI, no JVD. No pulse deficits. Respiratory: Lungs have equal breath sounds bilaterally, clear to auscultation and percussion. No rales, rhonchi or wheezes noted. No increased work of breathing, no retractions or nasal flaring. Back: No spinal tenderness. No costovertebral tenderness. Full range of motion. Female : Normal external genitalia. Skin: Warm, dry with normal turgor. Normal color with no rashes, no lesions, and no evidence of cellulitis. MS/ Extremity: Pulses equal, no cyanosis. Neurovascular intact. Full, normal range of motion. Neuro: Awake and alert, GCS 15, oriented to person, place, time, and situation. Cranial nerves II-XII grossly intact. Motor strength 5/5 in all extremities. Sensory grossly intact. Cerebellar exam normal. Normal gait. Psych: Awake, alert, with orientation to person, place and time. Behavior, mood, and affect are within normal limits. 16:57 ECG was reviewed by the Attending Physician. 16:57 Abdomen/GI: Inspection: abdomen appears normal, Bowel sounds: normal, Palpation: mild abdominal tenderness, in the right upper quadrant and left upper quadrant, Liver: no appreciated palpable abnormalities, Hernia: not appreciated, Vital Signs: 16:03 BP 147 / 98; Pulse 85; Resp 17; Temp 98.6; Pulse Ox 100% ; Weight 77.11 kg; Height 5 ap3 ft. 4 in. ; Pain 7/10; 16:53 BP 131 / 91; Pulse 83; Resp 18; Pulse Ox 100% on R/A; mb9 18:35 BP 146 / 100; Pulse 93; Resp 18; Pulse Ox 97% on R/A; mb9 16:03 Body Mass Index 29.18 (77.11 kg, 162.56 cm) ap3 16:03 Pain Scale: Adult ap3 Bejou Coma Score: 17:01 Eye Response: spontaneous(4). Motor Response: obeys commands(6). Verbal Response: alia oriented(5). Total: 15. MDM: 16:01 Patient medically screened. alia 17:01 Differential diagnosis: cluster headache, cerebral vascular accident, abnormal EKG, alia acute pericarditis, anxiety, Cholelithiasis gastritis, pancreatitis, pleurisy, pneumonia, pulmonary embolus, stable angina, unstable angina, hypertensive headache, hyponatremia, tension headache, vasomotor headache, bowel obstruction, Cholelithiasis, diverticulitis, gastritis. HEART Score: History: Slightly Suspicious (0), ECG: Non specific repolarization disturbance / LBTB / PM (1), Age: > 45 and < 65 years (1), Risk Factors: > or = 3 Risk factors for atherosclerotic disease (2), [Hypercholesterolemia] [Hypertension] [+ Family HX] [Obesity] Troponin: < or = 1 x Normal Limit (0). The patient was given aspirin in the Emergency Department. MICHEAL Risk Score: 1 - Three or more CAD risk factors, 1 - Recent [<24hrs] Severe Angina, TOTAL SCORE = 2. Data reviewed: vital signs, nurses notes, lab test result(s), EKG, radiologic studies, plain films. Consideration of Admission/Observation Escalation of care including admission/observation considered. I considered the following discharge prescriptions or medication management in the emergency department Medications were administered in the Emergency Department. See MAR. Independent interpretation of the following test(s) in the Emergency Department EKG: See my EKG interpretation above. Test considered but Not performed: CT: NO CT CHEST. Historians other than the Patient: Spouse/Significant Other: , WELL INFORMED. Care significantly affected by the following chronic conditions: Hypertension, CAD, 50% LAD PROX. Counseling: I had a detailed discussion with the patient and/or guardian regarding the historical points, exam findings, and any diagnostic results supporting the discharge/admit diagnosis, the presence of at least one elevated blood pressure reading (>120/80) during this emergency department visit, lab results, radiology results, the need for further work-up and treatment in the hospital. 08/09 16:23 Order name: Basic Metabolic Panel; Complete Time: 17:29 [facility] 08/09 16:23 Order name: CBC with Diff [facility] 08/09 16:23 Order name: LFT's; Complete Time: 17:29 [facility] 08/09 16:23 Order name: Magnesium; Complete Time: 17:29 [facility] 08/09 16:23 Order name: NT PRO-BNP; Complete Time: 17:29 [facility] 08/09 16:23 Order name: PT-INR; Complete Time: 17:25 [facility] 08/09 16:23 Order name: Troponin HS; Complete Time: 17:29 [facility] 08/09 16:23 Order name: Lipase; Complete Time: 17:29 [facility] 08/09 16:23 Order name: Urinalysis w/ reflexes; Complete Time: 17:25 [facility] 08/09 17:09 Order name: CBC Smear Scan [facility] 08/09 19:28 Order name: Urinalysis w/ reflexes [facility] 08/09 19:28 Order name: Basic Metabolic Panel [facility] 08/09 19:28 Order name: Basic Metabolic Panel [facility] 08/09 19:28 Order name: CBC with Automated Diff [facility] 08/09 19:28 Order name: CBC with Automated Diff [facility] 08/09 19:28 Order name: Magnesium [facility] 08/09 19:28 Order name: Magnesium [facility] 08/09 20:20 Order name: Manual Differential [facility] 08/09 16:23 Order name: XRAY Chest (1 view); Complete Time: 17:05 [facility] 08/09 16:23 Order name: CT Head Brain wo Cont; Complete Time: 18:50 [facility] 08/09 16:23 Order name: CT Abd/Pelvis - IV Contrast Only; Complete Time: 18:50 [facility] 08/09 16:23 Order name: US Abdomen Limited; Complete Time: 18:50 [facility] 08/09 16:23 Order name: EKG; Complete Time: 16:23 [facility] 08/09 19:28 Order name: CONS Physician Consult [facility] 08/09 16:23 Order name: Cardiac monitoring; Complete Time: 16:26 [facility] 08/09 16:23 Order name: EKG - Nurse/Tech; Complete Time: 16:50 [facility] 08/09 16:23 Order name: IV Saline Lock; Complete Time: 16:50 [facility] 08/09 16:23 Order name: Labs collected and sent; Complete Time: 16:50 [facility] 08/09 16:23 Order name: O2 Per Protocol; Complete Time: 16:25 [facility] 08/09 16:23 Order name: O2 Sat Monitoring; Complete Time: 16: [facility] EC:57 Rate is 76 beats/min. Rhythm is regular. QRS [place] is Normal. NC interval is normal. QRS alia interval is normal. QT interval is normal. No Q waves. T waves are Normal. No ST changes noted. Clinical impression: NSR w/ Non-specific ST/T Changes and No evidence of ischemia. Interpreted by me. Reviewed by me. Administered Medications: 16:42 Drug: NS 0.9% IV 1000 ml IV at 1 bolus Per protocol; 1000 mL bolus Route: IV; Rate: 1 mb9 bolus; Site: right antecubital; 17:57 Follow up: Response: No adverse reaction; IV Status: Completed infusion mb9 16:42 Drug: Ondansetron IVP 4 mg IVP once; over 2 minutes Route: IVP; Site: right antecubital;mb9 17:57 Follow up: Response: No adverse reaction mb9 16:45 Drug: morphine IVP or IV 4 mg IVP once over 4 mins Route: IVP; Infused Over: 4 mins; mb9 Site: right antecubital; 17:57 Follow up: Response: No adverse reaction mb9 16:50 Drug: Famotidine IVP 20 mg IVP once; dilute with 10 mL 0.9% NaCl; give over 2 minutes mb9 Route: IVP; Site: right antecubital; 17:56 Follow up: Response: No adverse reaction mb9 17:13 Drug: Aspirin PO Chewable Tablet 81 mg PO once Route: PO; mb9 17:56 Follow up: Response: (VIS) Vaccine information sheet provided today. Questions and/or mb9 concerns addressed. VIS edition date: Feb 19, 2021. 18:53 Follow up: Response: No adverse reaction mb9 17:31 Drug: Rocephin IV 1 grams IV at per protocol once; Given slow IV push per pharmacy mb9 instructions Route: IV; Rate: per protocol; Site: right antecubital; 17:56 Follow up: Response: No adverse reaction; IV Status: Completed infusion mb9 18:57 Drug: Enoxaparin Sub-Q 1 mg/kg Sub-Q once Route: Sub-Q; Site: right lower abdomen; mb9 Disposition Summary: 08/09/23 17:45 Hospitalization Ordered Notes: Hospitalization Status: Observation alia Provider: Eliseo Fulton cha Condition: Stable alia Problem: new alia Symptoms: have improved alia Bed/Room Type: Standard alia Location: [facility] [place] ER HOLD(08/09/23 21:54) vc1 Room Assignment: ERHOLD-(08/09/23 21:54) vc1 Diagnosis - Chest pain, unspecified alia - Epigastric abdominal tenderness alia - Headache alia - Nausea with vomiting, unspecified alia - UTI/ Urinary tract infection, site not specified alia - Diverticulosis of large intestine without perforation or abscess without bleeding alia Forms: - Medication Reconciliation Form alia - SBAR form alia - Leadership Thank You Letter alia Signatures: Dispatcher [employer] EDRegino Brunson MD MD cha Prokisch, Amanda RN RN [id number] Patricia Nettles RN RN vc1 Marline Appiah RN RN mb9 Corrections: (The following items were deleted from the chart) :54 17:45 Telemetry/MedSurg (observation) alia vc1 :54 17:45 alia vc1
--- NOTE | 2023-08-09 18:13 | RAD REPORT ---
EXAM DESCRIPTION: CT - Head Brain Wo Cont - 08/09/2023 5:56 pm CLINICAL HISTORY: HEADACHE Headache, drowsiness COMPARISON: HEAD BRAIN W O CONTRAST dated 09/02/2012 TECHNIQUE: All CT scans are performed using dose optimization technique as appropriate and may inclu de automated exposure control or mA/KV adjustment according to patient size. FINDINGS: No intracranial hemorrhage, hydrocephalus or extra-axial fluid collection.No areas of brai n edema or evidence of midline shift. The paranasal sinuses and mastoids are clear. The calvarium is intact. IMPRESSION: No acute intracranial abnormality.
--- NOTE | 2023-08-09 18:16 | RAD REPORT ---
EXAM DESCRIPTION: CTAbdomen Pelvis W Contrast - 08/09/2023 5:57 pm CLINICAL HISTORY: Abdominal pain. ABD PAIN COMPARISON: Abdomen Pelvis W Contrast dated 05/28/2018 TECHNIQUE: Biphasic CT imaging of the abdomen and pelvis was performed with 100 ml non-ionic IV cont rast. All CT scans are performed using dose optimization technique as appropriate and may include automated exposure control or mA/KV adjustment according to patient size. FINDINGS: The lung bases are clear.Postsurgical changes of fundoplication. The liver, spleen, pancreas, adrenal glands and kidneys are within normal limits. No bowel obstruction, free air, free fluid or abscess. Prominent sigmoid diverticulosis coli without diverticulitis. No evidence of significant lymphadenopathy. Mild lumbosacral degenerative changes. IMPRESSION: No acute intra-abdominal or pelvic finding. Mild sigmoid diverticulosis coli.
[2023-08-09] MEDS ORDERED: ENOXAPARIN 80 MG/0.8 ML SQ ONE (18:55)
[2023-08-09] MEDS ORDERED: NITROGLYCERIN 0.4 MG/TAB SL PRN (19:27)
--- NOTE | 2023-08-09 19:38 | P.HP ---
Certification for Inpatient Patient admitted to: Observation With expected LOS: <2 Midnights Practitioner: I am a practitioner with admitting privileges, knowledge of patient current condition, hospital course, and medical plan of care. Services: Services provided to patient in accordance with Admission requirements found in Title 42 Section 412.3 of the Code of Federal Regulations Patient History Date of Service: 08/09/23 Reason for admission: Chest pain History of Present Illness: 64-year-old female with a history of GERD s/p fundoplication and coronary artery disease, with 50% proximal LAD stenosis from cath in 2020. She presented with 3 days of midsternal and epigastric pain that has been intermittent and associated with nausea and headaches. Patient states that at baseline she has some abdominal pain after every meal however since this chest pain episode started 3 days ago it has not been related to meals. Pain is nonradiating and nonexertional. She denies any diaphoresis or numbness of the upper extremity. On arrival to the ER her vital signs were within normal limits. ED labs were notable for WBC of 4 and UA +LE and WBCs. EKG showed PVCs but no ST changes. Imaging done with ultrasound of the abdomen, CT abdomen pelvis, CT head and chest x-ray which were all negative for any acute findings. She had required 4 mg of IV morphine, received IV fluid bolus 1 L, Zofran, Pepcid, aspirin and Rocephin in the ED. Allergies No Known Drug Allergies Allergy (Verified 01/27/22 14:37) Unknown Home Medications: NK [No Home Meds] 01/29/21 - Past Medical/Surgical History -: Coronary artery disease -: Hypertension -: Cardiac catheterization - Social History Alcohol use: No CD- Drugs: No Review of Systems 10-point ROS is otherwise unremarkable Physical Examination - Vital Signs Temperature: 98.6 F Blood Pressure: 147/98 Pulse: 85 Respirations: 17 Pulse Ox (%): 100 - Physical Exam General: Alert, In no apparent distress, Oriented x3 HEENT: Atraumatic, Normocephalic, PERRLA, Mucous membr. moist/pink Neck: Supple, JVD not distended, No Thyromegaly Respiratory: Clear to auscultation bilaterally, Normal air movement Cardiovascular: No edema, Normal pulses, Regular rate/rhythm Gastrointestinal: Normal bowel sounds, Soft and benign, Non-distended, No tenderness Musculoskeletal: No swelling, No erythema, No tenderness Integumentary: No rashes Neurological: Normal gait, Normal speech, Normal strength at 5/5 x4 extr - Studies Laboratory Data (last 24 hrs) 08/09/23 08/09/23 08/09/23 16:45 16:45 16:45 WBC 4.10 L Hgb 14.1 Hct 41.9 Plt Count 229 PT 11.2 INR 1.02 Sodium 138 Potassium 3.7 BUN 8 Creatinine 0.76 Glucose 83 Magnesium 2.1 Total Bilirubin 0.3 AST 26 ALT 25 Alkaline Phosphatase 77 Lipase 26 Assessment and Plan - Plan Atypical chest pain Patient will be admitted to telemetry Sublingual nitro Resume aspirin, statin and PPI Consult cardiology Possible UTI On Rocephin empirically Urine cultures pending GERD H/o fundoplication PPI twice daily Coronary artery disease H/o 50% proximal LAD stenosis Continue cardiac meds and cardiology to evaluate - Advance Directives Does patient have a Living Will: No Does patient have a Durable POA for Healthcare: No
[2023-08-09 20:19] LABS: White Blood Cell Scan OK (OK)
[2023-08-09 20:20] LABS: Blood Morphology Comment NOT SEEN (NOT SEEN); Platelet Estimate ADEQ
[2023-08-09] MEDS ORDERED: ATORVASTATIN 40 MG TAB ONE (20:41)
[2023-08-09] MEDS: ATORVASTATIN 40 MG TAB PO SCH (21:00)
[2023-08-09] MEDS ORDERED: TRAMADOL HCL 50 MG TAB ONE (22:42)
[2023-08-09] MEDS: TRAMADOL HCL 50 MG TAB PO PRN (22:49)
[2023-08-09 23:03] LABS: Urine Bacteria None Seen /HPF (<20); Urine Bilirubin NEGATIVE (Negative); Urine Blood Trace (Negative); Urine Clarity Clear (Clear); Urine Color Light-Yellow (Yellow); Urine Glucose NEGATIVE (Negative); Urine Mucus Slight /HPF (None Seen); Urine Protein NEGATIVE (Negative); Urine RBC <5 /HPF (None Seen); Urine Urobilinogen Normal (Normal)
[2023-08-09 23:05] LABS: Specific Gravity > 1.030 (1.005-1.030)
[2023-08-10 05:18] LABS: Absolute Lymphocytes (CBC) 1.4 K/uL (0.7-4.9); Hematocrit 38.4 % (36.0-45.0); MCV 90.5 fL (80-100); MPV 8.2 fL (7.6-11.3); Platelets 211 thou/uL (152-406); RBC Red Blood Cell Count 4.24 M/uL (3.86-4.86)
[2023-08-10 05:33] LABS: Potassium 3.5 mEq/L (3.5-5.1)
[2023-08-10] MEDS: PANTOPRAZOLE 40MG TABLET PO SCH (07:30)
[2023-08-10] MEDS: INFLUENZA VACCINE (for 6+ mo) 0.5 ML DOSE IMVAC ONE (08:00)
[2023-08-10] MEDS ORDERED: PANTOPRAZOLE 40MG TABLET PO ONE (08:22)
[2023-08-10] MEDS ORDERED: ASPIRIN EC 81 MG TAB PO ONE (08:22)
[2023-08-10] MEDS: ASPIRIN EC 81 MG TAB PO SCH (08:31)
[2023-08-10] MEDS ORDERED: TRAMADOL HCL 50 MG TAB ONE (12:07)
[2023-08-10] MEDS ORDERED: NITROGLYCERIN/D5W 25 MG/250 ML BTL IV ONE (14:16)
[2023-08-10] MEDS ORDERED: LIDOCAINE 1% 20 ML MDV ONE (15:33)
[2023-08-10] MEDS ORDERED: FENTANYL CITR 100 MCG/2 ML ONE (15:33)
[2023-08-10] MEDS ORDERED: VERAPAMIL HCL 10 MG/4 ML VIAL IV ONE (15:33)
[2023-08-10] MEDS ORDERED: HEPA 1000U/500MLS 2,000 UNIT/1,000 ML BAG IV ONE (15:33)
[2023-08-10] MEDS ORDERED: MIDAZOLAM HCL 2 MG/2 ML INJ ONE (15:33)
[2023-08-10] MEDS ORDERED: HEPARIN 10,000 UNIT/10 ML VIAL IV ONE (15:34)
[2023-08-10] MEDS ORDERED: ATROPINE SULF 1 MG/10 ML SYR IV ONE (15:34)
[2023-08-10] MEDS ORDERED: HEPARIN 5000 UNIT/ML 1 ML VIAL ONE (15:34)
[2023-08-10] MEDS ORDERED: CLOPIDOGREL 75 MG TABLET ONE (15:35)
[2023-08-10] MEDS ORDERED: TICAGRELOR 90 MG TABLET PO ONE (15:35)
[2023-08-10] MEDS ORDERED: ASPIRIN 325 MG TAB ONE (15:36)
[2023-08-10] MEDS ORDERED: NA CHLORIDE 0.9% 500 ML ONE (16:09)
--- NOTE | 2023-08-10 16:27 | EKG ---
Test Date: 2023-08-09 Test Time: 16:35:59 Dog Or Animal Sitter: MB MEASUREMENT RESULTS: Intervals: Rate: 76 [place]: 140 QRSD: 92 QT: 380 QTc: 427 [place]: P: 60 KS: 140 QRS: 102 T: 11 INTERPRETIVE STATEMENTS: Sinus rhythm with premature atrial complexes Rightward axis Low voltage QRS Nonspecific T wave abnormality Abnormal ECG Compared to ECG 01/27/2022 14:47:48 Right-axis deviation now present T-wave abnormality now present Myocardial infarct finding no longer present Electronically Signed On 08-10-23 16:25:45 SUPERVISOR DIALS by Aniket Avery
[2023-08-10] MEDS ORDERED: REGADENOSON 0.4 MG/5 ML SYR IV ONE (16:40)
--- NOTE | 2023-08-10 18:44 | OP ---
Date of Procedure: 08/10/2023 Surgeon: GUANACO PACHECO Procedures Performed: 1.Selective coronary angiogram. 2.Left heart catheterization. 3.FFR of mid LAD moderate stenosis with insignificant value of 0.86. Indication: Unstable angina. Known coronary artery disease involving the LAD. Access: Right radial artery 6-Ukrainian closed with TR band. Complications: None. Bleeding: Less than 20 mL. Anesthesia: Total sedation time was 50 minutes. Description Of Procedure: After risks, benefits, alternatives were explained, patient agreed to proc edure and signed informed consent. Patient was brought into cardiac catheterization laboratory, prep ped and draped in the usual sterile fashion. Then I accessed right radial artery using pediatric gal ropuncture kit, placed 6-Ukrainian Slender sheath and took 5-Ukrainian Walton 4.0 catheter into the aortic r oot over a J-wire, engaged left main, took standard views and then in the RCA, took standard views an d the catheter was pushed over the wire into the LV, measured the LVEDP. Pullback did not record any gradient. Then we gave systemic heparin to assure ACT level above 250 throughout the procedure and I took a pressure wire, the FFR wire, into the aortic root and pressures were equalized and at that t stephanie, heparin was given to assure ACT level above 250, and then I took the pressure wire into the left main, then LAD, passing at the area of stenosis and using Lexiscan, FFR was performed and the lowest number was 0.86, which was insignificant. Then, the wire was pulled back into the aortic root and t here was no drift. Final angiogram was satisfactory. Then, I removed the catheter and the sheath an d placed TR band with good hemostasis. Findings: 1.Left main; large and normal. 2.LAD; proximal segment is normal. Mid segment after the diagonal and the septal takeoff is 50% latrell nosed with negative FFR of 0.86. The rest of LAD is normal. 3.Left circumflex; it is small and nondominant and normal. 4.RCA; very large and dominant and normal. 5.Normal LVEDP at 5 mmHg. Conclusion: 1.Moderate mid LAD stenosis with negative FFR value of 0.86. 2.Normal LVEDP. Recommendation: Medical management. Patient can be released from Cardiology standpoint to follow up with me in the office in 1 week. SR/MODL Voice ID: [id number] Report ID: [id number]
--- NOTE | 2023-08-10 19:36 | CON ---
Date of Consultation: 08/10/2023 Reason For Consultation: Chest pain. History Of Present Illness: 63-year-old female with history of coronary artery disease, mid LAD 50% in 2020 cath, presented with chest pain, pressure-like, radiates to the neck and to the left upper ex tremity on and off, lasting a few minutes to 10 minutes each episode and spontaneous and comes back, becoming more frequent, made her very concerned to present to emergency room. Evaluated by bedside. She was chest pain free at that time, but last chest pain was about 2 hours prior to my evaluation. Past Medical History: Hypertension and coronary artery disease. Medications: Refer to reconciliation sheet for detailed list. Allergies: NO KNOWN DRUG ALLERGIES. Family History: No premature coronary artery disease or cancer. Social History: She does not smoke or drink. Does not use any drugs. Review of Systems: All systems reviewed and they were negative except as mentioned in HPI. Physical Examination: Vital Signs: Reviewed. Head and Neck: Pupils are equal, reactive to light. Intact eye movements. No JVD. No cervical lym phadenopathy. Neck is supple. Thyroid is not enlarged. Lungs: Clear to auscultation bilaterally. No rhonchi, wheezing, or crackles. No accessory muscle u se. Heart: Regular rate and rhythm. No extra sounds. Abdomen: Soft, nontender. Bowel sounds positive. No organomegaly. No masses or hernia. No rigidi ty or rebound. Extremities: No edema, clubbing, or cyanosis. Intact pulses. Skin: No rash or nodule. Neurologic: Alert, awake, oriented x3. No acute focal deficits appreciated. Investigations: Troponin first set is negative. BUN is 7, creatinine 0.7, hemoglobin is 13.4. Assessment And Recommendations: 1.Chest pain with known history of coronary artery disease. With that the chest pain has typical fe atures, this is suggestive of unstable angina. Keep her NPO. Plan for coronary angiogram today and possible PCI of the mid LAD. 2.Hypertension. Blood pressure is controlled. Continue current management. 3.Dyslipidemia. Recommend Lipitor 40 mg q.h.s. SR/MODL Voice ID: [id number] Report ID: [id number]
[2023-08-10] MEDS: CEFTRIAXONE 1,000 MG in NA CHLORIDE 0.9% 50 ML IVPB SCH (21:23)
[2023-08-10] MEDS: ONDANSETRON 4 MG/2 ML VIAL IV PRN (21:58)
[2023-08-10 22:16] VITALS: BMI 23.3
--- NOTE | 2023-08-11 07:41 | P.PN ---
Subjective Date of Service: 08/11/23 Chief Complaint: Chest pain Physical Examination - Vital Signs Temperature: 97.9 F Blood Pressure: 137/71 Pulse: 66 Respirations: 18 Pulse Ox (%): 98
--- NOTE | 2023-08-11 07:44 | P.DS ---
Admission Date: 08/09/23 Discharge Date: 08/11/23 Disposition: ROUTINE DISCHARGE Discharge Condition: FAIR Reason for Admission: Chest pain Brief History of Present Illness: 64-year-old female with a history of GERD s/p fundoplication and coronary artery disease, with 50% proximal LAD stenosis from cath in 2020. She presented with 3 days of midsternal and epigastric pain that has been intermittent and associated with nausea and headaches. Patient states that at baseline she has some abdominal pain after every meal however since this chest pain episode started 3 days ago it has not been related to meals. Pain is nonradiating and nonexertional. She denies any diaphoresis or numbness of the upper extremity. On arrival to the ER her vital signs were within normal limits. ED labs were notable for WBC of 4 and UA +LE and WBCs. EKG showed PVCs but no ST changes. Imaging done with ultrasound of the abdomen, CT abdomen pelvis, CT head and chest x-ray which were all negative for any acute findings. She had required 4 mg of IV morphine, received IV fluid bolus 1 L, Zofran, Pepcid, aspirin and Rocephin in the ED. General: Alert, In no apparent distress, Oriented x3 HEENT: Atraumatic, Normocephalic, PERRLA, Mucous membr. moist/pink Neck: Supple, JVD not distended, No Thyromegaly Respiratory: Clear to auscultation bilaterally, Normal air movement Cardiovascular: No edema, Normal pulses, Regular rate/rhythm Gastrointestinal: Normal bowel sounds, Soft and benign, Non-distended, No tenderness Musculoskeletal: No swelling, No erythema, No tenderness Integumentary: No rashes Neurological: Normal gait, Normal speech, Normal strength at 5/5 x4 extr Hospital Course: 63-year-old female patient with a past medical history of hypertension, hyperlipidemia, presented with chest pain. Nausea,. Was noted to have urinary tract infection, Was treated with IV antibiotics, as needed analgesics, as needed antiemetics. Was followed by cardiology for heart cath. Condition improved with Stable for discharge to home with follow-up appointment with cardiology and primary care physician. PROBLEM: Chest pain Urinary tract infection Hypertension Hyperlipidemia Heart cath, cardiology recommendation 1. Hypertension. Blood pressure is controlled. Continue current management. 3. Dyslipidemia. Recommend Lipitor 40 mg q.h.s. Low-cholesterol diet Follow-up with cardiology in [address] Avery for appointment Continue home medicines as previously prescribed GOAL: Clear understanding of disease process INSTRUCTIONS: Physician Discharge Instructions: -DC IV and DC home -Follow-up with PCP in 1 to 2 weeks -Please call Dr. Fulton at [phone] if any questions regarding hospital stay -Please call nursing station at [phone] if any nursing or medication questions -Return to the emergency room if symptoms worsen Diet: ADA, low sodium Activity: Fall precautions DME: Date Ordered: Name of Company: [employer] Services Needed: None Date or Referral: IMMUNIZATION Influenza Vaccine Indicated: Influenza Vaccine Given: Date Given: Pneumonia Vaccine Indicated: Pneumonia Vaccine Given: Date Given: Vital Signs/Physical Exam: Temp Pulse Resp BP Pulse Ox 97.9 F 66 18 137/71 98 08/11/23 07:41 08/11/23 07:41 08/11/23 07:41 08/11/23 07:41 08/11/23 07:41 Laboratory Data at Discharge: WBC 4.20 thou/uL (4.3-10.9) L 08/10/23 05:03 Hgb 13.4 g/dL (12.0-15.0) 08/10/23 05:03 Hct 38.4 % (36.0-45.0) 08/10/23 05:03 Plt Count 211 thou/uL (152-406) 08/10/23 05:03 PT 11.2 SECONDS (9.5-12.5) 08/09/23 16:45 INR 1.02 08/09/23 16:45 Sodium 139 mEq/L (136-145) 08/10/23 05:03 Potassium 3.5 mEq/L (3.5-5.1) 08/10/23 05:03 BUN 7 mg/dL (7-18) 08/10/23 05:03 Creatinine 0.70 mg/dL (0.55-1.02) 08/10/23 05:03 Glucose 91 mg/dL (74-106) 08/10/23 05:03 Magnesium 2.0 mg/dL (1.6-2.4) 08/10/23 05:03 Total Bilirubin 0.3 mg/dL (0.2-1.0) 08/09/23 16:45 AST 26 U/L (15-37) 08/09/23 16:45 ALT 25 U/L (13-56) 08/09/23 16:45 Alkaline Phosphatase 77 U/L (45-117) 08/09/23 16:45 Lipase 26 U/L (13-75) 08/09/23 16:45 Home Medications: Atorvastatin Calcium [Lipitor] 40 mg PO BEDTIME 30 Days #30 tab 08/11/23 Omeprazole [Prilosec] 1 tab PO DAILY 08/11/23 lisinopriL [Prinivil*] 10 mg PO DAILY 30 Days #30 tab 08/11/23 New Medications: Atorvastatin Calcium [Lipitor] 40 mg PO BEDTIME 30 Days #30 tab lisinopriL [Prinivil*] 10 mg PO DAILY 30 Days #30 tab Physician Discharge Instructions: 63-year-old female patient with a past medical history of hypertension, hyperlipidemia, presented with chest pain. Nausea,. Was noted to have urinary tract infection, Was treated with IV antibiotics, as needed analgesics, as needed antiemetics. Was followed by cardiology for heart cath. Condition improved with Stable for discharge to acute inpatient rehab with follow-up appointment with primary care physician. PROBLEM: Chest pain Urinary tract infection Hypertension Hyperlipidemia Heart cath, cardiology recommendation 1. Hypertension.. Lisinopril 10 mg daily 3. Dyslipidemia. Recommend Lipitor 40 mg q.h.s. Low-cholesterol diet Follow-up with cardiology in [address] Avery for appointment Continue home medicines as previously prescribed GOAL: Clear understanding of disease process INSTRUCTIONS: Physician Discharge Instructions: -DC IV and DC home -Follow-up with PCP in 1 to 2 weeks -Please call Dr. Fulton at [phone] if any questions regarding hospital stay -Please call nursing station at [phone] if any nursing or medication questions -Return to the emergency room if symptoms worsen Diet: ADA, low sodium Activity: Fall precautions DME: Date Ordered: Name of Company: [employer] Services Needed: None Date or Referral: IMMUNIZATION Influenza Vaccine Indicated: Influenza Vaccine Given: Date Given: Pneumonia Vaccine Indicated: Pneumonia Vaccine Given: Diet: AHA Activity: Fall precautions Followup: Jorge Richardson DO, DO [Primary Care Provider] - Aniket Avery MD [ACTIVE - CAN ADMIT] - 2-3 Days Time spent managing pt's care (in minutes): 55
[2023-08-11] MEDS: CEFTRIAXONE 1,000 MG in NA CHLORIDE 0.9% 50 ML IVPB ONE (11:29)
[2023-08-11 11:46] VITALS: BP 116/63; TEMP 97.6
--- NOTE | 2023-08-11 12:14 | P.PN ---
Subjective Date of Service: 08/12/23 Chief Complaint: Chest pain No complaint of pain, or shortness of breath General: Alert, In no apparent distress, Oriented x3 HEENT: Atraumatic, Normocephalic, PERRLA, Mucous membr. moist/pink Neck: Supple, JVD not distended, No Thyromegaly Respiratory: Clear to auscultation bilaterally, Normal air movement Cardiovascular: No edema, Normal pulses, Regular rate/rhythm Gastrointestinal: Normal bowel sounds, Soft and benign, Non-distended, No tenderness Musculoskeletal: No swelling, No erythema, No tenderness Integumentary: No rashes Neurological: Normal gait, Normal speech, Normal strength at 5/5 x4 extr Review of Systems per HPI Physical Examination - Vital Signs Temperature: 97.6 F Blood Pressure: 116/63 Pulse: 67 Respirations: 16 Pulse Ox (%): 95 Assessment And Plan - Plan - Plan Atypical chest pain Patient will be admitted to telemetry Sublingual nitro Resume aspirin, statin and PPI Consult cardiology plan for cardiac cath, Possible UTI On Rocephin empirically Urine cultures pending GERD H/o fundoplication PPI twice daily Coronary artery disease H/o 50% proximal LAD stenosis Continue cardiac meds and cardiology to evaluate Discharge Plan: Home - Code Status/Comfort Care Code Status: Full Code Critical Care: No Time Spent Managing PTS Care (In Minutes): 35
[2023-08-11 12:16] VITALS: O2SAT 95
[2023-08-12] MEDS ORDERED: lisinopriL 10 MG TAB PO SCH (09:00)
== END 2023-08-11 13:18 | disposition home or self-care (01) ==
LOC: ER 15:50 → ERHOLD 19:29 → 4TH 08-10 14:46
PROVIDERS: ADMIT Internal Medicine; ATTEND Hospitalist
PROC: 4A023N7 Measurement of Cardiac Sampling and Pressure, Left Heart, Percutaneous Approach (ICD-10-PCS; principal; 2023-08-11)
PROC: B2111ZZ Fluoroscopy of Multiple Coronary Arteries using Low Osmolar Contrast (ICD-10-PCS; 2023-08-11)
PROC: 4A033BC Measurement of Arterial Pressure, Coronary, Percutaneous Approach (ICD-10-PCS; 2023-08-11)
DX: I25.110 Atherosclerotic heart disease of native coronary artery with unstable angina pectoris (principal); N39.0 Urinary tract infection, site not specified; I10 Essential (primary) hypertension; E78.5 Hyperlipidemia, unspecified; K21.9 Gastro-esophageal reflux disease without esophagitis; K57.30 Diverticulosis of large intestine without perforation or abscess without bleeding; R51.9 Headache, unspecified; R11.2 Nausea with vomiting, unspecified
CPT/HCPCS: 36415; 70450; 71045; 74177; 76705; 76937; 80048; 80076; 81001; 83690; 83735; 83880; 84484; 85025; 85347; 85610; 93005; 93458; 93571; 96361; 96365; 96372; 96375; 99152; 99285; C1769; C1893; G0378; J0461; J0696; J1644; J2001; J2250; J2405; J2785; J3010; J7030; J7040; Q9966; Q9967

== ENCOUNTER → 2024-09-20 | Day surgery (SDC) | payer BC ==
[2024-09-16 14:50] LABS: Absolute Basophils 0.1 K/uL (0-0.5); Absolute Eosinophils 0.4 K/uL (0-0.5); Absolute Lymphocytes (CBC) 1.1 K/uL (0.7-4.9); Absolute Monocytes 0.4 K/uL (0.1-1.3); Absolute Neutrophil 3.6 K/uL (1.8-8.0); Basophils % 0.9 % (0-1.3); Eosinophils % 7.4 % (0-4.4); Hematocrit 39.7 % (36.0-45.0); Hemoglobin 13.2 g/dL (12.0-15.0); Lymphocytes % 20.1 % (15.3-44.8); MCH 29.1 pg (27.0-35.0); MCHC 33.1 g/dL (32.0-36.0); MPV 7.9 fL (7.6-11.3); Monocytes % 7.5 % (3.3-12.3); Neutrophils % 64.1 % (41.7-73.7); Nucleated Red Blood Cells % 0.1 % (0-0); Platelets 240 thou/uL (152-406); RBC Red Blood Cell Count 4.52 M/uL (3.86-4.86)
[2024-09-16 14:55] LABS: PT Prothrombin Time 10.4 SECONDS (10.0-13.0); PTT, Activated Partial Thromb 32.5 SECONDS (24.3-36.9); Protime INR 0.91
[2024-09-16 14:57] LABS: Anion Gap 6.1 mEq/L (5.0-15.0); Potassium 4.1 mEq/L (3.5-5.1)
--- NOTE | 2024-09-16 16:49 | RAD REPORT ---
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 No pleural effusions or pneumothorax. No pulmonary edema. CARDIAC/MEDIASTINUM: The cardiac silhouette is within normal limits. UPPER ABDOMEN: No significant abnormality. BONES: No acute abnormality. LINES/TUBES/OTHER: N/A IMPRESSION: No evidence of acute cardiopulmonary disease.
--- NOTE | 2024-09-17 12:13 | EKG ---
Test Date: 2024-09-16 Test Time: 15:36:38 Cable Puller: STONE MEASUREMENT RESULTS: Intervals: Rate: 65 NE: 138 QRSD: 92 QT: 430 QTc: 447 [place]: P: 73 NE: 138 QRS: 94 T: 58 INTERPRETIVE STATEMENTS: Normal sinus rhythm Rightward axis Low voltage QRS Borderline ECG Compared to ECG 08/09/2023 16:35:59 Atrial premature complex(es) no longer present T-wave abnormality no longer present Electronically Signed On 09-17-24 12:10:47 DATA WAREHOUSE MANAGER by Tao Carson
[~2024-09-20] MED LIST: ASPIRIN 325 MG TAB ONE; ATROPINE SULF 1 MG/10 ML SYR IV ONE; CLOPIDOGREL 75 MG TABLET ONE; FENTANYL CITR 100 MCG/2 ML ONE; HEPA 1000U/500MLS 2,000 UNIT/1,000 ML BAG IV ONE; HEPARIN 10,000 UNIT/10 ML VIAL IV ONE; HEPARIN 5000 UNIT/ML 1 ML VIAL ONE; LIDOCAINE 1% 20 ML MDV ONE; MIDAZOLAM HCL 2 MG/2 ML INJ ONE; NA CHLORIDE 0.9% 500 ML ONE; REGADENOSON 0.4 MG/5 ML SYR IV ONE; TICAGRELOR 90 MG TABLET PO ONE; VERAPAMIL HCL 10 MG/4 ML VIAL IV ONE
[2024-09-20 08:28] VITALS: TEMP 97.8
--- NOTE | 2024-09-20 10:12 | OP ---
Date of Procedure: 09/20/2024 Surgeon: GUANACO PACHECO Procedures Performed: 1. Selective coronary angiogram. 2. Left heart catheterization. 3. Fractional flow reserve of mid left anterior descending, moderate disease. It is insignificant at 0.88. Indication: Unstable angina. Access: Right radial artery 6-British, closed with TR band. Complications: None. Bleeding: Less than 50 mL. Total Sedation Time: 1 hour. Description Of Procedure: After risks, benefits, and alternatives were explained, patient agreed to procedure and signed informed consent. The patient was brought into cardiac catheterization laborato , prepped and draped in sterile fashion. Then, I accessed right radial artery using pediatric micr opuncture kit and ultrasound guidance, and placed 6-British Slender sheath and took 5-British [place] 4 c atheter over the J-wire into the aortic root, engaged left main, took standard views and then the RCA , took standard views and then gave systemic heparin to assure ACT level above 250 and then took a Co met wire into the aortic root. Pressures were equalized and then engaged the left main and sent the wire into the LAD passing the area of stenosis. FFR was done using Lexiscan and the lowest value was 0.88. Then, wire was pulled back. There was no drift. Final angiogram showed no complications. I removed the catheter and the sheath, placed TR band with good hemostasis. Findings: 1. Left main: Large and normal. 2. LAD: Large vessel. Proximal segment is normal. Mid segment, there is a focal 50% stenosis. FFR is negative at 0.88. Rest of LAD and diagonals are normal. 3. Left circumflex: Moderate size and normal. 4. RCA: Large and dominant and normal. Conclusion: Moderate LAD disease with negative FFR. Recommendation: Medical management. SR/MODL Voice ID: [id number] Report ID: [id number]
[2024-09-20 12:36] VITALS: BP 123/73; O2SAT 98
== END ==
LOC: CCL 08:03
PROVIDERS: ADMIT Internal Medicine; ATTEND Internal Medicine
DX: I25.110 Atherosclerotic heart disease of native coronary artery with unstable angina pectoris (principal); I10 Essential (primary) hypertension; E78.2 Mixed hyperlipidemia; G47.33 Obstructive sleep apnea (adult) (pediatric); F17.210 Nicotine dependence, cigarettes, uncomplicated; Z79.82 Long term (current) use of aspirin; Z79.899 Other long term (current) drug therapy; Z82.49 Family history of ischemic heart disease and other diseases of the circulatory system
CPT/HCPCS: 93005; 85025; 80048; 36415; 85610; 85347; 85730; 71046; 93454; 76937; 93571; C1893; Q9967; J1644; J2785; J2003; J2250; J3010; J7040; C1769; 99152; 99153; J0461

== ENCOUNTER 2025-02-19 13:22 | Emergency (ER) | payer BC ==
[2025-02-19] MEDS ORDERED: NA CHLORIDE 0.9% 1,000 ML ONE (14:01)
[2025-02-19] MEDS ORDERED: ONDANSETRON 4 MG/2 ML VIAL ONE (14:01)
[2025-02-19 14:22] LABS: Influenza A Ag Negative; Influenza B Ag Negative
[2025-02-19 14:24] LABS: SARS-CoV-2 Antigen Rapid Res Positive (Negative)
--- NOTE | 2025-02-19 14:28 | RAD REPORT ---
EXAM: Chest Pa And Lat (2 Views) HISTORY: 65 years Female Congestion;Cough COMPARISON: 09/16/2024 FINDINGS: LUNGS/PLEURA: The lungs are clear. No pleural effusions or pneumothorax. No pulmonary edema. CARDIAC/MEDIASTINUM: The cardiac silhouette is within normal limits. UPPER ABDOMEN: No significant abnormality. BONES: No acute abnormality. Fusion hardware in the cervical spine. LINES/TUBES/OTHER: N/A IMPRESSION: No evidence of acute cardiopulmonary disease. No significant change from prior.
--- NOTE | 2025-02-19 14:41 | EDPHYS ---
Physician Documentation [facility] Name: Armida Yan Age: 65 yrs Sex: Female : 1960 Arrival Date: 02/19/2025 Time: 13:22 Bed 12 Private MD: ED Physician Lorena Moore HPI: 02/19 17:57 This 65 yrs old Female presents to ER via Ambulatory with complaints of Flu dr5 Symptoms. 17:57 Onset: The symptoms/episode began/occurred 2 day(s) ago. Patient is a 65 female with dr5 history of migraines and maker blockage coming in with 2 days of fever, body aches, congestion. Patient reports that she has been taking antibiotics for a dental procedure she had last week. Patient reports that it was changed to Flagyl due to possible C. difficile due to her having diarrhea. Patient reports 2 days ago her symptoms and bodyaches started. Patient denies sick contact.. Historical: - Allergies: 13:47 No Known Drug Allergies; me1 - PMHx: 13:47 Migraines; blockage in widowmaker (Unknown); me1 - PSHx: 13:47 Appendectomy; me1 - Immunization history:: Adult Immunizations up to date. - Infectious Disease History:: Denies. - Social history:: Smoking status: Patient denies any tobacco usage or history of. ROS: 17:57 Constitutional: as per hpi dr5 Exam: 17:57 Constitutional: This is a well developed, well nourished patient who is awake, alert, dr5 and in no acute distress. Head/Face: Normocephalic, atraumatic. Eyes: Pupils equal round and reactive to light, extra-ocular motions intact. Lids and lashes normal. Conjunctiva and sclera are non-icteric and not injected. Cornea within normal limits. Periorbital areas with no swelling, redness, or edema. Neck: Trachea midline, no thyromegaly or masses palpated, and no cervical lymphadenopathy. Supple, full range of motion without nuchal rigidity, or vertebral point tenderness. No Meningismus. Chest/axilla: Normal chest wall appearance and motion. Nontender with no deformity. No lesions are appreciated. Cardiovascular: Regular rate and rhythm with a normal S1 and S2. Normal PMI, no JVD. No pulse deficits. Respiratory: Lungs have equal breath sounds bilaterally, clear to auscultation. No rales, rhonchi or wheezes noted. No increased work of breathing, no retractions or nasal flaring. Back: No spinal tenderness. No costovertebral tenderness. Full range of motion. Skin: Warm, dry with normal turgor. Normal color with no rashes, no lesions, and no evidence of cellulitis. MS/ Extremity: Pulses equal, no cyanosis. Neurovascular intact. Full, normal range of motion. Neuro: Awake and alert, GCS 15, oriented to person, place, time, and situation. Cranial nerves II-XII grossly intact. Motor strength 5/5 in all extremities. Sensory grossly intact. Cerebellar exam normal. Normal gait. Vital Signs: 13:44 BP 132 / 88; Pulse 115; Resp 18; Temp 99.9; Pulse Ox 98% ; Weight 72.57 kg; Height 5 me1 ft. 4 in. ; Pain 8/10; 13:44 Body Mass Index 27.46 (72.57 kg, 162.56 cm) me1 13:44 Pain Scale: Adult me1 MDM: 13:26 Medical Screening Exam initiated dr5 17:57 Differential diagnosis: viral Infection, bacterial infection, URI, bronchitis, dr5 pneumonia COVID, Flu. Data reviewed: vital signs, nurses notes, lab test result(s), Flu: negative COVID: Positive, radiologic studies, plain films. Consideration of Admission/Observation Escalation of care including admission/observation considered. Concern admission and patient found to be positive with oxygen requirement. I considered the following discharge prescriptions or medication management in the emergency department I discussed and recommended Over The Counter medications, Medications were administered in the Emergency Department. See MAR. Independent interpretation of the following test(s) in the Emergency Department X-Ray: My interpretation is Independent interpretation of x-ray did not reveal any infiltrates concerning for pneumonia.. Historians other than the Patient: Spouse/Significant Other: . Care significantly affected by the following chronic conditions: Migraines, blockage in maker. Care significantly affected by the following Social Determinants of Health: Poor access to healthcare and/or lack of insurance, Poor access to transportation, Problems related to employment. Counseling: I had a detailed discussion with the patient and/or guardian regarding the historical points, exam findings, and any diagnostic results supporting the discharge/admit diagnosis, the presence of at least one elevated blood pressure reading (>120/80) during this emergency department visit, lab results, radiology results, the need for outpatient follow up, for definitive care, a family practitioner, to return to the emergency department if symptoms worsen or persist or if there are any questions or concerns that arise at home. Medication response: Dexamethasone, Zofran, normal saline. Response to treatment: the patient's symptoms have resolved after treatment. 02/19 13:50 Order name: COVID-19 Ag + Flu A+B Ag; Complete Time: 14:24 dr5 02/19 13:50 Order name: Chest Pa And Lat (2 Views) XRAY; Complete Time: 14:33 dr5 02/19 13:50 Order name: IV Start; Complete Time: 13:59 dr5 Administered Medications: 14:07 Drug: NS 0.9% IV 1000 ml IV at 1000 ml once; to be given as a bolus over 60 minutes ap3 Route: IV; Rate: 1000 ml; Site: right antecubital; 15:12 Follow up: IV Status: Completed infusion; IV Intake: 1000ml ap3 14:07 Drug: Ondansetron IVP 4 mg IVP once; over 2 minutes Route: IVP; Site: right antecubital;ap3 15:12 Follow up: Response: No adverse reaction ap3 14:07 Drug: Dexamethasone IVP 10 mg IVP once; (not to exceed 40 mg) Route: IVP; Site: right ap3 antecubital; 15:12 Follow up: Response: No adverse reaction ap3 Disposition Summary: 02/19/25 14:40 Discharge Ordered Notes: Location: Home dr5 Condition: Stable dr5 Diagnosis - SARS-associated coronavirus as the cause of diseases classified elsewhere dr5 Followup: dr5 - With: Emergency Department - When: As needed - Reason: Worsening of condition Followup: dr5 - With: Private Physician - When: 1 - 2 days - Reason: Recheck today's complaints, Continuance of care, Re-evaluation by your physician Discharge Instructions: - Discharge Summary Sheet dr5 - COVID-19 dr5 Forms: - Medication Reconciliation Form dr5 - Patient Portal Instructions dr5 - Leadership Thank You Letter dr5 Prescriptions: - Paxlovid 300 mg (150 mg x 2)-100 mg Oral Tablet, Dose Pack - take 1 dose pack ORAL route per package directions; 1 application; Refills: 0, dr5 Product Selection Permitted - Zofran 4 mg Oral Tablet - take 1 tablet ORAL route every 12 hours As needed; 20 tablet; Refills: 0, dr5 Product Selection Permitted - Medrol (César) 4 mg Oral Tablets, Dose Pack - take 1 tablet ORAL route as directed - follow package instructions; 1 packet; dr5 Refills: 0, Product Selection Permitted Signatures: Dispatcher [employer] Ayla Ferraro RN RN ap3 Celeste Rodrigez RN RN me1 Murray Millan, ASSISTANT STORE MANAGER SALES-C ASSISTANT STORE MANAGER SALES-[facility]5
--- NOTE | 2025-02-19 14:41 | ER ---
Nurse's Notes [facility] Name: Armida Yan Age: 65 yrs Sex: Female : 1960 Arrival Date: 02/19/2025 Time: 13:22 Bed 12 Private MD: Diagnosis: SARS-associated coronavirus as the cause of diseases classified elsewhere Presentation: 02/19 13:44 Chief complaint: Patient states: ECHEVERRIA, cough, congestion, body aches and ear aches for a me1 few days. Reports diarrhea from antibiotics that she is on because she recently had her bottom teeth pulled. Coronavirus screen: Vaccine status: Patient reports being unvaccinated. Ebola Screen: No symptoms or risks identified at this time. Initial Sepsis Screen: Does the patient meet any 2 criteria? HR > 90 bpm. Does the patient have a suspected source of infection? No. Patient's initial sepsis screen is negative. Risk Assessment: Do you want to hurt yourself or someone else? Patient reports no desire to harm self or others. Onset of symptoms was February 16, 2025. 13:44 Method Of Arrival: Ambulatory ky1 13:47 Acuity: AKIN 4 me1 Triage Assessment: 13:47 General: Appears ill, well groomed, well developed, well nourished, Behavior is calm, me1 cooperative, appropriate for age, Reports ECHEVERRIA, cough, congestion, body aches and ear aches for a few days. Reports diarrhea from antibiotics that she is on because she recently had her bottom teeth pulled. Pain: Complains of pain in head Pain does not radiate. Pain currently is 8 out of 10 on a pain scale. Quality of pain is described as aching, Pain began 2-3 days ago. Is continuous. EENT: Reports nasal congestion. EENT: Reports pain in left ear and right ear. Neuro: Level of Consciousness is awake, alert, obeys commands, Oriented to person, place, time, situation, Appropriate for age. Cardiovascular: Patient's skin is warm and dry. Respiratory: Reports cough that is persistent Airway is patent Respiratory effort is even, unlabored, Respiratory pattern is regular, symmetrical. GI: No signs and/or symptoms were reported involving the gastrointestinal system. : No signs and/or symptoms were reported regarding the genitourinary system. Derm: Skin is intact, is healthy with good turgor, Skin is pink, warm \T\ dry. Musculoskeletal: Circulation, motion, and sensation intact. Range of motion: intact in all extremities, Reports body aches. Historical: - Allergies: 13:47 No Known Drug Allergies; me1 - PMHx: 13:47 Migraines; blockage in widowmaker (Unknown); me1 - PSHx: 13:47 Appendectomy; me1 - Immunization history:: Adult Immunizations up to date. - Infectious Disease History:: Denies. - Social history:: Smoking status: Patient denies any tobacco usage or history of. Screenin:08 [facility] ED Fall Risk Assessment (Adult) History of falling in the last 3 months, ap3 including since admission No falls in past 3 months (0 pts) Confusion or Disorientation No (0 pts) Intoxicated or Sedated No (0 pts) Impaired Gait No (0 pts) Mobility Assist Device Used No (0 pt) Altered Elimination No (0 pt) Score/Fall Risk Level 0 - 2 = Low Risk Oriented to surroundings, Maintained a safe environment, Educated pt \T\ family on fall prevention, incl call for assistance when getting out of bed, Assessed \T\ reinforced patient's understanding of fall precautions, Hourly rounding (assess needs \T\ fall precautionary measures) done, Used ambulatory aids as needed (educated on \T\ assisted with). Abuse screen: Denies threats or abuse. Nutritional screening: No deficits noted. Tuberculosis screening: No symptoms or risk factors identified. Assessment: 14:07 General: Appears ill, Behavior is calm, cooperative, appropriate for age. Pain: ap3 Complains of pain in generalized body aches. Neuro: Level of Consciousness is awake, alert, obeys commands, Oriented to person, place, time, situation, Appropriate for age Gait is steady, Speech is normal. Cardiovascular: Patient's skin is warm and dry. Respiratory: Airway is patent Respiratory effort is even, unlabored, Respiratory pattern is regular, symmetrical. Vital Signs: 13:44 BP 132 / 88; Pulse 115; Resp 18; Temp 99.9; Pulse Ox 98% ; Weight 72.57 kg; Height 5 me1 ft. 4 in. ; Pain 8/10; 13:44 Body Mass Index 27.46 (72.57 kg, 162.56 cm) ky1 13:44 Pain Scale: Adult [facility] ED Course: 13:24 Patient arrived in ED. im 13:26 [facility] Millan[facility] 13:26 Lorena Moore MD is Attending Physician. dr5 13:47 Triage completed. me1 13:47 Arm band placed on Patient placed in an exam room. me1 13:51 COVID swab sent to lab. me1 13:53 Celeste Rodrigez, RN is Primary Nurse. me1 13:53 COVID-19 Ag + Flu A+B Ag Sent. me1 13:59 Inserted saline lock: 22 gauge in right antecubital area, using aseptic technique. ap3 Flushed with 10 mL NS. 14:09 Patient has correct armband on for positive identification. Bed in low position. Call ap3 light in reach. Side rails up X2. Adult w/ patient. Door closed. Noise minimized. 14:26 Chest Pa And Lat (2 Views) XRAY In Process Unspecified. EDMS 15:12 Provided Education on: discharge education. ap3 15:12 No provider procedures requiring assistance completed. IV discontinued, intact, ap3 bleeding controlled, No redness/swelling at site. Pressure dressing applied. Administered Medications: 14:07 Drug: NS 0.9% IV 1000 ml IV at 1000 ml once; to be given as a bolus over 60 minutes ap3 Route: IV; Rate: 1000 ml; Site: right antecubital; 15:12 Follow up: IV Status: Completed infusion; IV Intake: 1000ml ap3 14:07 Drug: Ondansetron IVP 4 mg IVP once; over 2 minutes Route: IVP; Site: right antecubital;ap3 15:12 Follow up: Response: No adverse reaction ap3 14:07 Drug: Dexamethasone IVP 10 mg IVP once; (not to exceed 40 mg) Route: IVP; Site: right ap3 antecubital; 15:12 Follow up: Response: No adverse reaction ap3 Medication: 15:12 VIS not applicable for this client. ap3 Intake: 15:12 IV: 1000ml; Total: 1000ml. ap3 Outcome: 14:40 Discharge ordered by . dr5 15:12 Discharged to home ambulatory, ap3 15:12 Condition: good 15:12 Discharge instructions given to patient, family, Instructed on discharge instructions, follow up and referral plans. Demonstrated understanding of instructions, follow-up care, medications, Prescriptions given X 3, 15:12 Patient left the ED. ap3 Signatures: Dispatcher [employer] Ayla Ferraro RN RN ap3 Chika Verduzco Michelle, RN RN me1 Murray Millan, CASHIER AND WAITER/WAITRESS-C CASHIER AND WAITER/WAITRESS-Cdr5 Corrections: (The following items were deleted from the chart) 13:48 13:44 Acuity: AKIN 3 me1 me1 13:51 13:44 Chief complaint: Patient states: [place], cough, congestion, body aches and ear aches me1 for a few days. Reports diarrhea from antibiotics that she is on because she recently had her bottom teeth pulled. me1
[2025-02-19 15:21] VITALS: BP 132/88; TEMP 99.9; O2SAT 98
== END 2025-02-19 15:12 | disposition home or self-care (01) ==
LOC: ER 13:22
DX: U07.1 COVID-19 (principal)
CPT/HCPCS: 96361; 36415; 71046; 96375; 96374; 99284; 87428; J1100; J2405; J7030